=== PATIENT | female | born 1955 | race Caucasian/White ===

== ENCOUNTER → 2016-04-25 | Outpatient (CLI) | payer BC, OTHER ==
[~2016-04-25] MED LIST: CETI10TA84 PO; ESCI1TAB9 PO; HYDR25TA4 PO; LEVO112T4 PO; MULT-506 PO; PRM/3 PO; SYMIN160 INH
--- NOTE | 2016-04-25 11:24 | DIAGNOSTIC IMAGING REPORT ---
RIGHT FOOT MIN 3 VIEWS CLINICAL HISTORY: Right foot pain COMPARISON: None. DISCUSSION: 3 views reveal mild osteoarthritic changes the level the first metatarsal phalangeal joint. No acute fractures are visualized. There are no erosive or destructive changes. IMPRESSION: Minor degenerative change. No fractures identified. No evidence of erosive disease. Electronically signed by: Thom Cox M.D. 04/25/2016 11:23 AM Dictated Date/Time: 04/25/2016 11:22 AM
--- NOTE | 2016-04-25 11:35 | DIAGNOSTIC IMAGING REPORT ---
RIGHT ANKLE MIN 3 VIEWS CLINICAL HISTORY: RIGHT FOOT ANKLE PAIN Right pain COMPARISON: None. DISCUSSION: The bones and joint spaces appear intact. There is no evidence of fracture, dislocation or bony disease. There is no evidence for soft tissue swelling. IMPRESSION: Negative study. Electronically signed by: Theron Olmos M.D. 04/25/2016 11:33 AM Dictated Date/Time: 04/25/2016 11:33 AM
== END | disposition home or self-care (01) ==
LOC: C.RDSM 09:37
PROVIDERS: ATTEND Physical Medicine & Rehabilitation Sports Medicine
DX: M25.571 Pain in right ankle and joints of right foot (principal); M79.671 Pain in right foot

== ENCOUNTER → 2016-05-01 | Outpatient (CLI) | payer BC ==
--- NOTE | 2016-05-01 13:45 | MAMMOGRAPHY REPORT ---
BILATERAL DIGITAL SCREENING MAMMOGRAM WITH CAD: 05/01/2016 CLINICAL HISTORY: Routine screening. Patient has no complaints. TECHNIQUE: Current study was also evaluated with a Computer Aided Detection (CAD) system. Bilatera l CC and MLO views were obtained. COMPARISON: Comparison is made to exams dated: 04/30/2015 mammogram - [facility], 12/26/2013 mammogram, and 12/25/2012 mammogram - [facility]. BREAST COMPOSITION: There are scattered areas of fibroglandular density in both breasts. FINDINGS: No suspicious masses, calcifications, or areas of architectural distortion are noted in e ither breast. There has been no significant interval change compared to prior exams. IMPRESSION: ACR BI-RADS CATEGORY 1: NEGATIVE There is no mammographic evidence of malignancy. A 1 year screening mammogram is recommended. The p atient will receive written notification of the results. Approximately 10% of breast cancers are not detected with mammography. A negative mammographic repor t should not delay biopsy if a clinically suggestive mass is present. Italia Gil M.D. ah/:05/01/2016 10:46:05 Body Bumper: Roz GARCIA(R)(M), [facility] letter sent: Normal 1/2 BI-RADS Code: ACR BI-RADS Category 1: Negative
== END | disposition home or self-care (01) ==
LOC: C.MAMM 09:46
PROVIDERS: ATTEND Obstetrics & Gynecology
DX: Z12.31 Encounter for screening mammogram for malignant neoplasm of breast (principal)

== ENCOUNTER → 2016-05-26 | Outpatient (CLI) | payer BC ==
[2016-05-26 13:08] LABS: ALT/SGPT 26 U/L (12-78); BLOOD UREA NITROGEN 15 mg/dl (7-18); BUN/CREATININE RATIO 21.1 (10-20); CALCIUM 9.3 mg/dl (8.5-10.1); CARBON DIOXIDE 29 mmol/L (21-32); CHLORIDE 104 mmol/L (98-107); CHOLESTEROL 203 mg/dl (0-200); GLUCOSE 91 mg/dl (70-99); POTASSIUM 4.7 mmol/L (3.5-5.1); SODIUM 140 mmol/L (136-145)
[2016-05-26 13:17] LABS: ALB/GLOB RATIO 1.1 (0.9-2); ALKALINE PHOSPHATASE 125 U/L (45-117); AST/SGOT 17 U/L (15-37); CHOLESTEROL/HDL RATIO 4.3; HDL CHOLESTEROL 47 mg/dl; LDL CHOLESTEROL CALCULATED 137 mg/dl; TRIGLYCERIDES 95 mg/dl (0-150); VERY LOW DENSITY LIPOPROT CALC 19 mg/dl
== END | disposition home or self-care (01) ==
LOC: C.LABBFT 08:52
PROVIDERS: ATTEND Internal Medicine
DX: E55.9 Vitamin D deficiency, unspecified (principal); E78.5 Hyperlipidemia, unspecified

== ENCOUNTER → 2016-11-18 | Outpatient (CLI) | payer OTHER | END | disposition home or self-care (01) | LOC: C.LABBFT 13:22 | PROVIDERS: ATTEND Internal Medicine | DX: E03.9 Hypothyroidism, unspecified (principal) ==

== ENCOUNTER → 2017-01-02 | Outpatient (CLI) | payer OTHER ==
[~2017-01-02] MED LIST changes: +ASPI81TA28 PO; +IRBE-37 PO; +VITAMIN D PO; +VNTHFA/IN INH
--- NOTE | 2017-01-02 13:44 | MAMMOGRAPHY REPORT ---
THIS REPORT HAS BEEN AMENDED. UNILATERAL RIGHT DIGITAL DIAGNOSTIC MAMMOGRAM TOMOSYNTHESIS WITH CAD AND TARGETED RIGHT ULTRASOUND: 1 CLINICAL HISTORY: The patient reports a new palpable right breast lump, without associated pain or ot her complaints. TECHNIQUE: Breast tomosynthesis in addition to standard 2D mammography was performed. Current study was also evaluated with a Computer Aided Detection (CAD) system. Right CC and MLO 2-D and tomosynthe sis images were obtained. COMPARISON: Comparison is made to exams dated: 05/01/2016 mammogram, 04/30/2015 mammogram - [facility], 12/26/2013 mammogram, and 12/25/2012 mammogram - [facility]. BREAST COMPOSITION: There are scattered areas of fibroglandular density in the right breast. FINDINGS: A triangle marker daniels the site of the palpable lump in the right 6:00 breast. At the si te of the palpable lump there is a new lobulated mass in the right 6:00 far posterior breast. The ma ss is not completely included on the mammogram due to the far posterior location but measures at leas t 2.5 cm. The remainder of the right breast is stable mammographically compared to prior exams, with out suspicious masses, calcifications, or areas of architectural distortion noted. Targeted ultrasound was performed of the area of the palpable lump pointed out by the patient, in the right breast at approximately 5:00, 4 cm from the nipple. At the site of the palpable lump there is a lobulated hypoechoic solid-appearing mass which measures 3.0 x 2.4 x 2.2 cm. This corresponds wit h the mammographic mass and is suspicious. Recommend ultrasound guided core needle biopsy for furthe r evaluation. IMPRESSION: ACR BI-RADS CATEGORY 4: SUSPICIOUS, TARGETED ULTRASOUND ACR BI-RADS CATEGORY 4: SUSPICIO US Hypoechoic 3 cm mass at the site of the palpable lump in the right breast at approximately 5:00. The mass is suspicious and ultrasound-guided core needle biopsy is recommended for further evaluation. A phone call was made to the physician's office to confirm faxed results were received. The patient has been verbally notified of the results. The patient will return for ultrasound-guided biopsy late r today. Approximately 10% of breast cancers are not detected with mammography. A negative mammographic report should not delay biopsy if a clinically suggestive mass is present. Italia Gil M.D. ah/:01/02/2017 10:14:31 Acid Dumper: Janett HUNT)(Apoorva), [facility] letter sent: Abnormal 4/5 BI-RADS Code: ACR BI-RADS Category 4: Suspicious Ultrasound BI-RADS: ACR BI-RADS Category 4: Suspici ous AMENDMENT: 01/07/2017 Italia Gil M.D. Pathology from ultrasound guided biopsy of the right 5:00 breast mass was reviewed on 01/07/2017. Th e pathology shows high-grade carcinoma grade 3. The mass is negative for estrogen receptors, progest erone receptors, and HER-2/von. The pathology is concordant with the imaging appearance. Recommend surgical and oncology consultation. Also consider preoperative bilateral breast MRI, given the patho logy of a triple negative breast cancer. Amended BI-RADS: n/a
== END | disposition home or self-care (01) ==
LOC: C.MAMM 08:44
PROVIDERS: ATTEND Obstetrics & Gynecology
DX: N63.10 Unspecified lump in the right breast, unspecified quadrant (principal)

== ENCOUNTER → 2017-01-02 | Outpatient (CLI) | payer OTHER ==
--- NOTE | 2017-01-02 13:24 | Discharge Instructions ---
Discharge Instructions Procedure Procedure Date: Jan 02, 2017. Reason for visit: Right Mass. Discharge Discharge Date: Jan 02, 2017. Discharge Diagnosis: status post breast biopsy Instructions Activity Recommendations: Additional Limitations (see below) Return to School/Work: no limitations Recommended Home Diet: No Limitations Provider Instructions: ACTIVITY RECOMMENDATIONS: * No lifting, pushing, pulling or exercising the affected side for three days. RETURN TO SCHOOL/WORK: * You may return to work/school after the procedure, but do not perform any strenuous activities for 24 to 48 hours. MEDICATIONS: * Tylenol (two 325 mg) every four to six hours if needed for mild pain (if not allergic to Tylenol). DIET: * Resume previous diet. SPECIAL CARE INSTRUCTIONS: * Keep biopsy site dry for 24 hours. May shower after 24 hours, but do not soak (bathe) incision. * May remove Tegaderm (plastic patch) tomorrow AFTER showering. * Leave the steri-strips on for one week. Allow the steri-strips to fall off by themselves. If not off after one week, you may remove them. You may place a Bandaid crosswise over the strips, if desired. * Apply ice 10 minutes on and 10 minutes off as needed. * Wear a bra at bedtime to sleep more comfortably for 2-3 days. * Your referring physician should have the results after approximately 5 to 7 business days. * Call for unusual bleeding, fever, drainage, etc or if you have any questions call during normal business hours or after hours call Dr Gil, [phone]. FOLLOW UP VISIT: Follow-up with Referring Physician as scheduled. Allergies Coded Allergies: No Known Allergies (Unverified , 11/14/14) [place] More[place] Recommendations: Call your doctor if: * Temperature above 101 degrees * Pain not relieved by pain medicine ordered * There is increased drainage or redness from any incision * You have any unanswered questions or concerns. Your Doctors Instructions noted above were prepared by provider Italia Gil. Patient Signature Section: Patient Instructions Signature Page Lolly Valencia Patient (or Guardian) Signature/Date: I have read and understand the instructions given to me by my caregivers. Caregiver/RN/Doctor Signature/Date: The above-named patient and/or guardian has received patient instructions on this date. + Original Patient Signature Page (only) stays with chart. Please make copy for patient.
--- NOTE | 2017-01-02 13:42 | MAMMOGRAPHY REPORT ---
ULTRASOUND GUIDED BIOPSY RIGHT BREAST: 01/02/2017 CLINICAL HISTORY: Right 5:00 breast mass. PATIENT CONSENT: The procedure, risks and benefits were discussed with the patient and informed writt en consent was obtained. A timeout was performed immediately prior to the procedure. PROCEDURE DESCRIPTION: Preprocedural ultrasound was performed of the right axillary region, which tonja ws morphologically normal right axillary lymph nodes which are normal oval in shape and have normal e chogenic fatty harriett and thin peripheral cortices. No clear adenopathy is evident. With ultrasound guidance, aseptic technique, and lidocaine as the local anesthetic (1% lidocaine to a nesthetize the skin and 1% lidocaine with epinephrine to anesthetize the deeper tissues), the mass of concern in the right 5:00 breast was sampled 4 times with a 14-gauge Achieve biopsy needle. Immedia tely thereafter, with ultrasound guidance, aseptic technique, and lidocaine as the local anesthetic, a metallic localizer clip was placed centrally in the mass. Direct pressure was applied to the site immediately post procedure and hemostasis was achieved. Postprocedure unilateral mammograms were per formed to confirm placement of the clip in the expected location of the breast mass. The patient luisa erated the procedure without complication. She was given wound care instructions. The specimens were sent to pathology for analysis. COMPARISON: Comparison is made to exams dated: 01/02/2017 mammogram, 01/02/2017 ultrasound, 7 mammogram, 04/30/2015 mammogram - [facility], 12/26/2013 mammogram, and 12/25/2012 mammogram - [facility]. IMPRESSION: ULTRASOUND GUIDED BIOPSY Ultrasound guided core needle biopsy of the right 5:00 breast mass, with clip placement. The patient will receive pathology results from her referring provider. Italia Gil M.D. /:01/02/2017 13:26:45 Technical Analyst: Roz HUNT)(Apoorva), [facility]
--- NOTE | 2017-01-02 13:44 | MAMMOGRAPHY REPORT ---
UNILATERAL RIGHT DIGITAL DIAGNOSTIC MAMMOGRAM TOMOSYNTHESIS: 01/02/2017 CLINICAL HISTORY: Status post right breast biopsy. TECHNIQUE: Breast tomosynthesis in addition to standard 2D mammography was performed. Postprocedura l right CC and MLO tomosynthesis images including C views were obtained. COMPARISON: Comparison is made to exams dated: 01/02/2017 mammogram, 01/02/2017 ultrasound, 7 mammogram, 04/30/2015 mammogram - [facility], 12/26/2013 mammogram, and 12/25/2012 mammogram - [facility]. BREAST COMPOSITION: There are scattered areas of fibroglandular density in the right breast. FINDINGS: A new biopsy marker clip is seen within the biopsied mass centered around the right 5:00 b reast. No significant postbiopsy hematoma is seen. IMPRESSION: POST PROCEDURE IMAGING FOR MARKER PLACEMENT New biopsy marker clip status post right breast biopsy. Pathology results are pending. Approximately 10% of breast cancers are not detected with mammography. A negative mammographic report should not delay biopsy if a clinically suggestive mass is present. Italia Gil M.D. /:01/02/2017 13:34:46 Style Advisor: Roz GARCIA(Lucho)(M), [facility] BI-RADS Code: Post Procedure Imaging For Marker Placement
== END | disposition home or self-care (01) ==
LOC: C.MAMM 12:53
PROVIDERS: ATTEND Obstetrics & Gynecology
DX: C50.911 Malignant neoplasm of unspecified site of right female breast (principal)

== ENCOUNTER → 2017-01-12 | Outpatient (CLI) | payer OTHER ==
--- NOTE | 2017-01-12 11:18 | DIAGNOSTIC IMAGING REPORT ---
PET/CT SKULL-THIGH CLINICAL HISTORY: 61 years-old Female with BREAST CANCER. Right-sided breast mass identified within the 5:00 position 4 cm from the nipple, previously biopsied measuring up to 3.0 cm COMPARISON: Right breast and ultrasound 01/02/2017 TECHNIQUE: The patient was injected with 19.8 mCi of F-18 fluorodeoxyglucose (FDG) and an emission scan was performed from the skull vertex to the toes. Noncontrast CT was performed for attenuation correction and anatomic localization. The blood glucose level was 96 mg/dl. FINDINGS: HEAD AND NECK: Mildly hypermetabolic activity is noted about the oral pharynx, hypopharynx and epiglottis without correlate seen on the CT portion of the study suggesting recent speech. Mild mucosal secretions are seen within the left vallecula and left piriform sinus. Otherwise, there is a physiologic distribution of activity. CHEST: Mildly increased radiotracer uptake is seen homogeneously throughout the thyroid which may reflect underlying thyroiditis without discrete hypermetabolic nodule. Hypermetabolic likely conglomerate right axillary lymph nodes are seen measuring up to 1.6 x 1.2 cm on image 72 of series 3 which demonstrate slightly increased metabolic activity with SUV max of 1.3. Markedly FDG avid mass of the 5:00 region right breast with biopsy clip in place measures 2.4 x 2.2 cm on image 107 of series 3. No invasion into the chest wall. No additional hypermetabolic breast masses identified. No FDG avid pulmonary nodules identified to suggest pulmonary metastasis. No hypermetabolic mediastinal or hilar adenopathy. ABDOMEN AND PELVIS: There is a physiologic distribution of activity within the liver, spleen, adrenal glands, and urinary tracts. Slightly increased radiotracer uptake within the rectum is noted with SUV max of 2.9. No correlating mass on the CT portion of the study. MUSCULOSKELETAL SYSTEM AND EXTREMITIES: There is a physiologic distribution of activity within the bone marrow, with no hypermetabolic foci. ADDITIONAL CT FINDINGS: Mildly increased radiotracer uptake about the shoulders and hips is likely on a degenerative basis. No acute intra-abdominal or intrapelvic abnormality identified. Moderate atherosclerotic plaquing of the abdominal aorta. No bulky adenopathy. Mildly prominent periaortic lymph node measures 9 mm in short axis, image 144 series 3 the level of the kidneys without increased FDG uptake, likely physiologic. Prior hysterectomy. Normal appendix. Mild degenerative changes of the spine. IMPRESSION: 1. Hypermetabolic 2.4 cm mass of the 5:00 position right breast correlates with the previously biopsied breast carcinoma. 2. Mildly hypermetabolic conglomerate right axillary adenopathy measuring up to 1.6 cm is suspicious for lymphatic metastasis. 3. No additional hypermetabolic adenopathy or additional metastatic foci identified within the neck, chest, abdomen or pelvis. 4. Mildly increased FDG activity about the rectum is likely physiologic. This could be correlated with colonoscopy. The above report was generated using voice recognition software. It may contain grammatical, syntax or spelling errors. Electronically signed by: Mckay Dixon M.D. 01/12/2017 11:17 AM Dictated Date/Time: 01/12/2017 9:07 AM
== END | disposition home or self-care (01) ==
LOC: C.PET 06:40
PROVIDERS: ATTEND Surgery
DX: C50.311 Malignant neoplasm of lower-inner quadrant of right female breast (principal)

== ENCOUNTER → 2017-01-16 | Outpatient (CLI) | payer OTHER ==
[~2017-01-16] MED LIST changes: +OXYC-57 PO
--- NOTE | 2017-01-19 07:41 | MAMMOGRAPHY REPORT ---
UNILATERAL LEFT DIGITAL DIAGNOSTIC MAMMOGRAM TOMOSYNTHESIS WITH CAD AND TARGETED BILATERAL ULTRASOUND : 01/16/2017 CLINICAL HISTORY: Newly diagnosed triple negative right breast cancer. The patient reports that her doctor felt a possible left breast lump on clinical exam, however, the patient cannot clearly feel th e lump herself. The patient underwent breast MRI earlier the same day, which shows 2 adjacent abnorm al right axillary lymph nodes. TECHNIQUE: Breast tomosynthesis in addition to standard 2D mammography was performed. Current study was also evaluated with a Computer Aided Detection (CAD) system. Left CC and MLO 2-D and tomosynthes is images were obtained. COMPARISON: Comparison is made to exams dated: 01/16/2017 breast MRI, 01/02/2017 mammogram, 7 ultrasound biopsy, 01/02/2017 mammogram, 01/02/2017 ultrasound, and 05/01/2016 mammogram - [facility]. BREAST COMPOSITION: There are scattered areas of fibroglandular density in the left breast. FINDINGS: A triangle marker daniels the site of the palpable lump in the left 6:00 breast. There are no suspicious masses or other suspicious sonographic abnormalities in this region. The remainder of the left breast is stable compared to prior exams, without suspicious masses, calcifications, or area s of architectural distortion noted. Small nodular 8 mm asymmetry seen within the left medial train reservation clerk ior breast on the cc view is stable compared to multiple prior exams including the 2013 exam and show s no corresponding abnormal enhancement on breast MRI, and is therefore benign and felt to represent normal fibroglandular tissue. Targeted ultrasound was performed of the area of the palpable left breast lump. The patient could no t pinpoint the exact location of the lump but pointed to the general region in the inferior breast, t herefore, ultrasound was performed of the left lower outer and left lower inner quadrants. Sonograph ically normal tissue is seen, without evidence of a mass or other suspicious sonographic abnormality. Targeted ultrasound was performed of the right 5 to 6:00 breast to evaluate for the possible satellit e lesions seen on the recent breast MRI. In the right breast at 5:00, 6 cm from the nipple, there is a possible hypoechoic 4 x 6 mm mass, which may correspond with the enhancing mass seen on the breast MRI, likely the mass which is superior and posterior to the mass. An echogenic portion is seen cent rally, suggesting that this could represent an intramammary lymph node although no central vascularit y was seen. The other possible satellite lesion deep to the known malignancy was not appreciated on ultrasound. Targeted ultrasound of the right axillary region demonstrates 2 adjacent mildly prominent nodes, one measuring 11 x 9 mm and the other measuring 9 x 14 mm. The lymph nodes have normal echogenic fatty h yasmany although the peripheral hypoechoic cortices are at the upper limits of normal. These correspond with the areas of abnormal mitchell uptake seen on the recent PET CT scan and are therefore suspicious f or mitchell metastases. Recommend ultrasound-guided biopsy for further evaluation. Targeted ultrasound was also performed of the right 10:00 breast in the region of the most prominent focus seen on breast MRI. In the right breast at 10:00, 5 cm from the nipple, there is an oval circu mscribed hypoechoic 4 x 4 mm mass. In the right breast at 10:00, 2 cm from the nipple, there is a mi xed echogenicity 3 x 3 mm mass which contains a cystic portion as well as an adjacent round circumscr ibed hypoechoic 2 x 2 mm mass. In the right breast at 10:30, 4 cm from the nipple, there is an oval circumscribed oval hypoechoic 5 x 4 mm mass. One of the masses, possibly the mass in the right 10:30 breast, may correspond with the most prominent focus on the breast MRI which had benign MRI morpholo gy including benign type kinetics and circumscribed margins. The mass also has benign ultrasound fea tures and likely represents a fibroadenoma or other benign mass. IMPRESSION: ACR BI-RADS CATEGORY 4: SUSPICIOUS, TARGETED ULTRASOUND ACR BI-RADS CATEGORY 4: SUSPICIO US 1. No suspicious mammographic or sonographic abnormality at the site of the palpable left breast lum p. Recommend clinical follow-up. 2. Two adjacent prominent right axillary lymph nodes are seen on ultrasound, which correspond with th e areas of abnormal mitchell uptake seen on the recent PET-CT scan. Given the abnormal uptake, the node s are suspicious for metastases and ultrasound guided biopsy is recommended for further evaluation. 3. Small hypoechoic 6 mm mass in the right breast at 5:00 on ultrasound, which may correspond with on e of the satellite lesions seen on breast MRI. The other possible satellite lesion seen on breast MR I is not appreciated on ultrasound. 4. A few small benign-appearing hypoechoic circumscribed masses seen within the right 10 to 10:30 nicolas ast, one of which likely corresponds with an enhancing focus seen on breast MRI. Given the benign fe atures on ultrasound and MRI, the mass is benign and likely represents a fibroadenoma or other benign mass. The patient was verbally notified of the results. She returned later the same day for right axillary mitchell biopsy. Approximately 10% of breast cancers are not detected with mammography. A negative mammographic report should not delay biopsy if a clinically suggestive mass is present. Italia Gil M.D. ah/:01/18/2017 14:22:09 Core Dropper: Dawna Watkins, [facility] BI-RADS Code: ACR BI-RADS Category 4: Suspicious Ultrasound BI-RADS: ACR BI-RADS Category 4: Suspici ous
== END | disposition home or self-care (01) ==
LOC: C.MAMM 09:29
PROVIDERS: ATTEND Surgery
DX: N63.10 Unspecified lump in the right breast, unspecified quadrant (principal); C50.911 Malignant neoplasm of unspecified site of right female breast

== ENCOUNTER → 2017-01-23 | Outpatient (CLI) | payer OTHER ==
[~2017-01-23] MED LIST changes: -OXYC-57 PO
[2017-01-23 09:38] LABS: PROTHROMBIN TIME (PATIENT) 11.1 SECONDS (9.0-12.0)
== END | disposition home or self-care (01) ==
LOC: C.CPL 08:50
PROVIDERS: ATTEND Surgery
DX: Z01.812 Encounter for preprocedural laboratory examination (principal); C50.311 Malignant neoplasm of lower-inner quadrant of right female breast; C50.519 Malignant neoplasm of lower-outer quadrant of unspecified female breast

== ENCOUNTER 2017-01-27 08:07 | Observation (INO) | payer OTHER ==
[2017-01-23 15:31] VITALS: BMI 29.0
[2017-01-27] VITALS (8 sets, daily range): BP systolic 107–145; BP diastolic 69–91; PULSE 71–104; TEMP 36.4–37.3; O2SAT 95–98; Ht 162.6 cm; Wt 75.5 kg
[~2017-01-27] VITALS: Ht 162.6 cm; Wt 75.5 kg
[~2017-01-27 08:07] MED LIST changes: +CEFAZOLIN 2000MG IV PUSH 10 ML IV SCH; -CETI10TA84 PO; +LACTATED RINGER'S 1000ML 1,000 ML IV SCH; -PRM/3 PO
[2017-01-27] MEDS ORDERED: EpHEDrine SULFATE INJ 50 MG/ML AMP IV PRN ×2 (10:15→11:00)
[2017-01-27] MEDS ORDERED: PROMETHAZINE HCL INJ 6.25 MG in SODIUM CHLORIDE 0.9% 50ML 50 ML IV PRN ×2 (10:15→11:00)
[2017-01-27] MEDS ORDERED: ONDANSETRON INJ 2 MG/ML 2 ML VIAL IV PRN ×3 (10:15→15:15)
[2017-01-27] MEDS ORDERED: ATROPINE SULFATE 0.1 MG/ML 5ML SYR IV PRN ×2 (10:15→11:00)
[2017-01-27] MEDS ORDERED: FENTANYL CITRATE INJ 50 MCG/1 ML 2 ML VIAL IV PRN ×2 (10:15→11:00)
--- NOTE | 2017-01-27 10:26 | History & Physical Bridge Note ---
H&P Re-Evaluation Bridge Note: I have examined the patient, reviewed the History & Physical and in the interval since the performance of the History & Physical I have noted the following changes of clinical significance: No changes noted
[2017-01-27] MEDS ORDERED: MIDAZOLAM HCL 1 MG/ML 2ML VIAL ONE (10:37)
[2017-01-27] MEDS ORDERED: FENTANYL CITRATE INJ 50 MCG/1 ML 2 ML VIAL ONE (10:37)
[2017-01-27] MEDS ORDERED: BUPIVACAINE 0.5 % 5 MG/1 ML MPF 30ML VIAL ONE ×2 (10:40→10:48)
[2017-01-27] MEDS ORDERED: HEPARIN SOD (PORCINE) 1000 UNIT/ML 10 ML VIAL ONE (10:41)
[2017-01-27] MEDS ORDERED: BACITRACIN OINT 15 GM TUBE ONE (11:01)
[2017-01-27] MEDS ORDERED: LIDOCAINE HCL 2% 2 ML VIAL (20MG/ML) ONE (11:21)
[2017-01-27] MEDS ORDERED: LARYING-O-JET KIT (LTA) ONE ×2 (11:21)
[2017-01-27] MEDS ORDERED: PROPOFOL IV EMULSION 10 MG/ML 20 ML VIAL IV ONE ×2 (11:21→11:22)
[2017-01-27] MEDS ORDERED: ONDANSETRON INJ 2 MG/ML 2 ML VIAL ONE (11:22)
[2017-01-27] MEDS ORDERED: DEXAMETHASONE SOD INJ 4 MG/ML VIAL ONE (11:22)
[2017-01-27] MEDS ORDERED: METOCLOPRAMIDE HCL INJ 5 MG/ML 2 ML VIAL ONE (11:22)
[2017-01-27] MEDS ORDERED: ROCURONIUM BROMIDE 10 MG/ML 5 ML VIAL IV ONE (11:22)
[2017-01-27] MEDS ORDERED: DiphenhydrAMINE HCL 50 MG/ML VIAL ONE (11:22)
[2017-01-27] MEDS ORDERED: EpHEDrine SULFATE 50MG/5ML SYR ONE (11:22)
[2017-01-27] MEDS ORDERED: HYDROmorphone INJ 2 MG/ML SYR/VIAL ONE (11:48)
[2017-01-27] MEDS ORDERED: CEFAZOLIN SOD 1 GM VIAL ONE (14:04)
[2017-01-27] MEDS ORDERED: KETOROLAC TROMETHAMINE 30 MG/ML VIAL ONE (14:55)
[2017-01-27] MEDS ORDERED: OXYCODONE/ACETAMINOPHEN 5-325 TAB PO PRN (15:15)
[2017-01-27] MEDS ORDERED: MoRPHine SULFATE 4 MG/ML 1 ML CARP\\VIAL IV PRN (15:15)
[2017-01-27] MEDS ORDERED: ALBUTEROL HFA 8 GM INHALER INH PRN (15:15)
--- NOTE | 2017-01-27 15:16 | [facility] Post Operative Brief Note ---
Immediate Operative Summary Operative Date Jan 27, 2017. Pre-Operative Diagnosis Right Breast Cancer Post-Operative Diagnosis Right Breast Cancer Procedure(s) Performed Right Modified Radical Mastectomy; Mediport Placement Surgeon Dr. Michael Post Doc Fellowship Surgeon(s) Georgina Shell PA-C Estimated Blood Loss 20 cc Findings Left subclavian power port placed. Right modified radical mastectomy performed , rectus sheath taken at location of tumor. Level I and II nodes removed, thoracodorsal neurovascular bundle and long thoracic nerve identified and preserved. Specimens A: right breast mastectomy- short stitch- superior; long stitch- lateral; double stitch- deep; 3-stitches - axilla B: additional right axillary lymph node Drains 10mm yelena drain x2, (right axillary, left mastectomy) Anesthesia GETA Complication(s) None Disposition Recovery Room / PACU
--- NOTE | 2017-01-27 15:35 | Anesthesiology Progress Note ---
Anesthesia Post Op Note Date & Time Jan 27, 2017 at 15:35 Vital Signs Pain Intensity: 0 Vital Signs Past 12 Hours Date Time Temp Pulse Resp B/P (MAP) Pulse Ox O2 Delivery O2 Flow Rate FiO2 01/27/17 15:14 36.0 106 12 114/66 97 Oxymask 10 01/27/17 08:24 37.3 71 18 145/80 97 Room Air Notes Mental Status: alert / awake / arousable, participated in evaluation Pt Amnestic to Procedure: Yes Nausea / Vomiting: adequately controlled Pain: adequately controlled Airway Patency, RR, SpO2: stable & adequate BP & HR: stable & adequate Hydration State: stable & adequate Anesthetic Complications: no major complications apparent
--- NOTE | 2017-01-27 15:38 | [facility] Operative Report ---
Operative Report Operative Date Jan 27, 2017. Pre-Operative Diagnosis Right Breast Cancer Post-Operative Diagnosis Right breast cancer Procedure(s) Performed Left subclavian port placement; Right modified radical mastectomy Surgeon Dr. Michael Binder Technician Surgeon(s) Georgina Shell PA-C Estimated Blood Loss 20 cc Findings Left subclavian power port placed. Right modified radical mastectomy performed , rectus sheath taken at location of tumor. Level I and II nodes removed, thoracodorsal neurovascular bundle and long thoracic nerve identified and preserved. 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 She had preoperative staging with a PET scan and MRI that showed some active axillary lymph nodes. An FNA was unremarkable of this lymph node. After discussion at tumor Board, it was planned for modified radical mastectomy on the right. She also was planned for port placement for future chemotherapy. The risks of the procedure were discussed, all questions were answered, and the patient agreed to proceed with surgery as planned. Description of Procedure The patient was properly identified, consented, and taken to the operating room where she was placed in the supine position with both arms tucked and a shoulder roll placed vertically. General endotracheal anesthesia was induced. SCDs and a safety belt were placed. Preoperative antibiotics were administered. The patient's chest and neck was prepped and draped in the standard sterile fashion. Surgical timeout was performed and all parties were in agreement that this was the correct patient and procedure to be performed and we continued as planned. The patient was placed in Trendelenburg position. Local anesthetic was injected along the skin incision. The left subclavian vein was accessed on the first attempt using the access needle. The wire was placed and the needle was removed. Fluoroscopy confirmed placement into the subclavian vein extending into the superior vena cava. Transverse skin incision was made and a pocket was created for the port. The dilator and peel-away sheath were inserted over the wire. The catheter was then inserted through the peel-away sheath and fluoroscopy confirmed placement into the superior vena cava. The catheter was cut to 18 cm and attached to the port. The port was secured into place with 3- 0 Prolene sutures. A final x-ray revealed good placement of the port. The wound was irrigated and hemostasis was confirmed. The skin was closed with interrupted 3-0 Vicryl deep dermal sutures, followed by 4-0 Monocryl running subcuticular suture. Dermabond was placed over the wound. The port was accessed and sarina blood easily and flushed easily. It was flushed with heparinized saline. The patient was then repositioned and redraped so that we could proceed with a modified radical mastectomy of the right breast. The patient's right chest, arm , and axilla were prepped and draped in the standard sterile fashion. A transversely oriented elliptical incision was made that encompassed the nipple -arreolar complex. Flaps were raised to the clavicle superiorly, the sternum medially, and the rectus sheath inferiorly. The breast was then taken off the chest wall including the pectoralis fascia from superior medial to inferior lateral. At the area of the tumor, part of the rectus sheath was excised with the specimen. We then continued the dissection along the lateral border of the pectoralis muscle and continued with the axillary dissection. The clavicopectoral fascia was incised, we continued the dissection along the lateral border of the pectoralis muscle and under the pectoralis minor muscle. We excised level I and 2 lymph nodes. We then dissected tissue away from the axillary vein, being careful to leave a few millimeters of tissue to hopefully prevent lymphedema. We then continued our dissection along the chest wall, and the long thoracic nerve was identified. This was preserved throughout the case. We continued our dissection along the axillary vein until the thoracodorsal neurovascular bundle was identified, and this was also preserved throughout the case. We continued dissection along the medial portion of the latissimus dorsi muscle and down to the subscapularis and teres major muscle. We completed the dissection and the specimen was removed. The specimen was oriented. The wound was irrigated and hemostasis was confirmed. Two 10 mm YELENA drains were placed, one in the right axilla, one underneath the mastectomy flap. These exited inferior to the incision and were secured into place with 2- 0 nylon sutures. The skin was closed with interrupted 3-0 Vicryl deep dermal sutures, followed by 4-0 Monocryl running subcuticular suture. Dermabond was placed over the wound. The patient was extubated in the operating room and taken to the PACU where she recovered without apparent incident. All sponge, instrument and needle counts were correct at the conclusion of the procedure. The patient tolerated the procedure well. A chest x-ray was pending at the time of this dictation. I attest to the content of the Intraoperative Record and any orders documented therein. Any exceptions are noted below.
--- NOTE | 2017-01-27 15:47 | DIAGNOSTIC IMAGING REPORT ---
CHEST ONE VIEW PORTABLE HISTORY: port placement COMPARISON: None. FINDINGS: Left subclavian Port-A-Cath terminates in the SVC. The heart is normal in size. Small to moderate left pneumothorax. The AP component demonstrates a pleural gap of 8 mm. The basilar component demonstrates a pleural gap of 3 cm. The heart is normal in size. The right lung is clear. No pleural effusions. IMPRESSION: Interval placement left subclavian Port-A-Cath which terminates in the SVC. There is a small to moderate left pneumothorax. These findings were discussed with Dr. Michael at 3:50 PM 01/27/2017. Electronically signed by: Rylan Mendoza M.D. 01/27/2017 4:13 PM Dictated Date/Time: 01/27/2017 3:44 PM
[2017-01-27] MEDS ORDERED: IV FLUIDS COMPLETED PRN (16:00)
[2017-01-27] MEDS: LACTATED RINGER'S 1000ML 1,000 ML IV SCH (21:52)
[2017-01-28] VITALS (7 sets, daily range): BP systolic 132–142; BP diastolic 78–84; PULSE 66–69; TEMP 36.7–37.1; O2SAT 93–98
[2017-01-28] MEDS: KETOROLAC TROMETHAMINE 30 MG/ML VIAL IV. PRN ×2 (05:04→16:58)
[2017-01-28] MEDS: LEVOTHYROXINE 112 MCG TAB PO SCH (05:04)
--- NOTE | 2017-01-28 06:38 | DIAGNOSTIC IMAGING REPORT ---
CHEST 2 VIEWS ROUTINE CLINICAL HISTORY: pneumothorax COMPARISON STUDY: 01/27/2017 FINDINGS: The cardiac and mediastinal contours remain stable. There is a left-sided A-Port catheter unchanged in position. Surgical drains project over the right chest wall. There is a left-sided pneumothorax with a basilar pleural separation of approximately 5 cm. Air-fluid level visualized at the left base is consistent with a hydropneumothorax. There are atelectatic changes within the left lower lobe. IMPRESSION: 1. Enlarging left-sided hydropneumothorax Electronically signed by: Thom Cox M.D. 01/28/2017 6:36 AM Dictated Date/Time: 01/28/2017 6:33 AM
[2017-01-28] MEDS: ESCITALOPRAM OXALATE 10 MG TAB PO SCH (08:38)
[2017-01-28] MEDS: BUDESONIDE/FORMOTEROL FUMARATE 160/4.5 60 PUFFS/INHALER INH SCH (08:39)
[2017-01-28] MEDS: IRBESARTAN 150 MG TAB PO SCH (08:39)
--- NOTE | 2017-01-28 10:42 | Surgery Progress Note ---
Surgery Progress Note Date of Service Jan 28, 2017. Subjective Post OP Day: 1 + feeling well, + ambulating, + pain controlled, + diet (Tolerating regular diet ), No bowel movement, No nausea, No vomiting s/p right radical mastectomy with left port placement. Post-op x-ray 01/27/17 revealed Small to moderate left pneumothorax. Follow- up x-ray from 01/28/2017 AM revealed an enlarging left hydropneumothorax. Wearing compression bra, reports it is a little tight. Patient is alert and talkative. ' Objective Vital Signs: Date Time Temp Pulse Resp B/P (MAP) Pulse Ox O2 Delivery O2 Flow Rate FiO2 01/28/17 07:45 Nasal Cannula 2.0 01/28/17 07:16 36.9 66 17 142/84 (103) 93 Humidified Oxygen 2.0 01/28/17 05:42 Nasal Cannula 2.0 01/28/17 03:46 36.7 66 16 132/78 (96) 98 Oxymask 10.0 01/28/17 00:37 96 Mask 10.0 01/27/17 22:57 36.5 72 16 116/69 (85) 98 Oxymask 10.0 01/27/17 19:23 36.6 86 18 126/72 (90) 98 Humidified Air 10.0 Mask 01/27/17 18:24 36.5 93 18 136/76 (96) 95 Nasal Cannula 3.0 Humidified Air 01/27/17 17:17 36.7 97 18 107/69 (82) 97 Nasal Cannula 3.0 Humidified Air 01/27/17 16:47 96 Nasal Cannula 2.0 01/27/17 16:46 36.4 103 18 109/72 (84) 96 Nasal Cannula 2.0 01/27/17 16:15 36.7 104 18 130/91 (104) 96 Nasal Cannula 2.0 01/27/17 16:05 96 18 122/73 96 Nasal Cannula 2 01/27/17 15:50 36.0 103 21 121/72 96 Nasal Cannula 2 01/27/17 15:40 111 21 119/71 95 Nasal Cannula 2 01/27/17 15:30 114 20 116/66 98 Oxymask 10 01/27/17 15:20 108 19 119/66 97 Oxymask 10 01/27/17 15:14 36.0 106 12 114/66 97 Oxymask 10 Physical Exam: DOLORES drainage (DOLORES#1 left breast = 70ml, DOLORES#2 right breast 40 ml) General Appearance: WD/WN, no apparent distress Head: normocephalic, atraumatic Neck: supple, trachea midline Respiratory/Chest: no respiratory distress, no accessory muscle use, + pertinent finding (Mild TTP over incision sites. No swelling, erythema or incisional drainage noted. ) Incision(s): clean, dry, intact, no erythema, no drainage Assessment & Plan POD#1 s/p right radical mastectomy and left port placement with DOLORES drain x 2 Patient seen and examined with Dr. Michael. Doing well, tolerating regular diet. Pain controlled with PO Percocet. Follow-up PA/Lateral CXR this PM to follow left sided pneumothorax Surgery will continue to follow
[2017-01-28] MEDS: LACTATED RINGER'S 1000ML 1,000 ML IV SCH (11:19)
--- NOTE | 2017-01-28 16:04 | DIAGNOSTIC IMAGING REPORT ---
CHEST 2 VIEWS ROUTINE CLINICAL HISTORY: Follow-up left hydropneumothorax. COMPARISON STUDY: Chest radiograph January 28, 2017 at 5:04 AM FINDINGS: A left subclavian Plhaor-s-Vhmm is in place. A moderate size left hydropneumothorax has mildly increased in size since exam performed earlier today. The basilar component has slightly diminished while the apical component has increased. There is no right pneumothorax. Right chest wall surgical drains are in place. IMPRESSION: Mild increase in size of a moderate left hydropneumothorax since exam performed earlier today. Electronically signed by: Js Aguilar M.D. 01/28/2017 4:02 PM Dictated Date/Time: 01/28/2017 3:58 PM
[2017-01-29] MEDS: LACTATED RINGER'S 1000ML 1,000 ML IV SCH (00:22)
[2017-01-29] MEDS: LEVOTHYROXINE 112 MCG TAB PO SCH (05:20)
--- NOTE | 2017-01-29 07:03 | DIAGNOSTIC IMAGING REPORT ---
CHEST 2 VIEWS ROUTINE CLINICAL HISTORY: left pneumothorax COMPARISON STUDY: 01/28/2017 FINDINGS: The left-sided A-Port catheter remains unchanged in position. Surgical drains project over the right chest wall. There is a persistent left-sided hydropneumothorax slightly smaller than on the preceding study. There are persistent airspace opacities within the left lower lobe. IMPRESSION: Slight interval decrease in the size of the moderate left-sided hydropneumothorax. Electronically signed by: Thom Cox M.D. 01/29/2017 7:02 AM Dictated Date/Time: 01/29/2017 7:00 AM
[2017-01-29 07:30] VITALS: BP 150/98; PULSE 68; TEMP 36.8; O2SAT 93
[2017-01-29] MEDS: ESCITALOPRAM OXALATE 10 MG TAB PO SCH (09:04)
[2017-01-29] MEDS: IRBESARTAN 150 MG TAB PO SCH (09:04)
[2017-01-29] MEDS: BUDESONIDE/FORMOTEROL FUMARATE 160/4.5 60 PUFFS/INHALER INH SCH (09:04)
[2017-01-29] MEDS ORDERED: NURSING VERBAL MED ORDER ONE (09:30)
--- NOTE | 2017-01-29 09:33 | Surgery Progress Note ---
Surgery Progress Note Date of Service Jan 29, 2017. Subjective Post OP Day: 2 + feeling well, + ambulating, + pain controlled, + diet (Tolerating regular diet ), No complaints, No SOB, No nausea, No vomiting Patient presents 2 days s/p right radical mastectomy with left access port placement. She developed a post-op left hydropneumothorax, Asymptomatic at this time. Denies chest pain, SOB, coughing, wheezing. Doing well, would like to go home today. Objective Vital Signs: Date Time Temp Pulse Resp B/P (MAP) Pulse Ox O2 Delivery O2 Flow Rate FiO2 01/29/17 07:36 Nasal Cannula 2.0 Humidified Oxygen 01/29/17 07:30 36.8 68 20 150/98 (115) 93 Room Air 01/29/17 00:10 Oxymask Humidified Oxygen 01/28/17 23:09 36.8 68 16 138/84 (102) 97 Oxymask 2.0 Humidified Oxygen 01/28/17 15:48 36.9 68 16 141/82 (101) 94 Room Air 01/28/17 15:45 95 Nasal Cannula 2.0 01/28/17 11:20 37.1 69 18 137/82 (100) 95 Room Air Physical Exam: DOLORES drainage (210 ml DOLORES #2, 225 ml DOLORES#1 Yesterday, serosanguinous ) General Appearance: WD/WN, no apparent distress Head: normocephalic, atraumatic Neck: supple, trachea midline Respiratory/Chest: chest non-tender, no respiratory distress, no accessory muscle use Abdomen: non tender, non distended, soft, no organomegaly Diagnostic Interpretation: CHEST 2 VIEWS ROUTINE CLINICAL HISTORY: left pneumothorax COMPARISON STUDY: 01/28/2017 FINDINGS: The left-sided A-Port catheter remains unchanged in position. Surgical drains project over the right chest wall. There is a persistent left-sided hydropneumothorax slightly smaller than on the preceding study. There are persistent airspace opacities within the left lower lobe. IMPRESSION: Slight interval decrease in the size of the moderate left-sided hydropneumothorax. Assessment & Plan POD #2 s/p right radical mastectomy and left port placement Patient seen and examined with Dr. Michael. Doing well, remains asymptomatic, tolerating regular diet, pain controlled, DOLORES drain in place x 2 - serosanguinous. CXR this AM reported slight improvement. Findings reviewed with Dr. Rea Patient no longer needs fluids - D/C IV access Patient may shower, advised to cover her drains if she does so. F/U PA/Lateral CXR in AM Will F/U in AM, Possible discharge tomorrow. Feel free to contact with any questions or concerns. ambulate POD#1 s/p right radical mastectomy and left port placement with DOLORES drain x 2 Patient seen and examined with Dr. Michael. Doing well, tolerating regular diet. Pain controlled with PO Percocet. Follow-up PA/Lateral CXR this PM to follow left sided pneumothorax Surgery will continue to follow
[2017-01-29 15:05] VITALS: BP 137/91; PULSE 89; TEMP 37.1; O2SAT 95
[2017-01-29 15:45] VITALS: O2SAT 95
[2017-01-29 23:01] VITALS: BP 148/80; PULSE 78; TEMP 37.3; O2SAT 98
[2017-01-30] MEDS: LEVOTHYROXINE 112 MCG TAB PO SCH (05:38)
--- NOTE | 2017-01-30 06:48 | DIAGNOSTIC IMAGING REPORT ---
CHEST 2 VIEWS ROUTINE HISTORY: 61 years-old Female Left pneumothorax follow-up study in a patient with left-sided pneumothorax COMPARISON: Chest radiograph 01/29/2017 TECHNIQUE: 2 views of the chest FINDINGS: Left-sided Znlfgr-[id number]-Agka catheter is unchanged in positioning. Cardiomediastinal and hilar silhouettes are within normal limits. Persistent left-sided hydropneumothorax appears unchanged airspace opacities at the left lung base are redemonstrated. Bones appear grossly intact. IMPRESSION: Unchanged appearance of the small to moderate left hydropneumothorax with persistent left basilar consolidation suggesting atelectasis. The above report was generated using voice recognition software. It may contain grammatical, syntax or spelling errors. Electronically signed by: Mckay Dixon M.D. 01/30/2017 6:47 AM Dictated Date/Time: 01/30/2017 6:44 AM
[2017-01-30 08:35] VITALS: O2SAT 94
[2017-01-30] MEDS: ESCITALOPRAM OXALATE 10 MG TAB PO SCH (08:50)
[2017-01-30] MEDS: IRBESARTAN 150 MG TAB PO SCH (08:51)
[2017-01-30 09:19] VITALS: BP 130/77; PULSE 78; TEMP 36.5; O2SAT 94
[2017-01-30] MEDS: BUDESONIDE/FORMOTEROL FUMARATE 160/4.5 60 PUFFS/INHALER INH SCH (09:23)
[2017-01-30 10:00] VITALS: BP 130/77; PULSE 78; TEMP 36.5; O2SAT 94
--- NOTE | 2017-01-30 10:38 | Surgery Progress Note ---
Surgery Progress Note Date of Service Jan 30, 2017. Subjective Post OP Day: 3 + feeling well, + ambulating, + pain controlled, No complaints, No chest pain, No SOB Patient sitting up in chair next to bed- no new concerns and no complaints. Objective Vital Signs: Date Time Temp Pulse Resp B/P (MAP) Pulse Ox O2 Delivery O2 Flow Rate FiO2 01/30/17 07:15 Nasal Cannula 3.0 01/29/17 23:15 Nasal Cannula 2.0 Oxymask Humidified Oxygen 01/29/17 23:01 37.3 78 16 148/80 (102) 98 Nasal Cannula 2.0 Oxymask Humidified Oxygen 01/29/17 15:45 95 Nasal Cannula 2.0 Oxymask Humidified Oxygen 01/29/17 15:05 37.1 89 18 137/91 (106) 95 2.0 General Appearance: WD/WN, no apparent distress Head: normocephalic, atraumatic Respiratory/Chest: chest non-tender, lungs clear, no respiratory distress, no accessory muscle use Incision(s): clean, dry, intact Laboratory Results: CHEST 2 VIEWS ROUTINE HISTORY: 61 years-old Female Left pneumothorax follow-up study in a patient with left-sided pneumothorax COMPARISON: Chest radiograph 01/29/2017 TECHNIQUE: 2 views of the chest FINDINGS: Left-sided Eoksjo-v-Mzua catheter is unchanged in positioning. Cardiomediastinal and hilar silhouettes are within normal limits. Persistent left-sided hydropneumothorax appears unchanged airspace opacities at the left lung base are redemonstrated. Bones appear grossly intact. IMPRESSION: Unchanged appearance of the small to moderate left hydropneumothorax with persistent left basilar consolidation suggesting atelectasis. The above report was generated using voice recognition software. It may contain grammatical, syntax or spelling errors. Electronically signed by: Mckay Dixon M.D. 01/30/2017 6:47 AM Dictated Date/Time: 01/30/2017 6:44 AM Assessment & Plan POD #3 s/p Right Modified Radical Mastectomy with Left Chest Power Port Placement, post-op hydropneumothorax Patient continues to feel well- no new concerns. Patient tolerating diet, pain is controlled, incision is clean, dry, and intact. Patient continues to remain asymptomatic from hydropneumothorax. CXR reviewed from this AM. Pathology reviewed and discussed with patient. Have been discussing patient with Dr. Rea- will place official consult in to Thoracic Surgery. Patient to be discharged today. Patient to follow-up with Dr. Michael in the office next week- will obtain CXR Thursday prior to outpatient appointment. Patient will also follow-up with Dr. Rea as well. Patient seen and examined with Dr. Michael. If patient were to develop pain, chest pain, shortness of breath she is to return to ED for evaluation. POD #2 s/p right radical mastectomy and left port placement Patient seen and examined with Dr. Michael. Doing well, remains asymptomatic, tolerating regular diet, pain controlled, DOLORES drain in place x 2 - serosanguinous. CXR this AM reported slight improvement. Findings reviewed with Dr. Rea Patient no longer needs fluids - D/C IV access Patient may shower, advised to cover her drains if she does so. F/U PA/Lateral CXR in AM Will F/U in AM, Possible discharge tomorrow. Feel free to contact with any questions or concerns. POD#1 s/p right radical mastectomy and left port placement with DOLORES drain x 2 Patient seen and examined with Dr. Michael. Doing well, tolerating regular diet. Pain controlled with PO Percocet. Follow-up PA/Lateral CXR this PM to follow left sided pneumothorax Surgery will continue to follow
[2017-01-30] MEDS ORDERED: OXYC-57 PO ×2 (10:53→11:00)
--- NOTE | 2017-01-30 10:56 | Discharge Instructions ---
Discharge Instructions Date of Service Jan 30, 2017. Admission Reason for Admission: Right Breast Cancer Discharge Discharge Diagnosis / Problem: Right Breast Cancer Discharge Goals Goal(s): Decrease discomfort, Improve function, Learn about illness Activity Recommendations Activity Limitations: as noted below Lifting Limitations: no more than 10 pounds Exercise/Sports Limitations: until after follow-up appointment May Resume Sexual Activity: after follow-up appointment Shower/Bathe: no limitations Driving or Machine Use: resume 1 day after discharge . Instructions / Follow-Up Instructions / Follow-Up You have a follow-up appointment with Dr. Michael next February 03. Please present to [facility] to obtain your chest x-ray prior to your appointment. Please call the office at [phone] with any questions or concerns. Current Hospital Diet Patient's current hospital diet: Regular Diet Discharge Diet Recommended Diet: Regular Diet Procedures Procedures Performed: Right Modified Radical Mastectomy; Mediport Placement Pending Studies Studies pending at discharge: yes List of pending studies: Pathology report. Medical Emergencies . Who to Call and When: Medical Emergencies: If at any time you feel your situation is an emergency, please call 911 immediately. . Non-Emergent Contact Non-Emergency issues call your: Primary Care Provider, Surgeon Call Non-Emergent contact if: temperature is above 101.5, your pain is not controlled, wound has increased drainage, wound has increased redness . "Provider Documentation" section prepared by Lavern Oquendo. . VTE Core Measure Inpt VTE Proph given/why not?: SCD's [place] Drug Monitoring Program Search Results: patient reviewed within database, no issues identified
[2017-01-30 11:20] VITALS: O2SAT 94
--- NOTE | 2017-01-30 12:03 | SURGICAL CONSULTATION ---
DATE OF CONSULTATION: 01/30/2017 REASON FOR CONSULTATION: Left pneumothorax. HISTORY OF PRESENT ILLNESS: This is a very nice 61-year-old female who underwent a right modified radical mastectomy and a left subclavian port placement by Dr. Lance Michael on 01/27/2017. She did well; however, she was noted to have an iatrogenic pneumothorax on the left side. This was watched in the following day on 01/28/2017 and it was about the same; however, yesterday on 01/29/2017, it appeared to be a bit larger to me. Today, she had another x-ray and it appears to be a bit smaller, although the basilar aspect of it is still fairly significant with flattening of the diaphragm. She really has no symptoms. She stated that 2 days ago, she had some pain upon inspiration, but this has now abated. Saturations have been very good. PAST MEDICAL HISTORY: 1. Cancer, right breast. 2. Hypertension. 3. Hypothyroidism. PAST SURGICAL HISTORY: 1. 2 para 2. 2. Right modified radical mastectomy. 3. Insertion of left subclavian Port-A-Cath. MEDICATIONS (AT HOME): 1. Ventolin inhaler. 2. Aspirin. 3. Symbicort. 4. Lexapro. 5. Hydrochlorothiazide. 6. Avapro. 7. Synthroid. 8. Multivitamins. ALLERGIES: MONTELUKAST, ROSUVASTATIN, VENLAFAXINE, AND ZOSTER VACCINE. SOCIAL HISTORY: The patient lives at home with her . She is not a cigarette smoker. She does have 2 dogs at home. She is independent of her activities of daily living. FAMILY HISTORY: Noncontributory. REVIEW OF SYSTEMS: Please refer to full history and physical, but she had no weight loss and no pulmonary symptoms prior to coming into the hospital. She had no GI or complaints. There is no skin breakdown. No visual or auditory or neurologic signs or symptoms. PHYSICAL EXAMINATION: GENERAL: This is a 5 feet 4 inches, 166 pound female who is awake, alert and oriented. HEENT: Extraocular movements are intact. Pupils are equal, round and reactive. Sclerae are anicteric. Her teeth are in excellent repair. Tongue is midline. NECK: Supple. She has no neck vein distention or tracheal deviation. LUNGS: She has pretty good breath sounds in both lung hendrickson with slight decrease in the left posteriorly and basally. HEART: She has regular rate and rhythm of her heart. ABDOMEN: Soft and nontender. BREASTS: She has dressings over her right mastectomy incision. EXTREMITIES: She has no peripheral edema. She has excellent peripheral pulses. No joint effusions. NEUROLOGIC: She is awake, alert and oriented. ASSESSMENT AND PLAN: Iatrogenic left pneumothorax, this is improving. We are going to allow the patient to be discharged. I will see her back in the office in [address] Michael with a chest x-ray.
== END 2017-01-30 11:40 | disposition home or self-care (01) ==
LOC: C.ACU 08:07 → C.MSN 15:12 → ENRESERV 15:47
PROVIDERS: ADMIT Surgery; ATTEND Surgery
DX: C50.311 Malignant neoplasm of lower-inner quadrant of right female breast (principal); D76.3 Other histiocytosis syndromes; Z17.1 Estrogen receptor negative status [ER-]; I10 Essential (primary) hypertension; E78.5 Hyperlipidemia, unspecified; E03.9 Hypothyroidism, unspecified; K21.9 Gastro-esophageal reflux disease without esophagitis; J45.909 Unspecified asthma, uncomplicated; G25.81 Restless legs syndrome; E55.9 Vitamin D deficiency, unspecified; M85.80 Other specified disorders of bone density and structure, unspecified site; F41.8 Other specified anxiety disorders; Z87.891 Personal history of nicotine dependence; Z79.82 Long term (current) use of aspirin; Z79.899 Other long term (current) drug therapy

== ENCOUNTER → 2017-02-02 | Outpatient (CLI) | payer OTHER ==
[~2017-02-02] MED LIST changes: -CEFAZOLIN 2000MG IV PUSH 10 ML IV SCH; -LACTATED RINGER'S 1000ML 1,000 ML IV SCH; +OXYC-57 PO
--- NOTE | 2017-02-02 16:40 | ECHOCARDIOGRAM REPORT ---
*NOTICE TO RECEIVING REPUBLICAN AGENCY This information is strictly Confidential and protected under [place] law. [place] law prohibits you from making any further disclosure of this information unless further disclosure is expressly permitted by the written consent of the person to whom it pertains or is authorized by law. A general authorization for the release of medical or other information is not sufficient for this purpose. Hospital accepts no responsibility if the information is made available to any other person, INCLUDING THE PATIENT. Interpretation Summary * Name: MOLINA FRANK Study Date: 02/02/2017 02:34 PM BP: 123/70 mmHg * Patient Location: [facility] HR: 76 * : 1955 (M/d/yyyy) Gender: Female Height: 64 in * Age: 61 yrs Ethnicity: [place] Weight: 160 lb * Ordering Physician: Patrick Hanson * Performed By: Agnieszka Nash RCS * * Reason For Study: PRE-CHEMO * BSA: 1.8 m2 * -- Conclusions -- * 1. Normal LV size and wall thickness. * 2. Normal LV systolic function. LVEF 55-60%. No regional wall motion abnormalities. * 3. Normal RV size and function. * 4. No significant valvular pathology. * 5. No prior studies for comparison. Procedure Details * A complete two-dimensional transthoracic echocardiogram was performed (2D, M-mode, Doppler and color flow Doppler). Left Ventricle * The left ventricle is grossly normal size. * There is normal left ventricular wall thickness. * Ejection Fraction = 55-60%. * Regional wall motion abnormalities cannot be excluded due to limited visualization. Right Ventricle * The right ventricle is grossly normal size. * The right ventricular systolic function is normal as assessed by tricuspid annular plane systolic excursion (TAPSE) (normal >1.5 cm). Atria * The left atrial size is normal. * Right atrial size is normal. * No ASD detected; PFO is not assessed. Mitral Valve * The mitral valve is grossly normal. * There is no mitral valve stenosis. * Significant mitral regurgitation is absent. Tricuspid Valve * There is trace tricuspid regurgitation. Aortic Valve * The aortic valve opens well. * No hemodynamically significant valvular aortic stenosis. * There is no significant aortic regurgitation. Pulmonic Valve * The pulmonary valve is inadequately visualized, but the Doppler data is adequate for interpretation. Great Vessels * The aortic root and proximal ascending aorta are normal sized. Pericardium/Pleural * There is no pericardial effusion. Great Vessels * Normal inferior vena cava size and collapsability with sniff indicates a normal right atrial pressure of 3 mmHg MMode 2D Measurements and Calculations IVSd 1.0 cm IVSs 1.4 cm LVIDd 3.8 cm LVIDs 3.5 cm LVPWd 1.1 cm LVPWs 1.2 cm IVS/LVPW 0.92 FS 8.5 % EDV(Teich) 62.4 ml ESV(Teich) 50.4 ml EF(Teich) 19.2 % EDV(cubed) 55.3 ml ESV(cubed) 42.3 ml EF(cubed) 23.5 % % IVS thick 30.1 % % LVPW thick 7.0 % LV mass(C)d 134.0 grams LV mass(C)dI 75.3 grams/m\S\2 LV mass(C)s 151.1 grams LV mass(C)sI 84.9 grams/m\S\2 SV(Teich) 12.0 ml SI(Teich) 6.7 ml/m\S\2 SV(cubed) 13.0 ml SI(cubed) 7.3 ml/m\S\2 LVAd ap4 31.0 cm\S\2 LVLd ap4 7.6 cm EDV(MOD-sp4) 101.8 ml EDV(sp4-el) 106.8 ml LVAs ap4 19.4 cm\S\2 LVLs ap4 6.3 cm ESV(MOD-sp4) 49.8 ml ESV(sp4-el) 50.2 ml EF(MOD-sp4) 51.1 % EF(sp4-el) 53.0 % LVAd ap2 28.8 cm\S\2 LVLd ap2 7.7 cm EDV(MOD-sp2) 89.0 ml EDV(sp2-el) 90.9 ml LVAs ap2 20.4 cm\S\2 LVLs ap2 6.6 cm ESV(MOD-sp2) 52.7 ml ESV(sp2-el) 53.4 ml EF(MOD-sp2) 40.8 % EF(sp2-el) 41.2 % LVLd %diff 1.1 % EDV(MOD-bp) 95.0 ml LVLs %diff 4.3 % ESV(MOD-bp) 51.8 ml EF(MOD-bp) 45.5 % SV(MOD-sp4) 52.0 ml SI(MOD-sp4) 29.2 ml/m\S\2 SV(MOD-sp2) 36.3 ml SI(MOD-sp2) 20.4 ml/m\S\2 SV(MOD-bp) 43.2 ml SI(MOD-bp) 24.3 ml/m\S\2 SV(sp4-el) 56.6 ml SI(sp4-el) 31.8 ml/m\S\2 SV(sp2-el) 37.4 ml SI(sp2-el) 21.0 ml/m\S\2 Doppler Measurements and Calculations MV E max tonny 63.1 cm/sec MV A max tonny 57.7 cm/sec MV E/A 1.1 MV P1/2t max tonny 70.7 cm/sec MV P1/2t 61.9 msec MVA(P1/2t) 3.6 cm\S\2 MV dec slope 334.6 cm/sec\S\2 MV dec time 0.29 sec Ao V2 max 114.7 cm/sec Ao max PG 5.3 mmHg Ao max PG (full) 1.7 mmHg LV V1 max PG 3.6 mmHg LV V1 max 94.9 cm/sec PA V2 max 85.4 cm/sec PA max PG 2.9 mmHg TR max tonny 197.6 cm/sec
== END | disposition home or self-care (01) ==
LOC: C.CPL 13:25
PROVIDERS: ATTEND Internal Medicine Hematology & Oncology
DX: C50.519 Malignant neoplasm of lower-outer quadrant of unspecified female breast (principal)

== ENCOUNTER → 2017-02-03 | Outpatient (CLI) | payer OTHER ==
--- NOTE | 2017-02-03 13:24 | DIAGNOSTIC IMAGING REPORT ---
CHEST 2 VIEWS ROUTINE HISTORY: J93.83 Pneumothorax, [id number] COMPARISON: Chest 01/30/2017. FINDINGS: Decrease in size in the small left hydropneumothorax. This demonstrates a maximal pleural gap of 9 mm. No right-sided pneumothorax. The heart is normal in size. Left subclavian Port-A-Cath terminates in the SVC. Surgical drains are seen along the right chest wall. IMPRESSION: Decrease in size in the small left hydropneumothorax. Electronically signed by: Rylan Mendoza M.D. 02/03/2017 1:22 PM Dictated Date/Time: 02/03/2017 1:21 PM
== END | disposition home or self-care (01) ==
LOC: C.RAD 12:14
PROVIDERS: ATTEND Surgery
DX: J93.83 Other pneumothorax (principal)

== ENCOUNTER → 2017-02-09 | Outpatient (CLI) | payer OTHER ==
[~2017-02-09] MED LIST changes: -OXYC-57 PO
[2017-02-09 13:39] LABS: BASO % 0.4 %; BASO ABS # 0.03 K/uL (0-0.2); COMPLETE YES; EOS % 2.8 %; HEMATOCRIT 38.3 % (37-47); IG% 0.5 %; LYMPH % 21.8 %; LYMPH ABS # 1.74 K/uL (1.2-3.4); MEAN CELL VOLUME 84.7 fL (80-100); MEAN CORPUSCULAR HEMOGLOBIN 27.4 pg (25-34); MEAN CORPUSCULAR HGB CONC 32.4 g/dl (32-36); MEAN PLATELET VOLUME 11.9 fL (7.4-10.4); MONO % 6.1 %; NEUT % 68.4 %; PLATELET COUNT 252 K/uL (130-400); RED BLOOD COUNT 4.52 M/uL (4.2-5.4); WHITE BLOOD COUNT 7.99 K/uL (4.8-10.8)
[2017-02-09 14:15] LABS: ALT/SGPT 19 U/L (12-78); BLOOD UREA NITROGEN 14 mg/dl (7-18); BUN/CREATININE RATIO 24.6 (10-20); CALCIUM 8.9 mg/dl (8.5-10.1); CARBON DIOXIDE 27 mmol/L (21-32); CHLORIDE 104 mmol/L (98-107); CREATININE 0.57 mg/dl (0.60-1.20); GLUCOSE 85 mg/dl (70-99); POTASSIUM 4.1 mmol/L (3.5-5.1); SODIUM 139 mmol/L (136-145)
[2017-02-09 14:18] LABS: ALKALINE PHOSPHATASE 105 U/L (45-117); AST/SGOT 14 U/L (15-37)
== END | disposition home or self-care (01) ==
LOC: C.LAB1850 11:57
PROVIDERS: ATTEND Internal Medicine Hematology & Oncology
DX: C50.519 Malignant neoplasm of lower-outer quadrant of unspecified female breast (principal)

== ENCOUNTER 2017-03-07 07:47 | Emergency (ER) | payer OTHER ==
[~2017-03-07] VITALS: Ht 165.1 cm; Wt 75.2 kg
[2017-03-07 07:51] VITALS: TEMP 36.9; Ht 165.1 cm; Wt 75.2 kg
[2017-03-07] MEDS ORDERED: TRAM-10 PO (08:17)
[2017-03-07] MEDS ORDERED: AMOX875T PO (08:17)
[2017-03-07 08:27] VITALS: BP 128/76; PULSE 78; O2SAT 98
--- NOTE | 2017-03-07 15:39 | EMERGENCY ROOM VISIT NOTE ---
History First contact with patient: 07:54 Chief Complaint: SINUS CONGESTION/PRESSURE Stated Complaint: SINUS INFECTION Nursing Triage Summary: patient of chemo and [facility]. with congestion and head ache in the frontal and check area with nasuea and dry heaving, cough and congestion. History of Present Illness The patient is a 62 year old female who presents to the Emergency Room with complaints of a headache, sinus congestion, postnasal drip and productive cough of yellow mucus. The patient reports that her symptoms have been worsening over the past 3 days, having had a cold for about 5-7 days. The patient is also having problems with nausea that she is uncertain is due to her current infection, or from chemotherapy that she just started for breast cancer. The patient is status post right mastectomy on 02/01/17. The patient has not had any fevers or chills. She rates her discomfort an 8 out of 10. Review of Systems 10 system review was performed and was negative except for pertinent positives and negatives as indicated in history of present illness Past Medical/Surgical History Medical Problems: (1) Breast cancer Medical Problems: (1) Breast cancer (2) Essential (primary) hypertension (3) Gastro-Esophageal Reflux Disease Without Esophagitis (4) Hyperlipidemia, Unspecified (5) Hypothyroidism Nos (6) Tobacco Use Disorder (7) Vitamin D Deficiency, Unspecified Surgical Problems: (1) History of mastectomy Family History Unremarkable Social History Smoking Status: Former Smoker Alcohol Use: occasionally Marital Status: Occupation Status: employed Current/Historical Medications Scheduled Amoxicillin & Pot Clavulanate (Augmentin 875-125 mg), 1 TAB PO BID Aspirin (Aspirin Ec), 81 MG PO QAM Budesonide/Formoterol Fumarate (Symbicort 160/4.5 Inhaler ), 2 PUFFS INH QAM Escitalopram Oxalate (Lexapro), 20 MG PO QAM Irbesartan (Avapro), 150 MG PO QAM Levothyroxine Sodium (Levothyroxine Sodium), 1 TAB PO AM Multivitamin (Multivitamin), 1 TAB PO QAM Scheduled PRN Albuterol Hfa (Ventolin Hfa), 2 PUFFS INH Q6H PRN for PRN Tramadol (Ultram), 1-2 TAB PO Q4H PRN for Pain Physical Exam Vital Signs Date Time Temp Pulse Resp B/P (MAP) Pulse Ox O2 Delivery O2 Flow Rate FiO2 03/07/17 08:27 78 18 128/76 98 03/07/17 08:00 98 Room Air 03/07/17 07:51 36.9 84 20 152/87 95 Room Air Physical Exam CONSTITUTIONAL: Healthy and well nourished. Alert and oriented X 3 with positive affect. Patient does not appear acutely or toxic. HEENT: Normocephalic, atraumatic. Pupils equal, round and reactive. No obvious facial edema noted. The patient has tenderness to palpation and percussion of bilateral maxillary sinuses. Patient also has bulging of the TMs bilaterally without serous or purulent effusion. No rhinorrhea or mucopurulent drainage noted. OROPHARYNX: No obvious gingival erythema, postnasal drip, tonsillar hypertrophy or exudates. NECK: Full active range of motion without discomfort. RESPIRATORY: Clear to auscultation bilaterally with no wheezing, crackles, rhonchi or stridor. CARDIOVASCULAR: Regular rate and rhythm with no murmurs, rubs or gallops. INTEGUMENTARY: No rash or other significant dermatologic conditions noted. NEUROLOGIC: Facial sensations are intact. Medical Decision & Procedures ED Course Patient history and physical exam were performed. Nurse's notes were reviewed. Vital signs were reviewed and were normal. The patient will be treated with Augmentin antibiotics. She was encouraged to alternate ibuprofen and Tylenol for pain relief. She did request something else for pain, and was provided a prescription for Ultram. The patient is also complaining of some difficulty sleeping. She was encouraged to try taking Benadryl 25-50 mg at bedtime. She was encouraged to follow-up with her PCP as needed for any persistent sinus congestion or insomnia. She was instructed to return to the emergency department for any progressively worsening congestion, fever, shortness of breath or other concerning symptoms. The patient was happy with plan of care, voiced understanding of all discharge instructions, and rated her discomfort a 5 out of 10 at the conclusion of my exam. She refused any analgesics while in the emergency department. Medical Decision Impression Primary Impression: Acute sinusitis Departure Information Dispostion Home / Self-Care Prescriptions Tramadol (Ultram) 50 Mg Tab 1-2 TAB PO Q4H Y for Pain, #20 TAB For Initial Treatment Prov: Matt Aparicio PA 03/07/17 Amoxicillin & Pot Clavulanate (Augmentin 875-125 mg) 1 Tab Tab 1 TAB PO BID for 10 Days, #20 TAB Prov: Matt Aparicio PA 03/07/17 Forms HOME CARE DOCUMENTATION FORM, IMPORTANT VISIT INFORMATION Patient Instructions Sinusitis Acute, My [facility] Additional Instructions Complete all Augmentin antibiotics as prescribed. Suggest taking a probiotic as well. Use saline rinses and Sudafed as needed for additional sinus congestion relief. Ibuprofen 800 mg and/or Tylenol 1000 mg every 8 hours. You may also alternate these medications for more effective pain relief: Ibuprofen --4 HRS--> Tylenol --4 HRS--> ibuprofen --4 HRS--> Tylenol .... Ultram as prescribed and if needed for additional pain relief. Take Benadryl 25-50 mg every 6-8 hours as needed for help with sleeping. Follow-up with your family doctor in one week for recheck. Return to the emergency department for any progressively worsening symptoms or developing fever. Problem Qualifiers Primary Impression: Acute sinusitis Sinusitis location: maxillary Recurrence: non-recurrent Qualified Codes: J01.00 - Acute maxillary sinusitis, unspecified
== END 2017-03-07 08:29 | disposition home or self-care (01) ==
LOC: C.EDB 07:48
DX: J01.90 Acute sinusitis, unspecified (principal); I10 Essential (primary) hypertension; E78.5 Hyperlipidemia, unspecified; E03.9 Hypothyroidism, unspecified; K21.9 Gastro-esophageal reflux disease without esophagitis; F17.200 Nicotine dependence, unspecified, uncomplicated; Z85.3 Personal history of malignant neoplasm of breast; Z90.10 Acquired absence of unspecified breast and nipple; Z87.891 Personal history of nicotine dependence; Z79.82 Long term (current) use of aspirin; Z79.899 Other long term (current) drug therapy

== ENCOUNTER 2017-05-11 14:30 | Observation (INO) | payer OTHER ==
[~2017-05-11] VITALS: Ht 165.1 cm; Wt 72.7 kg
[~2017-05-11 14:30] MED LIST changes: -HYDR25TA4 PO; -IRBE-37 PO; +TRAM-10 PO; -VITAMIN D PO; -VNTHFA/IN INH
[2017-05-11] MEDS ORDERED: VNTHFA/IN INH (15:55)
[2017-05-11] MEDS ORDERED: IRBE-37 PO (15:56)
[2017-05-11] MEDS ORDERED: SODIUM CHLORIDE 0.9% 1000ML 1,000 ML IV STA (16:10)
[2017-05-11] MEDS ORDERED: OPTIRAY 320 IV PRN (16:30)
--- NOTE | 2017-05-11 16:30 | DIAGNOSTIC IMAGING REPORT ---
CHEST ONE VIEW PORTABLE CLINICAL HISTORY: Atypical chest pain COMPARISON STUDY: 02/03/2017 FINDINGS: There is a left-sided A-Port catheter present. The cardiac and mediastinal contours remain stable. There is no failure. There is no focal pulmonary consolidation. There are no pleural effusions.[ IMPRESSION: No active disease in the chest. Electronically signed by: Thom Cox M.D. 05/11/2017 4:29 PM Dictated Date/Time: 05/11/2017 4:28 PM
[2017-05-11 17:19] LABS: BASO % 2.4 %; EOS ABS # 0.08 K/uL (0-0.5); HEMATOCRIT 31.7 % (37-47); IG# 0.03 K/uL (0.00-0.02); LYMPH % 9.8 %; MEAN CELL VOLUME 82.3 fL (80-100); MEAN CORPUSCULAR HEMOGLOBIN 28.6 pg (25-34); MEAN CORPUSCULAR HGB CONC 34.7 g/dl (32-36); MEAN PLATELET VOLUME 10.9 fL (7.4-10.4); MONO % 5.9 %; MONO ABS # 0.24 K/uL (0.11-0.59); NEUT % 79.2 %; NEUT ABS # 3.25 K/uL (1.4-6.5); PLATELET COUNT 232 K/uL (130-400); RED CELL DISTRIBUTION WIDTH CV 17.6 % (11.5-14.5); RED CELL DISTRIBUTION WIDTH SD 52.6 fL (36.4-46.3)
[2017-05-11] MEDS ORDERED: CHOL200010 PO (17:32)
[2017-05-11] MEDS ORDERED: CALC500C3 PO (17:32)
[2017-05-11 17:43] LABS: INFLUENZA B ANTIGEN Neg for Influ B (NEG)
[2017-05-11 17:44] LABS: ALBUMIN 3.6 gm/dl (3.4-5.0); CALCIUM 8.3 mg/dl (8.5-10.1); CREATININE 0.68 mg/dl (0.60-1.20); POTASSIUM 3.9 mmol/L (3.5-5.1)
[2017-05-11 17:49] LABS: TOTAL PROTEIN 7.2 gm/dl (6.4-8.2)
--- NOTE | 2017-05-11 18:09 | DIAGNOSTIC IMAGING REPORT ---
CT ANGIOGRAM OF THE CHEST CLINICAL HISTORY: Atypical chest pain COMPARISON STUDY: Chest x-ray dated May 11, 2017 TECHNIQUE: Following the IV administration of 93 mL of Optiray-320, CT angiogram of the thorax was performed from the thoracic inlet to the lung bases utilizing the pulmonary embolus protocol. Images are reviewed in the axial, sagittal, and coronal planes. IV contrast was administered without complication. MIP imaging was performed. A dose lowering technique was utilized adhering to the principles of ALARA. CT DOSE: 279.36 mGy.cm FINDINGS: No pathologically enlarged axillary mediastinal or hilar lymph nodes were visualized. There was no evidence of thoracic aortic dilatation. There were no pulmonary artery filling defects to indicate acute pulmonary embolism. No pleural effusions are visualized. There are mild dependent atelectatic changes. There is no focal pulmonary consolidation. There are tiny apical blebs. There are postsurgical changes of a prior right mastectomy. As a left-sided A-Port catheter. IMPRESSION: 1. No acute intrathoracic findings 2. No evidence of acute pulmonary embolism 3. No evidence of focal pulmonary consolidation Electronically signed by: Thom Cox M.D. 05/11/2017 6:04 PM Dictated Date/Time: 05/11/2017 6:01 PM
--- NOTE | 2017-05-11 18:30 | DIAGNOSTIC IMAGING REPORT ---
Biliary ultrasound CLINICAL HISTORY: epigastric pain elevated liver enzymes on chemo r/o cholecystitis COMPARISON STUDY: No previous studies for comparison. FINDINGS: The pancreas appears sonographically normal. The liver appears sonographically normal. The gallbladder appears sonographically normal. There is no ductal dilatation. The common bile duct measures 5 mm. There is no right-sided hydronephrosis. IMPRESSION: Normal biliary ultrasound. Electronically signed by: Thom Cox M.D. 05/11/2017 6:28 PM Dictated Date/Time: 05/11/2017 6:28 PM
[2017-05-11] MEDS ORDERED: ASPIRIN 81 MG CHEW PO STA (21:11)
[2017-05-11] MEDS ORDERED: ALBUTEROL HFA 8 GM INHALER INH PRN (21:15)
[2017-05-11] MEDS ORDERED: CALCIUM CARBONATE 500 MG CHEWABLE PO PRN (21:15)
--- NOTE | 2017-05-11 21:20 | History and Physical ---
History & Physical Date & Time of Service: May 11, 2017 at 21:11 Chief Complaint: Stomach Pain, Burning Primary Care Physician: Eduardo Paredes M.D. History of Present Illness Source: patient, hospital records 62 y/o F Hx HTN, hypothyroid, GERD, breast CA - currently on chemo. Pt had an episode of nausea, vomiting, diaphoresis, in addition to abdominal and chest pain 2 days prior. She called her MD today to describe what had happened and was sent for labs. Her troponin was slightly elevated and she was sent to the ER for further evaluation. A second troponin was obtained in the ER which revealed an upward trend although the overall elevation is marginal. She does not have any related symptoms at the time of admission. Past Medical/Surgical History 1) HTN 2) Hypothyroidism 3) GERD 4) Breast cancer - L mastectomy 01/30 - currently treated with Taxol Family History Father due to lymphoma Mother due to lung CA Social History Smoking Status: Never Smoker Marital Status: Occupational Status: employed Allergies Coded Allergies: Fish (Verified Allergy, Unknown, FROM ALLERGY TEST, 05/11/17) Goose Feathers (Verified Allergy, Unknown, UNKNOWN, 03/07/17) Grass (Verified Allergy, Unknown, GRASS,WEEDS,,MOLD,TREES-ITCHY EYES STUFFY NOSE, 03/07/17) Montelukast (Verified Allergy, Unknown, UNKNOWN, 03/07/17) NUTS (Verified Allergy, Unknown, ALMONDS,PEANUTS,WALNUTS-RASH, 03/07/17) Rosuvastatin (Verified Allergy, Unknown, LEG CRAMPS, 03/07/17) Zoster Vaccine Live (Verified Allergy, Unknown, HIVES, 03/07/17) Venlafaxine (Verified Adverse Reaction, Mild, UNKNOWN, 03/07/17) Uncoded Allergies: FLAXSEED (Allergy, Unknown, FROM ALLERGY TEST, 05/11/17) Home Medications Scheduled Budesonide/Formoterol Fumarate (Symbicort 160/4.5 Inhaler ), 2 PUFFS INH QAM Calcium Carbonate (Tums), 1-2 TABS PO PRN UD Cholecalciferol (Vitamin D), 2,000 UNIT PO DAILY Escitalopram Oxalate (Lexapro), 20 MG PO QAM Irbesartan (Avapro), 150 MG PO QAM Levothyroxine Sodium (Levothyroxine Sodium), 1 TAB PO AM Multivitamin (Multivitamin), 1 TAB PO QAM Scheduled PRN Albuterol Hfa (Ventolin Hfa), 2 PUFFS INH Q6H PRN for PRN Review of Systems Constitutional: + problem reported (diaphoresis - with nausea), No fever, No chills, No sweats Eyes: No worsening of vision ENT: No hearing loss, No nasal symptoms Respiratory: No cough, No sputum, No wheezing Cardiovascular: + chest pain, No orthopnea, No PND Abdomen: + pain, + nausea, + vomiting, + diarrhea Musculoskeletal: No joint pain Genitourinary - Female: No dysuria, No urinary frequency, No urinary urgency Neurologic: No memory loss, No paralysis, No weakness Psychiatric: No depression symptoms Endocrine: No fatigue Hematologic / Lymphatic: No abnormal bleeding/bruising Integumentary: No rash Allergic / Immunologic: No environmental allergies Physical Exam Vital Signs Date Time Temp Pulse Resp B/P (MAP) Pulse Ox O2 Delivery O2 Flow Rate FiO2 05/11/17 19:59 84 20 133/85 98 Room Air 05/11/17 18:06 86 18 114/102 98 Room Air 05/11/17 17:05 87 05/11/17 16:57 95 Room Air 05/11/17 16:55 88 16 116/98 97 Room Air 05/11/17 14:40 36.9 97 18 143/73 97 Room Air General Appearance: WD/WN, no apparent distress Head: normocephalic Eyes: normal inspection ENT: normal ENT inspection, pharynx normal Neck: supple, thyroid normal Respiratory/Chest: chest non-tender, lungs clear, normal breath sounds Cardiovascular: regular rate, rhythm, no edema, no gallop Abdomen/GI: normal bowel sounds, non tender, soft Back: normal inspection, no CVA tenderness Extremities/Musculoskelatal: normal inspection, no calf tenderness, normal capillary refill 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, no motor/sensory deficits, alert, oriented x 3 Skin: normal color Diagnostics Laboratory Results Results Past 24 Hours Test 05/11/17 16:45 05/11/17 16:55 05/11/17 19:55 Range/Units Urine Color YELLOW Urine Appearance CLEAR CLEAR Urine pH 7.5 4.5-7.5 Urine Specific Agency 1.004 1.000-1.030 Urine Protein NEG NEG Urine Glucose (UA) NEG NEG Urine Ketones NEG NEG Urine Occult Blood NEG NEG Urine Nitrite NEG NEG Urine Bilirubin NEG NEG Urine Urobilinogen NEG NEG Urine Leukocyte Esterase NEG NEG Influenza Type A Antigen Neg for Influ A NEG Influenza Type B Antigen Neg for Influ B NEG White Blood Count 4.10 4.8-10.8 K/uL Red Blood Count 3.85 4.2-5.4 M/uL Hemoglobin 11.0 12.0-16.0 g/dL Hematocrit 31.7 37-47 % Mean Corpuscular Volume 82.3 80-100 fL Mean Corpuscular Hemoglobin 28.6 25-34 pg Mean Corpuscular Hemoglobin Concent 34.7 32-36 g/dl Platelet Count 232 130-400 K/uL Mean Platelet Volume 10.9 7.4-10.4 fL Neutrophils (%) (Auto) 79.2 % Lymphocytes (%) (Auto) 9.8 % Monocytes (%) (Auto) 5.9 % Eosinophils (%) (Auto) 2.0 % Basophils (%) (Auto) 2.4 % Neutrophils # (Auto) 3.25 1.4-6.5 K/uL Lymphocytes # (Auto) 0.40 1.2-3.4 K/uL Monocytes # (Auto) 0.24 0.11-0.59 K/uL Eosinophils # (Auto) 0.08 0-0.5 K/uL Basophils # (Auto) 0.10 0-0.2 K/uL RDW Standard Deviation 52.6 36.4-46.3 fL RDW Coefficient of Variation 17.6 11.5-14.5 % Immature Granulocyte % (Auto) 0.7 % Immature Granulocyte # (Auto) 0.03 0.00-0.02 K/uL Sodium Level 136 136-145 mmol/L Potassium Level 3.9 3.5-5.1 mmol/L Chloride Level 102 98-107 mmol/L Carbon Dioxide Level 23 21-32 mmol/L Anion Gap 11.0 3-11 mmol/L Blood Urea Nitrogen 12 7-18 mg/dl Creatinine 0.68 0.60-1.20 mg/dl Est Creatinine Clear Calc Drug Dose 86.9 ml/min Estimated GFR () 108.7 Estimated GFR (Non- 93.7 BUN/Creatinine Ratio 17.0 10-20 Random Glucose 92 70-99 mg/dl Lactic Acid Level 1.6 0.4-2.0 mmol/L Calcium Level 8.3 8.5-10.1 mg/dl Total Bilirubin 0.5 0.2-1 mg/dl Direct Bilirubin 0.1 0-0.2 mg/dl Aspartate Amino Transf (AST/SGOT) 195 15-37 U/L Alanine Aminotransferase (ALT/SGPT) 271 12-78 U/L Alkaline Phosphatase 164 45-117 U/L Troponin I 0.036 0.058 0-0.045 ng/ml Total Protein 7.2 6.4-8.2 gm/dl Albumin 3.6 3.4-5.0 gm/dl Lipase 129 73-393 U/L Microbiology Results 05/11/17 Blood Culture, Received Pending 05/11/17 Blood Culture, Received Pending Diagnostic Radiology Gallbladder US: No abnormalities CTA: No acute findings EKG NSR - inversion V1,2,5 Prior inversion in III no longer present Impression Assessment and Plan 62 y/o F Hx HTN, hypothyroid, GERD, breast CA - currently on chemo. Pt had an episode of nausea, vomiting, diaphoresis, in addition to abdominal and chest pain 2 days prior. She called her MD today to describe what had happened and was sent for labs. Her troponin was slightly elevated and she was sent to the ER for further evaluation. A second troponin was obtained in the ER which revealed an upward trend although the overall elevation is marginal. She does not have any related symptoms at the time of admission. 1) Abdominal and CP with elevated trop - serial enzymes will be obtained - a limited echo is ordered for AM - she had a normal echo 01/30 - she will receive ASA and Morphine PRN for any recurrent CP. 2) HTN - cont Irbesartan 3) Hypothyroidism - cont Synthroid 4) Breast CA - due for chemo 05/12 - will likely delay Full code - Lovenox prophylaxis Total time for this admit including review of labs, meds, imaging, records, EKG - discussion with pt and ER attending - 34 min Level of Care Telemetry Resuscitation Status FULL RESUSCITATION VTE Prophylaxis Given or contraindicated: Unfractionated heparin SQ
[2017-05-11] MEDS ORDERED: HEPARIN SOD 5000 UNIT/0.5 ML CARP ONE (21:34)
[2017-05-11] MEDS ORDERED: HEPARIN 25000 UNIT/500 ML D5W ONE (21:34)
[2017-05-11 22:05] LABS: PTT PATIENT 24.8 SECONDS (21.0-31.0)
[2017-05-11] MEDS ORDERED: ALUMINUM/MAGNESIUM/SIMETH (MAALOX MAX) 30 ML UDC PO PRN (22:30)
[2017-05-11] MEDS ORDERED: POLYETHYLENE (MIRALAX) 17 GM PACK PO PRN (22:30)
[2017-05-11] MEDS ORDERED: MoRPHine SULFATE 2 MG/ML CARP IV PRN (22:30)
[2017-05-11] MEDS ORDERED: ONDANSETRON INJ 2 MG/ML 2 ML VIAL IV PRN (22:30)
[2017-05-11] MEDS ORDERED: MAGNESIUM HYDROXIDE SUSP 30 ML UDC PO PRN (22:30)
[2017-05-11] MEDS ORDERED: ACETAMINOPHEN 325 MG TAB PO PRN (22:30)
[2017-05-11] MEDS ORDERED: IV FLUIDS COMPLETED PRN (23:00)
[2017-05-11 23:55] VITALS: BP 130/81; PULSE 73; TEMP 37.2; O2SAT 95; Ht 165.1 cm; Wt 72.7 kg
--- NOTE | 2017-05-11 23:57 | EMERGENCY ROOM VISIT NOTE ---
History Report prepared by Hector: Latanya Sauer Under the Supervision of: Dr. Fazal Douglass M.D. First contact with patient: 16:05 Chief Complaint: ABDOMINAL PAIN Stated Complaint: STOMACH PAIN, BURNING Nursing Triage Summary: pt reports some kind of spell over weekend . sweaty, pale pain in chest . went to clinic today sent here for eval. pt gets chemo. last tx last thursday History of Present Illness The patient is a 62 year old female who presents to the Emergency Room with complaints of an episode of abdominal pain 2 days ago. The patient had a burning sensation in her chest and abdomen Thursday morning. Pain was located in the epigastric area and the left chest. she was pale and diaphoretic. She vomited and then her symptoms improved. Yesterday, she had some loose bowels. She currently has some soreness in her abdomen which she thinks might be from heaving. She denies any headache, bloody stool, dark stool, hematemesis, dark vomit, hematuria, or pain with urination. She has not checked for a fever. The patient is currently undergoing weekly chemo for breast cancer. She was sent to the ED today after her lab work was abnormal. Her doctor thought that she might have esophagitis. Source of History: patient Onset: 2 days ago Position: abdomen Quality: burning Timing: other (episodic) Modifying Factors (Relieving): other (vomiting) Associated Symptoms: + diaphoresis, + chest pain, No headache, No melena, No hematochezia, No urinary symptoms Note: Pt reports paleness, loose bowels. Review of Systems See HPI for pertinent positives and negatives. A total of ten systems were reviewed and were otherwise negative. Past Medical & Surgical Medical Problems: (1) Breast cancer (2) Chest pain (3) Essential (primary) hypertension (4) Gastro-Esophageal Reflux Disease Without Esophagitis (5) Hyperlipidemia, Unspecified (6) Hypothyroidism Nos (7) Tobacco Use Disorder (8) Troponin I above reference range (9) Vitamin D Deficiency, Unspecified Surgical Problems: (1) History of mastectomy Family History No pertinent family history stated. Social History Smoking Status: Never Smoker Alcohol Use: occasionally Marital Status: Occupation Status: employed Current/Historical Medications Scheduled Budesonide/Formoterol Fumarate (Symbicort 160/4.5 Inhaler ), 2 PUFFS INH QAM Calcium Carbonate (Tums), 1-2 TABS PO PRN UD Cholecalciferol (Vitamin D), 2,000 UNIT PO DAILY Escitalopram Oxalate (Lexapro), 20 MG PO QAM Irbesartan (Avapro), 150 MG PO QAM Levothyroxine Sodium (Levothyroxine Sodium), 1 TAB PO AM Multivitamin (Multivitamin), 1 TAB PO QAM Scheduled PRN Albuterol Hfa (Ventolin Hfa), 2 PUFFS INH Q6H PRN for PRN Allergies Coded Allergies: Fish (Verified Allergy, Unknown, FROM ALLERGY TEST, 05/11/17) Goose Feathers (Verified Allergy, Unknown, UNKNOWN, 03/07/17) Grass (Verified Allergy, Unknown, GRASS,WEEDS,,MOLD,TREES-ITCHY EYES STUFFY NOSE, 03/07/17) Montelukast (Verified Allergy, Unknown, UNKNOWN, 03/07/17) NUTS (Verified Allergy, Unknown, ALMONDS,PEANUTS,WALNUTS-RASH, 03/07/17) Rosuvastatin (Verified Allergy, Unknown, LEG CRAMPS, 03/07/17) Zoster Vaccine Live (Verified Allergy, Unknown, HIVES, 03/07/17) Venlafaxine (Verified Adverse Reaction, Mild, UNKNOWN, 03/07/17) Uncoded Allergies: FLAXSEED (Allergy, Unknown, FROM ALLERGY TEST, 05/11/17) Physical Exam Vital Signs Date Time Temp Pulse Resp B/P (MAP) Pulse Ox O2 Delivery O2 Flow Rate FiO2 05/11/17 21:42 85 16 135/82 99 Room Air 05/11/17 21:03 81 05/11/17 19:59 84 20 133/85 98 Room Air 05/11/17 18:06 86 18 114/102 98 Room Air 05/11/17 17:05 87 05/11/17 16:57 95 Room Air 05/11/17 16:55 88 16 116/98 97 Room Air 05/11/17 14:40 36.9 97 18 143/73 97 Room Air Physical Exam Physical Exam GENERAL: She is oriented to person, place, and time. She appears well- developed and well-nourished. She does not appear distressed. ____ HENT: Exam performed. Head: Normocephalic and atraumatic. Right Ear: External ear normal. No mastoid tenderness. Left Ear: External ear normal. No mastoid tenderness. Mouth/Throat: The oropharynx is clear and moist. No trismus in the jaw. No dental abscesses or uvula swelling. No oropharyngeal exudate or tonsillar abscesses. ____ EYES: Conjunctivae and EOM are normal. Pupils are equal, round, and reactive to light. Right eye exhibits no discharge. Left eye exhibits no discharge. No scleral icterus. ____ NECK: Normal range of motion. Neck supple. No JVD present. No spinous process tenderness present. No carotid bruit present. No rigidity. No tracheal deviation and normal range of motion present. No Brudzinski's sign and no Kernig 's sign noted. ____ CV: Tachycardic rate, regular rhythm, normal heart sounds and intact distal pulses. There is no peripheral edema. Palpable radial pulses bue. ____ PULM/CHEST: Effort normal and breath sounds normal. No respiratory distress. No stridor. She has no wheezes. She has no rales. Chest Wall: She exhibits no tenderness. ____ ABD: The abdomen is soft. Bowel sounds are normal. She has no distension. No mass is present. There is pain on palpation of the epigastric area. There is no rebound, no guarding, no Walsh's sign and no tenderness at McBurney's point. Rovsig negative MUSC/SKEL: Normal range of motion. There is no peripheral edema, tenderness or deformity. LYMPH: No cervical adenopathy. ____ NEURO: She is alert and oriented to person, place, and time. She has normal strength. No cranial nerve deficit or sensory deficit. Coordination and gait normal. GCS eye subscore is 4. GCS verbal subscore is 5. GCS motor subscore is 6. Cerebellar tests wnl. ____ SKIN: Skin is warm and dry. She is not diaphoretic. ____ PSYCH: She has a normal mood and affect. Her behavior is normal. Judgment and thought content normal. ____ Medical Decision & Procedures ER Provider Diagnostic Interpretation: Radiology results as stated below per my review and radiologist interpretation: CHEST ONE VIEW PORTABLE CLINICAL HISTORY: Atypical chest pain COMPARISON STUDY: 02/03/2017 FINDINGS: There is a left-sided A-Port catheter present. The cardiac and mediastinal contours remain stable. There is no failure. There is no focal pulmonary consolidation. There are no pleural effusions.[ IMPRESSION: No active disease in the chest. Electronically signed by: Thom Cox M.D. 05/11/2017 4:29 PM Dictated Date/Time: 05/11/2017 4:[address] ANGIOGRAM OF THE CHEST CLINICAL HISTORY: Atypical chest pain COMPARISON STUDY: Chest x-ray dated May 11, 2017 TECHNIQUE: Following the IV administration of 93 mL of Optiray-320, CT angiogram of the thorax was performed from the thoracic inlet to the lung bases utilizing the pulmonary embolus protocol. Images are reviewed in the axial, sagittal, and coronal planes. IV contrast was administered without complication. MIP imaging was performed. A dose lowering technique was utilized adhering to the principles of ALARA. CT DOSE: 279.36 mGy.cm FINDINGS: No pathologically enlarged axillary mediastinal or hilar lymph nodes were visualized. There was no evidence of thoracic aortic dilatation. There were no pulmonary artery filling defects to indicate acute pulmonary embolism. No pleural effusions are visualized. There are mild dependent atelectatic changes. There is no focal pulmonary consolidation. There are tiny apical blebs. There are postsurgical changes of a prior right mastectomy. As a left-sided A-Port catheter. IMPRESSION: 1. No acute intrathoracic findings 2. No evidence of acute pulmonary embolism 3. No evidence of focal pulmonary consolidation Electronically signed by: Thom Cox M.D. 05/11/2017 6:04 PM Dictated Date/Time: 05/11/2017 6:01 PM Biliary ultrasound CLINICAL HISTORY: epigastric pain elevated liver enzymes on chemo r/o cholecystitis COMPARISON STUDY: No previous studies for comparison. FINDINGS: The pancreas appears sonographically normal. The liver appears sonographically normal. The gallbladder appears sonographically normal. There is no ductal dilatation. The common bile duct measures 5 mm. There is no right-sided hydronephrosis. IMPRESSION: Normal biliary ultrasound. Electronically signed by: Thom Cox M.D. 05/11/2017 6:28 PM Dictated Date/Time: 05/11/2017 6:28 PM Laboratory Results 05/11/17 16:55 Red Blood Count 3.85, Mean Corpuscular Volume 82.3, Mean Corpuscular Hemoglobin 28.6, Mean Corpuscular Hemoglobin Concent 34.7, Mean Platelet Volume 10.9, Neutrophils (%) (Auto) 79.2, Lymphocytes (%) (Auto) 9.8, Monocytes (%) (Auto) 5.9, Eosinophils (%) (Auto) 2.0, Basophils (%) (Auto) 2.4, Neutrophils # (Auto) 3.25, Lymphocytes # (Auto) 0.40, Monocytes # (Auto) 0.24, Eosinophils # (Auto) 0.08, Basophils # (Auto) 0.10 05/11/17 16:55 Test 05/11/17 16:45 05/11/17 16:55 Urine Color YELLOW Urine Appearance CLEAR (CLEAR) Urine pH 7.5 (4.5-7.5) Urine Specific [place] 1.004 (1.000-1.030) Urine Protein NEG (NEG) Urine Glucose (UA) NEG (NEG) Urine Ketones NEG (NEG) Urine Occult Blood NEG (NEG) Urine Nitrite NEG (NEG) Urine Bilirubin NEG (NEG) Urine Urobilinogen NEG (NEG) Urine Leukocyte Esterase NEG (NEG) Influenza Type A Antigen Neg for Influ A (NEG) Influenza Type B Antigen Neg for Influ B (NEG) White Blood Count 4.10 K/uL (4.8-10.8) Red Blood Count 3.85 M/uL (4.2-5.4) Hemoglobin 11.0 g/dL (12.0-16.0) Hematocrit 31.7 % (37-47) Mean Corpuscular Volume 82.3 fL (80-100) Mean Corpuscular Hemoglobin 28.6 pg (25-34) Mean Corpuscular Hemoglobin Concent 34.7 g/dl (32-36) Platelet Count 232 K/uL (130-400) Mean Platelet Volume 10.9 fL (7.4-10.4) Neutrophils (%) (Auto) 79.2 % Lymphocytes (%) (Auto) 9.8 % Monocytes (%) (Auto) 5.9 % Eosinophils (%) (Auto) 2.0 % Basophils (%) (Auto) 2.4 % Neutrophils # (Auto) 3.25 K/uL (1.4-6.5) Lymphocytes # (Auto) 0.40 K/uL (1.2-3.4) Monocytes # (Auto) 0.24 K/uL (0.11-0.59) Eosinophils # (Auto) 0.08 K/uL (0-0.5) Basophils # (Auto) 0.10 K/uL (0-0.2) RDW Standard Deviation 52.6 fL (36.4-46.3) RDW Coefficient of Variation 17.6 % (11.5-14.5) Immature Granulocyte % (Auto) 0.7 % Immature Granulocyte # (Auto) 0.03 K/uL (0.00-0.02) Prothrombin Time 10.6 SECONDS (9.0-12.0) Prothromb Time International Ratio 1.0 (0.9-1.1) Activated Partial Thromboplast Time 24.8 SECONDS (21.0-31.0) Partial Thromboplastin Ratio 1.0 Anion Gap 11.0 mmol/L (3-11) Est Creatinine Clear Calc Drug Dose 86.9 ml/min Estimated GFR () 108.7 Estimated GFR (Non- 93.7 BUN/Creatinine Ratio 17.0 (10-20) Lactic Acid Level 1.6 mmol/L (0.4-2.0) Calcium Level 8.3 mg/dl (8.5-10.1) Total Bilirubin 0.5 mg/dl (0.2-1) Direct Bilirubin 0.1 mg/dl (0-0.2) Aspartate Amino Transf (AST/SGOT) 195 U/L (15-37) Alanine Aminotransferase (ALT/SGPT) 271 U/L (12-78) Alkaline Phosphatase 164 U/L (45-117) Total Protein 7.2 gm/dl (6.4-8.2) Albumin 3.6 gm/dl (3.4-5.0) Lipase 129 U/L (73-393) Laboratory results reviewed by me Medications Administered Medications (Trade) Dose Ordered Sig/Moses Route Start Time Stop Time Status Last Admin Dose Admin Sodium Chloride 1,000 ml @ 125 mls/hr Q8H STAT IV 05/11/17 16:10 05/11/17 23:56 DC 05/11/17 18:06 125 MLS/HR Aspirin (Aspirin Chew) 324 mg NOW STAT PO 05/11/17 21:11 05/11/17 21:12 DC 05/11/17 21:38 324 MG Heparin Sodium/ Dextrose 1 ea NOW STAT N/A 05/11/17 21:15 05/11/17 21:17 DC 05/11/17 21:15 1 EA Heparin Sodium/ Dextrose (Heparin 25,000 Unit/500ml D5W) 25,000 unit STK-MED ONCE .ROUTE 05/11/17 21:34 05/11/17 21:35 DC 05/11/17 21:47 25,000 UNIT Heparin Sodium (Porcine) (Heparin Sq 5000 Unit/0.5ml) 5,000 unit STK-MED ONCE .ROUTE 05/11/17 21:34 05/11/17 21:35 DC 05/11/17 21:46 5,000 UNIT ECG Per My Interpretation Indication: chest pain Rate (beats per minute): 81 Rhythm: sinus rhythm Findings: other (NM, QRS, QTc wnl, no ST elevation or ST depression) ED Course 160: The patient was evaluated in room B2. A complete history and physical exam was performed. EMR reviewed. Pt had labs drawn today at 0925 which shows stable hemoglobin, no leukocytosis. She had elevated AST at 306, ALT at 214, alk phos at 140. 1905: CBC within normal limits. Hepatic panel shows an AST of 195, ALT of 271 alkaline phosphatase 164. Troponin 0 0.036. CTA of chest and ultrasound of the right upper quadrant within normal limits. I discussed the patient's case with Dr. Paz, [facility], stone gluer for Dr. Hanson. He agrees if repeat troponin is not trending up she can be discharged to follow up tomorrow. Pt in agreement with plan. Will repeat trop. 2051: Repeat EKG at this time per my interpretation shows sinus rhythm, rate 71 , NM QRS and QTc wnl, no acute change from EKG at 1656. Repeat troponin is elevated at 0.058. 2099: [place]. Nathan, [facility]. 2110: I spoke with Dr. Paz again. He states he does not know of any particular effect on troponin of the patient's chemotherapy regimen of Adriamycin, Cytoxan , Taxol. Given Adriamycin can cause dilated cardiomyopathy, he has no objection to treating as an NSTEMI with heparin. He agrees he will be on consult when the patient is admitted. 2119: I discussed with the patient and family at bedside and they agree with staying and heparin. Bedside POC cardiac US xyphoid, apical, parasternal short and parasternal long views obtained shows trace pericardial effusion, no pericardial tamponade. Pt reports no chest pain at this time. Will begin heparin drip and hold off on nitro drip. 2200: I discussed the patient's case with Dr. Lopes [facility] [place]. He agrees with the plan to begin heparin and states given troponin elevated in 3 hour by that much we need to presume NSTEMI. He agrees with no nitro at this time given pt is chest pain free. Medical Decision 1905: CBC within normal limits. Hepatic panel shows an AST of 195, ALT of 271 alkaline phosphatase 164. Troponin 0 0.036. CTA of chest and ultrasound of the right upper quadrant within normal limits. I discussed the patient's case with Dr. Paz, [facility], stone gluer for Dr. Hanson. He agrees if repeat troponin is not trending up she can be discharged to follow up tomorrow. Pt in agreement with plan. Will repeat trop. 2051: Repeat EKG at this time per my interpretation shows sinus rhythm, rate 71 , NM QRS and QTc wnl, no acute change from EKG at 1656. Repeat troponin is elevated at 0.058. 2099: Dr. Nathan, [facility] [place] was notified. 2110: I spoke with Dr. Paz again. He states he does not know of any particular effect on troponin of the patient's chemotherapy regimen of Adriamycin, Cytoxan , Taxol. Given Adriamycin can cause dilated cardiomyopathy, he has no objection to treating as an NSTEMI with heparin. He agrees he will be on consult when the patient is admitted. 2119: I discussed with the patient and family at bedside and they agree with staying and heparin. Bedside POC cardiac US xyphoid, apical, parasternal short and parasternal long views obtained shows trace pericardial effusion, no pericardial tamponade. Pt reports no chest pain at this time. Will begin heparin drip and hold off on nitro drip. 2200: I discussed the patient's case with Dr. Lopes [facility] [place]. He agrees with the plan to begin heparin and states given troponin elevated in 3 hour by that much we need to presume NSTEMI. He agrees with no nitro at this time given pt is chest pain free. Medication Reconcilliation Current Medication List: was personally reviewed by me Blood Pressure Screening Patient's blood pressure: Normal blood pressure Blood pressure disposition: Did not require urgent referral Consults Time Called: 1899 Consulting Physician: Dr. Paz, [facility] Returned Call: 1905 I discussed the patient's case with him, stone gluer for Dr. Hansno. He agrees if repeat troponin is not trending up she can be discharged to follow up tomorrow. Pt in agreement with plan. Will repeat trop. Additional Consults: Time Called: 2099 Consulted Physician: Dr. Nathan, [facility] [place] Additional Comments: He was notified. Time Called: 2099 Consulted Physician: Dr. Lopes [facility] [place] Returned Call: 2200 Additional Comments: I discussed the patient's case with him. He agrees with the plan to begin heparin and states given troponin elevated in 3 hour by that much we need to presume NSTEMI. He agrees with no nitro at this time given pt is chest pain free. Impression Primary Impression: NSTEMI (non-ST elevated myocardial infarction) Critical Care I have personally spent greater than 76 minutes of critical care time in the direct management of this patient. This includes bedside care, interpretation of diagnostic studies, and testing, discussion with consultants, patient, and family members, and other required patient management activities. This 76 minutes is in excess of all separately billable procedures. Scribe Attestation The scribe's documentation has been prepared under my direction and personally reviewed by me in its entirety. I confirm that the note above accurately reflects all work, treatment, procedures, and medical decision making performed by me. The chart was completed utilizing [employer] Speech voice recognition software. Grammatical errors, random word insertions, pronoun errors, and incomplete sentences are an occasional consequence of this system due to software limitations, ambient noise, and hardware issues. Any formal questions or concerns about the content, text, or information contained within the body of this dictation should be directly addressed to the physician for clarification. Departure Information Dispostion Being Evaluated By Hospitalist Referrals Eduardo Paredes M.D. (PCP) Patient Instructions My [facility]
[2017-05-12] MEDS: D5NSS + 20MEQ KCL 1,000 ML IV SCH ×2 (00:30)
[2017-05-12 03:54] VITALS: BP 111/73; PULSE 68; TEMP 36.9; O2SAT 98
[2017-05-12 04:00] VITALS: O2SAT 98
[2017-05-12] MEDS ORDERED: LEVOTHYROXINE 112 MCG TAB PO SCH (06:00)
[2017-05-12] MEDS ORDERED: ENOXAPARIN 40 MG/0.4 ML SYR SC SCH (06:00)
[2017-05-12 08:05] VITALS: BP 128/75; PULSE 77; TEMP 37; O2SAT 96
[2017-05-12] MEDS ORDERED: ESCITALOPRAM OXALATE 20 MG TAB PO SCH (09:00)
[2017-05-12] MEDS ORDERED: BUDESONIDE/FORMOTEROL FUMARATE 160/4.5 60 PUFFS/INHALER INH SCH (09:00)
[2017-05-12] MEDS ORDERED: IRBESARTAN 150 MG TAB PO SCH (09:00)
[2017-05-12] MEDS ORDERED: CHOLECALCIFEROL 1000 INTER.UNIT TAB PO SCH (09:00)
[2017-05-12 11:41] VITALS: BP 123/76; PULSE 77; TEMP 37.1; O2SAT 97
--- NOTE | 2017-05-12 12:29 | Cardiology Consultation ---
Cardiology Consultation Date of Consultation: May 12, 2017. Requesting Physician: Dr. Marie Reason for Consultation: Elevated troponin Pt evaluation today including: conversation w/ patient, conversation w/ family , physical exam, lab review, review of studies, review of inpatient medication list, conversation w/ attending History of Present Illness This is a 62-year-old woman who has a history of hypertension and breast cancer. As far as I know she has no cardiac history, she did have an echocardiogram performed in January 2017 which was normal. She is currently undergoing chemotherapy for breast cancer. On May 09, 2017 she had epigastric and lower abdominal discomfort which radiated up into her chest, it was fairly severe burning sensation and was associated with vomiting. She was apparently pale and diaphoretic. This resolved after several hours, and then on May 10, 2017 she felt well however on May 11, 2017 she was having some of her epigastric and lower abdominal discomfort but no chest discomfort and no further vomiting. She had an appointment with her oncologist, they did some blood tests showing elevated liver function test and she was sent to the emergency room. In the emergency room her initial troponin was negative at 0.036, however the subsequent 3 troponins were elevated in the descending manner (0.058, 0.053 and then 0.048). Her electrocardiogram was unremarkable. At the time of my evaluation today she was pain-free, had no significant abdominal pain and was hungry. She does not recall having these type of symptoms before and does not have exertional discomfort. She does not have peripheral edema and has not had lightheadedness or dizziness. Past Medical/Surgical History (1) Breast cancer (2) Essential (primary) hypertension (3) Hypothyroidism Nos (4) Hyperlipidemia, Unspecified (5) Tobacco Use Disorder Social History Smoking Status: Never Smoker History of Alcohol Use: Yes (1-2/ month) Review of Systems Constitutional: No fever, No weight loss, No weakness Respiratory: No cough, No wheezing, No shortness of breath, No dyspnea on exertion Cardiac: + see HPI, + chest pain, No orthopnea, No PND, No edema, No palpitations Abdomen: + see HPI, + pain, + nausea, + vomiting, No diarrhea, No GI bleeding Female : No problem reported Neurologic: No paralysis, No weakness, No numbness/tingling, No balance problems Heme: No abnormal bleeding/bruising, No clotting problems Endo: No fatigue Skin: No problem reported All Other Systems: Reviewed and Negative Allergies Coded Allergies: Fish (Verified Allergy, Unknown, FROM ALLERGY TEST, 05/11/17) Goose Feathers (Verified Allergy, Unknown, UNKNOWN, 03/07/17) Grass (Verified Allergy, Unknown, GRASS,WEEDS,,MOLD,TREES-ITCHY EYES STUFFY NOSE, 03/07/17) Montelukast (Verified Allergy, Unknown, UNKNOWN, 03/07/17) NUTS (Verified Allergy, Unknown, ALMONDS,PEANUTS,WALNUTS-RASH, 03/07/17) Rosuvastatin (Verified Allergy, Unknown, LEG CRAMPS, 03/07/17) Zoster Vaccine Live (Verified Allergy, Unknown, HIVES, 03/07/17) Venlafaxine (Verified Adverse Reaction, Mild, UNKNOWN, 03/07/17) Uncoded Allergies: FLAXSEED (Allergy, Unknown, FROM ALLERGY TEST, 05/11/17) Medications Current Inpatient Medications Medications (Trade) Dose Ordered Sig/Moses Route Start Time Stop Time Status Last Admin Dose Admin Ioversol (Optiray 320) 100 ml UD PRN IV 05/11/17 16:30 05/15/17 16:29 Albuterol (Ventolin Hfa Inhaler) 2 puffs Q6H PRN INH 05/11/17 21:15 06/10/17 21:14 Budesonide/ Formoterol Fumarate (Symbicort 160/ 4.5 Inh) 2 puffs QAM INH 05/12/17 09:00 06/11/17 08:59 05/12/17 08:10 2 PUFFS Calcium Carbonate (Tums Chew Tab) 500 mg Q8H PRN PO 05/11/17 21:15 06/10/17 21:14 Escitalopram Oxalate (Lexapro Tab) 20 mg QAM PO 05/12/17 09:00 06/11/17 08:59 05/12/17 08:08 20 MG Irbesartan (Avapro Tab) 150 mg QAM PO 05/12/17 09:00 06/11/17 08:59 05/12/17 08:09 150 MG Levothyroxine Sodium (Synthroid Tab) 112 mcg DAILYBB PO 05/12/17 06:00 06/11/17 05:59 05/12/17 06:16 112 MCG Cholecalciferol (Vitamin D Tab) 2,000 inter.unit DAILY PO 05/12/17 09:00 06/11/17 08:59 05/12/17 08:09 2,000 INTER.UNIT Enoxaparin Sodium (Lovenox Inj) 40 mg Q24H SC 05/12/17 06:00 06/11/17 05:59 05/12/17 06:18 40 MG Acetaminophen (Tylenol Tab) 650 mg Q4H PRN PO 05/11/17 22:30 06/10/17 22:29 Al Hydrox/Mg Hydrox/Simethicone (Maalox Max Susp) 15 ml Q4H PRN PO 05/11/17 22:30 06/10/17 22:29 Magnesium Hydroxide (Milk Of Magnesia Susp) 30 ml Q12H PRN PO 05/11/17 22:30 06/10/17 22:29 Ondansetron HCl (Zofran Inj) 4 mg Q6H PRN IV 05/11/17 22:30 06/10/17 22:29 Morphine Sulfate (MoRPHine SULFATE INJ) 2 mg Q30M PRN IV 05/11/17 22:30 05/25/17 22:29 Polyethylene (Miralax Powder Packet) 17 gm DAILY PRN PO 05/11/17 22:30 06/10/17 22:29 Miscellaneous (Iv Fluids Completed) 1 ea PRN PRN N/A 05/11/17 23:00 05/11/18 22:59 Heparin Sodium (Porcine) (Heparin 100 Unit/ml 5ml Flush) 5 ml PRN PRN IV 05/12/17 01:45 06/11/17 01:44 Physical Exam Vital Signs Past 12 Hours Date Time Temp Pulse Resp B/P (MAP) Pulse Ox O2 Delivery O2 Flow Rate FiO2 05/12/17 08:05 37.0 77 16 128/75 (92) 96 Room Air 05/12/17 04:00 98 Room Air 05/12/17 03:54 36.9 68 15 111/73 (86) 98 Room Air 05/11/17 23:55 37.2 73 16 130/81 95 Room Air Constitutional: General Apperance: heathly-appearing Level of Distress: NAD Psychiatric: Mental Status: active & alert Head: normocephalic Eyes: EOM: EOMI ENMT: normal ENT inspection, hearing grossly normal Neck: supple, no masses Lungs: Respiratory effort: no dyspnea, good air movement Auscultation: breath sounds normal, no wheezing Cardiovascular: Heart Auscultation: RRR, no murmurs, no rubs, no gallops Peripheral Pulses: Bruits: none appreciated Abdomen: Bowel Sounds: normal Inspection & Palpation: soft, no tenderness, guarding & rebound, no masses Musculoskeletal: normal strength (5/5 throughout) Extremities: no edema Neurologic: Cranial Nerves: grossly intact Sensation: grossly intact Data Laboratory Results: Last 24 Hours Test 05/11/17 16:45 05/11/17 16:55 05/11/17 19:55 05/11/17 23:08 Urine Color YELLOW Urine Appearance CLEAR Urine pH 7.5 Urine Specific [place] 1.004 Urine Protein NEG Urine Glucose (UA) NEG Urine Ketones NEG Urine Occult Blood NEG Urine Nitrite NEG Urine Bilirubin NEG Urine Urobilinogen NEG Urine Leukocyte Esterase NEG Influenza Type A Antigen Neg for Influ A Influenza Type B Antigen Neg for Influ B White Blood Count 4.10 K/uL Red Blood Count 3.85 M/uL Hemoglobin 11.0 g/dL Hematocrit 31.7 % Mean Corpuscular Volume 82.3 fL Mean Corpuscular Hemoglobin 28.6 pg Mean Corpuscular Hemoglobin Concent 34.7 g/dl Platelet Count 232 K/uL Mean Platelet Volume 10.9 fL Neutrophils (%) (Auto) 79.2 % Lymphocytes (%) (Auto) 9.8 % Monocytes (%) (Auto) 5.9 % Eosinophils (%) (Auto) 2.0 % Basophils (%) (Auto) 2.4 % Neutrophils # (Auto) 3.25 K/uL Lymphocytes # (Auto) 0.40 K/uL Monocytes # (Auto) 0.24 K/uL Eosinophils # (Auto) 0.08 K/uL Basophils # (Auto) 0.10 K/uL RDW Standard Deviation 52.6 fL RDW Coefficient of Variation 17.6 % Immature Granulocyte % (Auto) 0.7 % Immature Granulocyte # (Auto) 0.03 K/uL Prothrombin Time 10.6 SECONDS Prothromb Time International Ratio 1.0 Activated Partial Thromboplast Time 24.8 SECONDS Partial Thromboplastin Ratio 1.0 Sodium Level 136 mmol/L Potassium Level 3.9 mmol/L Chloride Level 102 mmol/L Carbon Dioxide Level 23 mmol/L Anion Gap 11.0 mmol/L Blood Urea Nitrogen 12 mg/dl Creatinine 0.68 mg/dl Est Creatinine Clear Calc Drug Dose 86.9 ml/min Estimated GFR () 108.7 Estimated GFR (Non- 93.7 BUN/Creatinine Ratio 17.0 Random Glucose 92 mg/dl Lactic Acid Level 1.6 mmol/L Calcium Level 8.3 mg/dl Total Bilirubin 0.5 mg/dl Direct Bilirubin 0.1 mg/dl Aspartate Amino Transf (AST/SGOT) 195 U/L Alanine Aminotransferase (ALT/SGPT) 271 U/L Alkaline Phosphatase 164 U/L Troponin I 0.036 ng/ml 0.058 ng/ml 0.053 ng/ml Total Protein 7.2 gm/dl Albumin 3.6 gm/dl Lipase 129 U/L Test 05/12/17 05:05 Troponin I 0.048 ng/ml Imaging: On arrival chest x-ray is unremarkable, pulmonary emboli were not identified on CT scanning and gallbladder ultrasound was unremarkable EKG: On arrival sinus rhythm, no acute abnormality. Subsequent electrocardiograms similar. Telemetry reviewed: Sinus rhythm, no significant abnormality Assessment & Plan 1. Abdominal and chest discomfort: Although atypical for coronary artery disease and occurring some days ago it is conceivable that this was due to myocardial ischemia. There are no associated electrocardiographic findings although the cardiac enzymes are borderline elevated for no clear reason. I suspect it is not an ischemic event but it is conceivable. I do not know if the elevated liver enzymes have been explained either. 2. Elevated troponin: The pattern is unusual, if they were elevated due to the episode which happened 3 days before admission it would be unlikely that the first test done the emergency room was negative unless this is an error. The descending pattern suggests some event around the time of presentation, but her symptoms do not appear to have been present then. Without an explanation for the elevated enzymes but no evidence of an acute infarction I think a stress test is reasonable. I would recommend doing that today. Thank you for allowing me to participate in her care.
--- NOTE | 2017-05-12 13:50 | ECHOCARDIOGRAM REPORT ---
*NOTICE TO RECEIVING REPUBLICAN AGENCY This information is strictly Confidential and protected under [place] law. [place] law prohibits you from making any further disclosure of this information unless further disclosure is expressly permitted by the written consent of the person to whom it pertains or is authorized by law. A general authorization for the release of medical or other information is not sufficient for this purpose. Hospital accepts no responsibility if the information is made available to any other person, INCLUDING THE PATIENT. Interpretation Summary * Name: MOLINA FRANK Study Date: 05/12/2017 07:18 AM BP: 111/73 mmHg * Patient Location: 221 HR: 68 * : 1955 (M/d/yyyy) Gender: Female Height: 65 in * Age: 62 yrs Ethnicity: CA Weight: 165 lb * Ordering Physician: Mohan Nathan * Referring Physician: Self, Referred * Performed By: Alysa Pruett RDCS * * Reason For Study: WALL MOTION ABNORMALITY * BSA: 1.8 m2 * -- Conclusions -- * There is borderline concentric left ventricular hypertrophy. * Left ventricular systolic function is normal. * There are regional wall motion abnormalities as specified. * There is mild mitral regurgitation. * Right ventricular systolic pressure is normal. * A compared to study performed on 02/02/2017, there does appear to be a subtle change in the apical lateral wall motion. There is also evidence of mitral regurgitation. Procedure Details * A complete two-dimensional transthoracic echocardiogram was performed (2D, M-mode, Doppler and color flow Doppler). Left Ventricle * The left ventricle is normal in size. * There is borderline concentric left ventricular hypertrophy. * Ejection Fraction = 60-65%. * Left ventricular systolic function is normal. * There are regional wall motion abnormalities as specified. * There appears to be mild hypokinesis involving the distal lateral wall in several views. Right Ventricle * The right ventricle is normal in size and function. * The right ventricular systolic function is normal as assessed by tricuspid annular plane systolic excursion (TAPSE) (normal >1.5 cm). Atria * The left atrial size is normal. * Right atrial size is normal. Mitral Valve * The mitral valve anatomy is normal. * There is mild mitral regurgitation. Tricuspid Valve * The tricuspid valve is not well visualized, but is grossly normal. * There is mild tricuspid regurgitation. * Right ventricular systolic pressure is normal. Aortic Valve * The aortic valve is normal in structure and function. * The aortic valve is trileaflet. * No hemodynamically significant valvular aortic stenosis. * There is no significant aortic regurgitation. Great Vessels * The aortic root is normal size. Pericardium/Pleural * There is no pericardial effusion. MMode 2D Measurements and Calculations IVSd 0.98 cm IVSs 1.3 cm LVIDd 4.6 cm LVIDs 3.1 cm LVPWd 1.2 cm LVPWs 1.5 cm IVS/LVPW 0.79 FS 32.5 % EDV(Teich) 98.9 ml ESV(Teich) 38.7 ml EF(Teich) 60.9 % EDV(cubed) 99.3 ml ESV(cubed) 30.5 ml EF(cubed) 69.3 % % IVS thick 35.7 % % LVPW thick 22.7 % LV mass(C)d 187.2 grams LV mass(C)dI 102.7 grams/m\S\2 LV mass(C)s 154.5 grams LV mass(C)sI 84.8 grams/m\S\2 SV(Teich) 60.2 ml SI(Teich) 33.0 ml/m\S\2 SV(cubed) 68.8 ml SI(cubed) 37.7 ml/m\S\2 Ao root diam 3.4 cm Ao root area 8.8 cm\S\2 LA dimension 3.4 cm LA/Ao 1.0 LVAd ap4 27.0 cm\S\2 LVLd ap4 7.9 cm EDV(MOD-sp4) 75.1 ml EDV(sp4-el) 78.0 ml LVAs ap4 14.4 cm\S\2 LVLs ap4 6.2 cm ESV(MOD-sp4) 29.4 ml ESV(sp4-el) 28.2 ml EF(MOD-sp4) 60.9 % EF(sp4-el) 63.9 % LVAd ap2 29.1 cm\S\2 LVLd ap2 7.8 cm EDV(MOD-sp2) 93.0 ml EDV(sp2-el) 92.5 ml LVAs ap2 16.0 cm\S\2 LVLs ap2 6.7 cm ESV(MOD-sp2) 32.7 ml ESV(sp2-el) 32.4 ml EF(MOD-sp2) 64.8 % EF(sp2-el) 64.9 % LVLd %diff -1.67 % EDV(MOD-bp) 83.7 ml LVLs %diff 7.3 % ESV(MOD-bp) 31.7 ml EF(MOD-bp) 62.1 % SV(MOD-sp4) 45.7 ml SI(MOD-sp4) 25.1 ml/m\S\2 SV(MOD-sp2) 60.3 ml SI(MOD-sp2) 33.1 ml/m\S\2 SV(MOD-bp) 52.0 ml SI(MOD-bp) 28.5 ml/m\S\2 SV(sp4-el) 49.9 ml SI(sp4-el) 27.4 ml/m\S\2 SV(sp2-el) 60.1 ml SI(sp2-el) 33.0 ml/m\S\2 Doppler Measurements and Calculations MV E max tonny 96.0 cm/sec MV A max tonny 87.9 cm/sec MV E/A 1.1 MV dec time 0.25 sec Ao V2 max 149.5 cm/sec Ao max PG 8.9 mmHg Ao max PG (full) 5.2 mmHg LV V1 max PG 3.7 mmHg LV V1 max 96.6 cm/sec TR max tonny 233.7 cm/sec
--- NOTE | 2017-05-12 14:19 | Hospitalist Progress Note ---
Hospitalist Progress Note Date of Service May 12, 2017. (Lakisha Michelle PA-C) Subjective Pt evaluation today including: conversation w/ patient, physical exam, chart review, lab review, review of studies, conversation w/ direct response consultant Pain: None PO Intake: Ate breakfast without difficulty Voiding: no voiding problems The patient was seen and examined this morning. Pt reports doing ok. She reports feeling anxious this morning and feels that everything always comes at once for her. She reports that she initially had substernal chest pain along with nausea and vomiting 2, with subsequent dry heaving which started on Thursday afternoon. She denies any radiation of pain or shortness of breath. She continued to feel ill throughout Thursday night, and then on Thursday also felt she was not quite herself. On Thursday the patient presented for routine appointment at the cancer care center and had elevated LFTs so was sent over to the emergency department. There was no troponin drawn with routine labs in the cancer [place] per EMR. With the slight elevation in troponins, 2D echo ordered and does show wall motion abnormalities. A stress echo has been ordered for this afternoon per Dr. Maria Additional Comments: Constitutional: No fever, sweats or chills Eyes: No diplopia, no worsening or blurred vision ENT: normal hearing, no trouble swallowing Respiratory: No cough, sputum, dyspnea at rest or on exertion Cardiovascular: No chest pain, tightness or palpitations Abdomen: No pain, nausea, vomiting, diarrhea or constipation Musculoskeletal: No joint pain, calf pain, swelling Neurologic: No weakness, numbness/tingling, or balance problems Psychiatric: No anxiety or depression Skin: No rash or itch (Lakisha Michelle PA-C) Objective Vital Signs Date Time Temp Pulse Resp B/P (MAP) Pulse Ox O2 Delivery O2 Flow Rate FiO2 05/12/17 11:41 37.1 77 16 123/76 (92) 97 Room Air 05/12/17 08:05 37.0 77 16 128/75 (92) 96 Room Air 05/12/17 04:00 98 Room Air 05/12/17 03:54 36.9 68 15 111/73 (86) 98 Room Air 05/11/17 23:55 37.2 73 16 130/81 95 Room Air 05/11/17 21:42 85 16 135/82 99 Room Air 05/11/17 21:03 81 05/11/17 19:59 84 20 133/85 98 Room Air 05/11/17 18:06 86 18 114/102 98 Room Air 05/11/17 17:05 87 05/11/17 16:57 95 Room Air 05/11/17 16:55 88 16 116/98 97 Room Air 05/11/17 14:40 36.9 97 18 143/73 97 Room Air (Lakisha Michelle PA-C) Physical Exam Notes: General: awake, alert, no apparent distress Head: Normocephalic, atraumatic, + alopecia due to chemotherapy ENT: PERRL, EOMI, no pharyngeal exudate, mucous membranes moist Chest: Chest nontender to palpation, Clear to auscultation, on room air, no adventitious breath sounds Cardiac: Regular rate and rhythm, + soft systolic murmur, no JVD, normal peripheral pulses, good capillary refill Abdominal: NABS x 4 quadrants, soft, nontender to palpation, no rebound, guarding or tenderness Extremities: Normal inspection, no peripheral edema or erythema, calfs nontender to palpation Psych: Normal mood and affect, slightly anxious at times Neuro: AAO x 3, strength intact bilaterally and related 5/5, no motor deficits, speech is clear, no peripheral sensory deficits (Lakisha Michelle, ZOË-C) Laboratory Results Last 24 Hours Test 05/11/17 16:45 05/11/17 16:55 05/11/17 19:55 05/11/17 23:08 Urine Color YELLOW Urine Appearance CLEAR Urine pH 7.5 Urine Specific [place] 1.004 Urine Protein NEG Urine Glucose (UA) NEG Urine Ketones NEG Urine Occult Blood NEG Urine Nitrite NEG Urine Bilirubin NEG Urine Urobilinogen NEG Urine Leukocyte Esterase NEG Influenza Type A Antigen Neg for Influ A Influenza Type B Antigen Neg for Influ B White Blood Count 4.10 K/uL Red Blood Count 3.85 M/uL Hemoglobin 11.0 g/dL Hematocrit 31.7 % Mean Corpuscular Volume 82.3 fL Mean Corpuscular Hemoglobin 28.6 pg Mean Corpuscular Hemoglobin Concent 34.7 g/dl Platelet Count 232 K/uL Mean Platelet Volume 10.9 fL Neutrophils (%) (Auto) 79.2 % Lymphocytes (%) (Auto) 9.8 % Monocytes (%) (Auto) 5.9 % Eosinophils (%) (Auto) 2.0 % Basophils (%) (Auto) 2.4 % Neutrophils # (Auto) 3.25 K/uL Lymphocytes # (Auto) 0.40 K/uL Monocytes # (Auto) 0.24 K/uL Eosinophils # (Auto) 0.08 K/uL Basophils # (Auto) 0.10 K/uL RDW Standard Deviation 52.6 fL RDW Coefficient of Variation 17.6 % Immature Granulocyte % (Auto) 0.7 % Immature Granulocyte # (Auto) 0.03 K/uL Prothrombin Time 10.6 SECONDS Prothromb Time International Ratio 1.0 Activated Partial Thromboplast Time 24.8 SECONDS Partial Thromboplastin Ratio 1.0 Sodium Level 136 mmol/L Potassium Level 3.9 mmol/L Chloride Level 102 mmol/L Carbon Dioxide Level 23 mmol/L Anion Gap 11.0 mmol/L Blood Urea Nitrogen 12 mg/dl Creatinine 0.68 mg/dl Est Creatinine Clear Calc Drug Dose 86.9 ml/min Estimated GFR () 108.7 Estimated GFR (Non- 93.7 BUN/Creatinine Ratio 17.0 Random Glucose 92 mg/dl Lactic Acid Level 1.6 mmol/L Calcium Level 8.3 mg/dl Total Bilirubin 0.5 mg/dl Direct Bilirubin 0.1 mg/dl Aspartate Amino Transf (AST/SGOT) 195 U/L Alanine Aminotransferase (ALT/SGPT) 271 U/L Alkaline Phosphatase 164 U/L Troponin I 0.036 ng/ml 0.058 ng/ml 0.053 ng/ml Total Protein 7.2 gm/dl Albumin 3.6 gm/dl Lipase 129 U/L Test 05/12/17 05:05 Troponin I 0.048 ng/ml (Lakisha Michelle PA-C) Assessment and Plan 62 y/o F Hx HTN, hypothyroidism, GERD, breast CA - currently on chemo, remote smoking hx x 25 years 1 ppd. Pt had an episode of nausea, vomiting, diaphoresis, in addition to abdominal and chest pain 2 days prior to admission on 05/11. Atypical chest pain with associated nausea/vomiting - ? NSTEMI - Initial troponin 0.036, 0.058, 0.053, 0.048 - upward then downward trend with serial troponins. At this time the patient is asymptomatic. - EKG reviewed and negative for ST wave inversions/signs of ischemia - Echo completed: * -- Conclusions -- * There is borderline concentric left ventricular hypertrophy. * Left ventricular systolic function is normal. * There are regional wall motion abnormalities as specified. * There is mild mitral regurgitation. * Right ventricular systolic pressure is normal. * A compared to study performed on 02/02/2017, there does appear to be a subtle change in the apical lateral wall motion. There is also evidence of mitral regurgitation. - Discussion held with Dr. Maria this morning - will obtain a stress test this afternoon. - continue on ASA and Morphine PRN for any recurrent CP. - Cholesterol is borderline at 203 - Pt has remote smoking hx of 25 years 1ppd but quit a long time ago. 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 Follows with Dr. Hanson as an outpatient. Elevated Transaminases - LFTs being trended - AST improved, ALT remains stable, Alk phos elevated, and lactate dehydrogenase also elevated. Appears her levels have been somewhat elevated since January, so possibly a slight adverse reaction to chemotherapy. Total and direct bili are WNL. - Will need to be monitored as an out pt if pt is discharged Full code - Lovenox prophylaxis Disposition: From home, lives with , pending stress treadmill echo, possible discharge within 24 hrs. (Lakisha Michelle, SHANICE) Supervising Note Dr. Marie I performed a history and physical examination on the patient. I reviewed above note and agree with it. I discussed plan with APC and patient. During my face to face encounter with the patient, I answered all of the patient's questions. (Guillermo Marie M.D.)
--- NOTE | 2017-05-12 14:53 | Discharge Instructions ---
Discharge Instructions Date of Service May 12, 2017. Admission Reason for Admission: Chest Pain,Troponin I Above Reference Range Discharge Discharge Diagnosis / Problem: Chest pain Discharge Goals Goal(s): Decrease discomfort, Improve function, Increase independence, Improve disease control Activity Recommendations Activity Limitations: resume your previous activity Lifting Limitations: no more than 25 pounds, gradually increase as tolerated Exercise/Sports Limitations: rest today, gradually increase as tolerated May Resume Sexual Activity: when tolerated Shower/Bathe: no limitations Driving or Machine Use: no limitations . Instructions / Follow-Up Instructions / Follow-Up You were admitted to [facility] with chest pain and diagnosed with atypical chest pain with associate nausea/vomiting due to acute GI illness. During your stay here you were treated with intravenous fluids and supportive care Cardiac enzymes (troponin) were trended during your admission and showed a minimal elevated, which then trended back downward. This was not typical of a cardiac event ( ie. heart attack) You were evaluated by Cardiology, and their team has determined you did not have a cardiac event. Imaging studies which were completed include: 2D Echocardiogram, and were abnormal showing slight wall motion abnormalities. A Stress treadmill echocardiogram was completed and showed slight EKG changes however this was nonconclusive. The movement of your heart rodriguez and valves were working appropriately. There was no damage done to the heart itself. Medications: Continue taking your medications as prescribed. You have been given a prescription for Maalox for indigestion relief if needed. Appointments: Follow up with PCP within 1 week. Follow up with cardiology within 1-[address] Maria. Follow up with oncology as previously scheduled. Current Hospital Diet Patient's current hospital diet: AHA Diet (Heart Healthy) Discharge Diet Recommended Diet: AHA Diet (Heart Healthy) Pending Studies Studies pending at discharge: no Laboratory Results Last 24 Hours Test 05/11/17 16:45 05/11/17 16:55 05/11/17 19:55 05/11/17 23:08 Urine Color YELLOW Urine Appearance CLEAR Urine pH 7.5 Urine Specific [place] 1.004 Urine Protein NEG Urine Glucose (UA) NEG Urine Ketones NEG Urine Occult Blood NEG Urine Nitrite NEG Urine Bilirubin NEG Urine Urobilinogen NEG Urine Leukocyte Esterase NEG Influenza Type A Antigen Neg for Influ A Influenza Type B Antigen Neg for Influ B White Blood Count 4.10 K/uL Red Blood Count 3.85 M/uL Hemoglobin 11.0 g/dL Hematocrit 31.7 % Mean Corpuscular Volume 82.3 fL Mean Corpuscular Hemoglobin 28.6 pg Mean Corpuscular Hemoglobin Concent 34.7 g/dl Platelet Count 232 K/uL Mean Platelet Volume 10.9 fL Neutrophils (%) (Auto) 79.2 % Lymphocytes (%) (Auto) 9.8 % Monocytes (%) (Auto) 5.9 % Eosinophils (%) (Auto) 2.0 % Basophils (%) (Auto) 2.4 % Neutrophils # (Auto) 3.25 K/uL Lymphocytes # (Auto) 0.40 K/uL Monocytes # (Auto) 0.24 K/uL Eosinophils # (Auto) 0.08 K/uL Basophils # (Auto) 0.10 K/uL RDW Standard Deviation 52.6 fL RDW Coefficient of Variation 17.6 % Immature Granulocyte % (Auto) 0.7 % Immature Granulocyte # (Auto) 0.03 K/uL Prothrombin Time 10.6 SECONDS Prothromb Time International Ratio 1.0 Activated Partial Thromboplast Time 24.8 SECONDS Partial Thromboplastin Ratio 1.0 Sodium Level 136 mmol/L Potassium Level 3.9 mmol/L Chloride Level 102 mmol/L Carbon Dioxide Level 23 mmol/L Anion Gap 11.0 mmol/L Blood Urea Nitrogen 12 mg/dl Creatinine 0.68 mg/dl Est Creatinine Clear Calc Drug Dose 86.9 ml/min Estimated GFR () 108.7 Estimated GFR (Non- 93.7 BUN/Creatinine Ratio 17.0 Random Glucose 92 mg/dl Lactic Acid Level 1.6 mmol/L Calcium Level 8.3 mg/dl Total Bilirubin 0.5 mg/dl Direct Bilirubin 0.1 mg/dl Aspartate Amino Transf (AST/SGOT) 195 U/L Alanine Aminotransferase (ALT/SGPT) 271 U/L Alkaline Phosphatase 164 U/L Troponin I 0.036 ng/ml 0.058 ng/ml 0.053 ng/ml Total Protein 7.2 gm/dl Albumin 3.6 gm/dl Lipase 129 U/L Test 05/12/17 05:05 Troponin I 0.048 ng/ml Medical Emergencies . Who to Call and When: Medical Emergencies: If at any time you feel your situation is an emergency, please call 911 immediately. . Non-Emergent Contact Non-Emergency issues call your: Primary Care Provider Call Non-Emergent contact if: you have a fever, your pain is not controlled, your pain is worsening, your pain is unusual for you, your pain is concerning you, you have any medication questions other concerns with your health. Call 911 or go directly to the Emergency Department if you experience any of the following: Chest pain, chest tightness, shortness of breath, abdominal pain , lightheadedness, dizziness, gastrointestinal bleeding, or have any other concerns regarding your health. . . "Provider Documentation" section prepared by Betian Michelle. . VTE Core Measure Inpt VTE Proph given/why not?: Unfractionated heparin SQ [place] Drug Monitoring Program Search Results: no issues identified
--- NOTE | 2017-05-12 15:11 | EXERCISE STRESS ECHO ---
*NOTICE TO RECEIVING [employer] This information is strictly Confidential and protected under [place] law. [place] law prohibits you from making any further disclosure of this information unless further disclosure is expressly permitted by the written consent of the person to whom it pertains or is authorized by law. A general authorization for the release of medical or other information is not sufficient for this purpose. Hospital accepts no responsibility if the information is made available to any other person, INCLUDING THE PATIENT. Interpretation Summary * Name: MOLINA FRANK Study Date: 05/12/2017 01:17 PM BP: 129/74 mmHg * Patient Location: C.2T\S\E221\S\1 HR: 78 * : 1955 (M/d/yyyy) Gender: Female Height: 65 in * Age: 62 yrs Ethnicity: CA Weight: 160 lb * Ordering Physician: Lakisha Michelle * Referring Physician: Self, Referred * Performed By: Alysa Pruett RDCS * * Reason For Study: CHEST PAIN * BSA: 1.8 m2 * -- Conclusions -- * Diagnostic exercise echocardiogram without definitive evidence of inducible ischemia Procedure Details * ECHOEX, CPT #39187 Left Ventricular Findings with Stress * Diagnostic exercise echocardiogram without definitive evidence of inducible ischemia Stress Parameters * Normal baseline electrocardiogram. * There was [address] depression at peak exertion * Rest heart rate was '78' BPM. * Rest blood pressure was '129/74' * Maximum heart rate achieved was 148 bpm. * Maximum heart rate was 93 % of maximum age-predicted heart rate. * Maximum blood pressure was '201/81' * Total exercise time was '6:00' * Maximum exercise MET level achieved was '7' METS * Maximum treadmill speed was '2.5' miles per hour. * Maximum treadmill elevation was '12'% grade. * Exercise was terminated due to 'ACHIEVING TARGET HR' Left Ventricular Findings with Stress * Baseline EKG was normal There was [address] segment depression at peak exertion which resolved quickly in recovery Baseline echocardiogram was normal There was normal augmentation of all rodriguez without development of wall motion abnormalities at peak exertion No symptoms reported baseline blood pressure was normal There was a hypertensive response to exercise Rebollar treadmill score: 1 (moderate risk)
[2017-05-12] MEDS ORDERED: MLXESC PO (15:15)
--- NOTE | 2017-05-12 15:56 | Discharge Summary ---
Discharge Summary Date of Service May 12, 2017. Discharge Summary Admission Date: May 11, 2017 at 22:20 Discharge Date: May 12, 2017 Discharge Disposition: Home Principal Diagnosis: Noncardiac chest pain Problems/Secondary Diagnoses: Medical Problems: (1) Breast cancer (2) Chest pain (3) Essential (primary) hypertension (4) Gastro-Esophageal Reflux Disease Without Esophagitis (5) Hyperlipidemia, Unspecified (6) Hypothyroidism Nos (7) Tobacco Use Disorder (8) Troponin I above reference range (9) Vitamin D Deficiency, Unspecified Surgical Problems: (1) History of mastectomy Procedures: CT ANGIOGRAM OF THE CHEST 05/12/17 IMPRESSION: 1. No acute intrathoracic findings 2. No evidence of acute pulmonary embolism 3. No evidence of focal pulmonary consolidation CXR 05/11/17 IMPRESSION: No active disease in the chest. Biliary ultrasound 05/11/17 IMPRESSION: Normal biliary ultrasound. Stress Echocardiogram 05/12/17 * -- Conclusions -- * Diagnostic exercise echocardiogram without definitive evidence of inducible ischemia Consultations: Cardiology Medication Reconciliation New Medications: Aluminum/Magnesium/Simeth (Mag-Al Plus Xs 400-400-40 mg/5Ml) 30 Ml Susp 15 ML PO Q4H PRN for Dyspepsia for 7 Days, #420 ML Continued Medications: Albuterol Hfa (Ventolin Hfa) 200 Puffs/22364 Mcg Aers 2 PUFFS INH Q6H PRN for PRN, #1 INHALER Budesonide/Formoterol Fumarate (Symbicort 160/4.5 Inhaler ) Aero 2 PUFFS INH QAM, INHALER Calcium Carbonate (Tums) 500 Mg Chew 1-2 TABS PO PRN UD for ACID REFLUX Cholecalciferol (Vitamin D) 2,000 Unit Cap 2000 UNIT PO DAILY Escitalopram Oxalate (Lexapro) 10 Mg Tab 20 MG PO QAM, TAB Irbesartan (Avapro) 150 Mg Tab 150 MG PO QAM, TAB Levothyroxine Sodium (Levothyroxine Sodium) 112 Mcg Tab 1 TAB PO AM for 0 Days, TAB 3 Refills Multivitamin (Multivitamin) Tab 1 TAB PO QAM, TAB Discharge Exam Subjective Pt evaluation today including: conversation w/ patient, physical exam, chart review, lab review, review of studies, conversation w/ information security consultant Pain: None PO Intake: Ate breakfast without difficulty Voiding: no voiding problems The patient was seen and examined this morning. Pt reports doing ok. She reports feeling anxious this morning and feels that everything always comes at once for her. She reports that she initially had substernal chest pain along with nausea and vomiting 2, with subsequent dry heaving which started on Thursday afternoon. She denies any radiation of pain or shortness of breath. She continued to feel ill throughout Thursday night, and then on Thursday also felt she was not quite herself. On Thursday morning the patient presented for routine appointment at the cancer care center and had elevated LFTs so was sent over to the emergency department. There was no troponin drawn with routine labs in the cancer [facility] per EMR. With the slight elevation in troponins, 2D echo ordered and does show wall motion abnormalities. A stress echo has been ordered for this afternoon per Dr. Maria Additional Comments: Constitutional: No fever, sweats or chills Eyes: No diplopia, no worsening or blurred vision ENT: normal hearing, no trouble swallowing Respiratory: No cough, sputum, dyspnea at rest or on exertion Cardiovascular: No chest pain, tightness or palpitations Abdomen: No pain, nausea, vomiting, diarrhea or constipation Musculoskeletal: No joint pain, calf pain, swelling Neurologic: No weakness, numbness/tingling, or balance problems Psychiatric: No anxiety or depression Skin: No rash or itch Physical Exam Notes: General: awake, alert, no apparent distress Head: Normocephalic, atraumatic, + alopecia due to chemotherapy ENT: PERRL, EOMI, no pharyngeal exudate, mucous membranes moist Chest: Chest nontender to palpation, Clear to auscultation, on room air, no adventitious breath sounds Cardiac: Regular rate and rhythm, + soft systolic murmur, no JVD, normal peripheral pulses, good capillary refill Abdominal: NABS x 4 quadrants, soft, nontender to palpation, no rebound, guarding or tenderness Extremities: Normal inspection, no peripheral edema or erythema, calfs nontender to palpation Psych: Normal mood and affect, slightly anxious at times Neuro: AAO x 3, strength intact bilaterally and related 5/5, no motor deficits, speech is clear, no peripheral sensory deficits Hospital Course 62 y/o F Hx HTN, hypothyroidism, GERD, breast CA - currently on chemo, remote smoking hx x 25 years 1 ppd. Pt had an episode of nausea, vomiting, diaphoresis, in addition to abdominal and chest pain 2 days prior to admission on 05/11. Atypical chest pain with associated nausea/vomiting - ? NSTEMI - Initial troponin 0.036, 0.058, 0.053, 0.048 - upward then downward trend with serial troponins. At this time the patient is asymptomatic. - EKG reviewed and negative for ST wave inversions/signs of ischemia - Echo completed: * -- Conclusions -- * There is borderline concentric left ventricular hypertrophy. * Left ventricular systolic function is normal. * There are regional wall motion abnormalities as specified. * There is mild mitral regurgitation. * Right ventricular systolic pressure is normal. * A compared to study performed on 02/02/2017, there does appear to be a subtle change in the apical lateral wall motion. There is also evidence of mitral regurgitation. - Discussion held with Dr. Maria this morning - stress test this afternoon was considered negative for myocardial ischemia - continue on ASA and Morphine PRN for any recurrent CP. - Cholesterol is borderline at 203 - Pt has remote smoking hx of 25 years 1ppd but quit a long time ago. 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 Follows with Dr. Hanson as an outpatient. Elevated Transaminases - LFTs being trended - AST improved, ALT remains stable, Alk phos elevated, and lactate dehydrogenase also elevated. Appears her levels have been somewhat elevated since January, so possibly a slight adverse reaction to chemotherapy. Total and direct bili are WNL. - Will need to be monitored as an out pt by oncology within 1 week. Full code - Lovenox prophylaxis Disposition: From home, lives with , discharge to home today Total Time Spent: Greater than 30 minutes This includes examination of the patient, discharge planning, medication reconciliation, and communication with other providers. Discharge Instructions Please refer to the electronic Patient Visit Report (Discharge Instructions) for additional information. Follow-Up Follow up with your Primary Care Provider within 1 week. Follow up with cardiology within 2 weeks. Follow up with oncology as previously scheduled. Additional Copies To Eduardo Paredes M.D.; Patrick Hanson MD
[2017-05-12 16:11] VITALS: BP 123/76; PULSE 77; TEMP 37.1; O2SAT 97
== END 2017-05-12 16:32 | disposition home or self-care (01) ==
LOC: C.EDB 14:32 → C.2T 22:20 → ENRESERV 22:29
PROVIDERS: ADMIT Internal Medicine; ATTEND Internal Medicine
DX: R07.89 Other chest pain (principal); R10.9 Unspecified abdominal pain; R79.89 Other specified abnormal findings of blood chemistry; I10 Essential (primary) hypertension; K21.9 Gastro-esophageal reflux disease without esophagitis; C50.912 Malignant neoplasm of unspecified site of left female breast; E78.5 Hyperlipidemia, unspecified; E03.9 Hypothyroidism, unspecified; F17.200 Nicotine dependence, unspecified, uncomplicated; E55.9 Vitamin D deficiency, unspecified; Z90.12 Acquired absence of left breast and nipple; Z79.899 Other long term (current) drug therapy; Z91.010 Allergy to peanuts; Z91.013 Allergy to seafood; Z88.7 Allergy status to serum and vaccine

== ENCOUNTER → 2017-06-01 | Outpatient (CLI) | payer OTHER ==
[~2017-06-01] MED LIST changes: -ASPI81TA28 PO; +CALC500C3 PO; +CHOL200010 PO; +IRBE-37 PO; +MLXESC PO; -TRAM-10 PO; +VNTHFA/IN INH
--- NOTE | 2017-06-01 11:31 | DIAGNOSTIC IMAGING REPORT ---
CHEST 2 VIEWS ROUTINE CLINICAL HISTORY: R05 [id number] dyspnea COMPARISON STUDY: 05/11/2017 FINDINGS: Slight interstitial prominence throughout both hemithoraces. There are no consolidative infiltrates. Diaphragms are smooth. Central catheter remains in the superior vena cava. IMPRESSION: Findings consistent with a diffuse bilateral interstitial pneumonitis. The above report was generated using voice recognition software. It may contain grammatical, syntax or spelling errors. Electronically signed by: Theron Olmos M.D. 06/01/2017 11:29 AM Dictated Date/Time: 06/01/2017 11:28 AM
== END | disposition home or self-care (01) ==
LOC: C.RAD1850 11:01
PROVIDERS: ATTEND Internal Medicine
DX: R05 Cough (principal)

== ENCOUNTER → 2017-06-01 | Outpatient (CLI) | payer OTHER ==
[2017-06-01 12:40] LABS: BASO % 0.5 %; BASO ABS # 0.06 K/uL (0-0.2); EOS % 1.4 %; EOS ABS # 0.18 K/uL (0-0.5); HEMATOCRIT 34.4 % (37-47); HEMOGLOBIN 11.4 g/dL (12.0-16.0); IG# 0.12 K/uL (0.00-0.02); LYMPH % 4.4 %; LYMPH ABS # 0.58 K/uL (1.2-3.4); MEAN CELL VOLUME 81.1 fL (80-100); MEAN CORPUSCULAR HEMOGLOBIN 26.9 pg (25-34); MEAN CORPUSCULAR HGB CONC 33.1 g/dl (32-36); MEAN PLATELET VOLUME 10.9 fL (7.4-10.4); MONO % 3.8 %; NEUT ABS # 11.73 K/uL (1.4-6.5); PLATELET COUNT 351 K/uL (130-400); RED CELL DISTRIBUTION WIDTH CV 18.1 % (11.5-14.5); RED CELL DISTRIBUTION WIDTH SD 53.4 fL (36.4-46.3); WHITE BLOOD COUNT 13.17 K/uL (4.8-10.8)
[2017-06-01 13:04] LABS: ALBUMIN 3.5 gm/dl (3.4-5.0); ALT/SGPT 19 U/L (12-78); AST/SGOT 16 U/L (15-37); BLOOD UREA NITROGEN 12 mg/dl (7-18); CALCIUM 9.3 mg/dl (8.5-10.1); CARBON DIOXIDE 25 mmol/L (21-32); CREATININE 0.66 mg/dl (0.60-1.20); GLUCOSE 93 mg/dl (70-99); POTASSIUM 4.7 mmol/L (3.5-5.1); SODIUM 131 mmol/L (136-145); TOTAL PROTEIN 7.7 gm/dl (6.4-8.2)
[2017-06-01 13:05] LABS: ALKALINE PHOSPHATASE 133 U/L (45-117)
== END | disposition home or self-care (01) ==
LOC: C.LABBFT 09:57
PROVIDERS: ATTEND Internal Medicine
DX: C50.311 Malignant neoplasm of lower-inner quadrant of right female breast (principal); E55.9 Vitamin D deficiency, unspecified; E03.9 Hypothyroidism, unspecified; I10 Essential (primary) hypertension; E78.5 Hyperlipidemia, unspecified

== ENCOUNTER → 2017-06-09 | Outpatient (CLI) | payer OTHER ==
--- NOTE | 2017-06-09 15:25 | DIAGNOSTIC IMAGING REPORT ---
CT SCAN OF THE CHEST WITHOUT IV CONTRAST CLINICAL HISTORY: Breast cancer. Cough and dyspnea. Clinical concern for pneumonia. COMPARISON STUDY: Chest CT dated 05/11/2017. Chest x-ray dated 06/01/2017. TECHNIQUE: CT scan of the thorax was performed from the thoracic inlet to the upper abdomen. Images are reviewed in the axial, sagittal, and coronal planes. IV contrast was not administered for this examination as per the referring clinician. A dose lowering technique was utilized adhering to the principles of ALARA. CT DOSE: 245.71 mGycm FINDINGS: Thyroid: Atrophic. Thoracic aorta: There is mild atherosclerotic calcification of the thoracic aorta, which is normal in caliber and demonstrates standard 3-vessel arch anatomy. A left subclavian central venous infusion port is in place. Heart: The heart is normal in size and without pericardial effusion. There are scattered coronary artery calcifications. Lungs and pleural spaces: Emphysema is noted. Subpleural reticulation and patchy groundglass consolidation is seen throughout both lungs. A trace right pleural effusion is identified. No lobar consolidation is seen. The trachea and central airways are clear. Mediastinum: There is no mediastinal lymphadenopathy. Clau: Not well assessed without IV contrast. Axillae: Surgical clips are noted in the right axilla. Irregular soft tissue in the right axilla likely resents scar tissue. No axillary adenopathy is identified. Upper abdomen: Partially visualized upper abdominal viscera is within normal limits. Skeletal structures: The skeletal structures are osteopenic. No lytic or blastic bony lesions are seen. Soft tissues: The right breast is surgically absent. IMPRESSION: 1. There is subpleural reticulation and diffuse patchy groundglass consolidative change seen throughout both lungs. This is new from 05/11/2017 and likely represents an infectious/inflammatory pneumonitis. Clinical correlation will be required. 2. Emphysema. 3. There is no convincing evidence of intrathoracic metastatic disease. 4. Additional findings as above. Electronically signed by: Carlos A Govea M.D. 06/09/2017 3:23 PM Dictated Date/Time: 06/09/2017 3:18 PM
== END | disposition home or self-care (01) ==
LOC: C.CTS 14:48
PROVIDERS: ATTEND Internal Medicine Hematology & Oncology
DX: C50.311 Malignant neoplasm of lower-inner quadrant of right female breast (principal); J43.9 Emphysema, unspecified

== ENCOUNTER 2017-06-16 07:25 | Day surgery (SDC) | payer OTHER ==
--- NOTE | 2017-06-15 17:38 | History and Physical ---
History & Physical Date of Service Jun 15, 2017. History & Physical 62-year-old female here for bronchoscopic evaluation of increasing shortness of breath: Patient has a history of breast CA for full evaluation please see below. This time the patient is being evaluated she is having progressive dyspnea on exertion at this time will be able to walk 1 city block before having catch her breath. Along with this she is noting a chronic nonproductive cough and associated rhinitis as well as diarrhea and some minimal bloating.. She currently denies: Fever, chills, productive cough, pleurisy, classic cardiac chest pain, unintentional weight loss. Patient presented in December 2016 with a palpable mass on her right breast. Mammography and ultrasound on 01/02/2017 revealed a hypoechoic solid-appearing mass 3 x 2.4 x 2.2. Ultrasound-guided core needle biopsy 01/02/2017 revealed a high-grade carcinoma which was very poorly differentiation. PET-CT performed revealed an FDG avid nodule/mass consistent with the biopsy site. With some mildly enlarged axillary lymph nodes which were mildly hypermetabolic. MRI of the breast 01/16/2017 revealed an enhancing 3.1 cm right breast mass along with 2 small 5 and 6 mm massive respectively. Right axillary lymph node biopsy/ FNA performed 01/16/2017 was within normal limits. The patient then move forward with right total mastectomy performed 01/27/2017 diagnosing invasive carcinoma grade 3 with a pathologic size of 3.5 x 3 cm. A total of 20 lymph nodes removed all of which were negative for malignancy. Patient has been under the care Dr. Camron Hanson from the Oncology Department and has been receiving Taxol based therapy. Her treatment has been complicated by total chest pain requiring overnight admission for observation but ruled out for ACS. The patient was entered into randomized phase 3 trial of adjuvant therapy comparing doxorubicin plus cyclophosphamide followed by weekly Paxitaxel with or without carboplatin. Recently the patient had a CT of the chest for cough associated dyspnea. Stress echocardiogram 05/12/2017 No definitive signs of inducible ischemia CT thorax 06/09/2017 compared: CTA 05/11/2017, PET/CT 01/12/2017 Emphysematous changes subpleural reticulation with ground-glass consolidation seen throughout both lungs Trace right pleural effusion PmHx: 1. Poorly differentiated carcinoma of the right breast diagnosed 01/02/2017 The pathologic stage IIA (pT2, N0, M0) Chemotherapy agents: Doxorubicin, cyclophosphamide, Paclitaxel 2. Hypertension 3. Hypothyroidism 4. Hyperlipidemia 5. Tobacco use disorder 6. GERD 7. Iatrogenic pneumothorax 8. 2 para 2 9. Asthma PsHx: 1. Modified radical mastectomy 2. Port placement 3. Left hip arthroplasty, labral debridement, chondroplasty/acetabulum Social history Tobacco: Alcohol: : Lives at home with her Family history Fatherlyjoseph Mother--lung cancer Current medications 1. Chemotherapeutic agents: Doxorubicin, cyclophosphamide, Pegfilgrastim, Palonosetron, dexamethasone, Fosaprepitant, diphenhydramine, hydrocortisone, methylprednisolone 2. Symbicort 160-4.52 puffs in the morning 3. Tums PRN 4. Vitamin-D supplementation 5. Lexapro 20 mg daily 6. Irbesartan 150 mg daily 7. Levothyroxine 8. Multivitamin 9. Ventolin HFA p.r.n. Allergies 1. Zostavax 2. Crestor TABS 3. Effexor 4. Singulair TABS 5. Almonds 6. Feather/Down 7. Grass 8. Mold 9. Peanuts 10. Trees 11. Walnuts 12. Weeds Vital Signs Weight: 156 lb 85 oz BMI Calculated: 28.13 BSA Calculated: 1.78 Systolic: 126, LUE, Sitting Diastolic: 74, LUE, Sitting Temperature: 98.2 F Heart Rate: 96 Respiration: 14 O2 Saturation: 90, RA Physical Exam Constitutional General appearance: No acute distress, well appearing and well nourished. Head and Face Palpation of the face and sinuses: Abnormal. Bilateral narrow I blanching with some mild bleeding noted in the right naris. Eyes Conjunctiva and lids: No swelling, erythema or discharge. Pupils and irises: Equal, round, reactive to light. Ophthalmoscopic examination: Normal fundi and optic discs. Ears, Nose, Mouth, and Throat External inspection of ears and nose: Normal. Otoscopic examination: Tympanic membranes translucent with normal light reflex. Canals patent without erythema. Hearing: Normal. Nasal mucosa, septum, and turbinates: Normal without edema or erythema. Lips, teeth, and gums: Normal, good dentition. Oropharynx: Normal with no erythema, edema, exudate or lesions. Neck Neck: Supple, symmetric, trachea midline, no masses. Thyroid: Normal, no thyromegaly. Pulmonary Respiratory effort: No increased work of breathing or signs of respiratory distress. Percussion of chest: Normal. Palpation of chest: Normal. Auscultation of lungs: Clear to auscultation. Cardiovascular Palpation of heart: Normal PMI, no thrills. Auscultation of heart: Normal rate and rhythm, normal S1 and S2, no murmurs. Carotid pulses: 2+ bilaterally. Abdominal aorta: Normal. Femoral pulses: 2+ bilaterally. Pedal pulses: 2+ bilaterally. Examination of extremities for edema and/or varicosities: Normal. Chest Breasts: Normal, no dimpling or skin changes appreciated. Palpation of breasts and axillae: Normal, no masses palpated. Abdomen Abdomen: Non-tender, no masses. Liver and spleen: No hepatomegaly or splenomegaly. Examination for hernias: No hernia appreciated. Anus, perineum, and rectum: Normal sphincter tone, no masses, no prolapse. Stool sample for occult blood: Negative. Genitourinary External genitalia and vagina: Normal, no lesions appreciated. Urethra: Normal, no discharge. Bladder: Not distended, no tenderness. Cervix: Normal, no lesions. Uterus: Normal size, no tenderness, no masses. Adnexa/Parametria: Normal, no masses or tenderness. Lymphatic Palpation of lymph nodes in neck: No lymphadenopathy. Palpation of lymph nodes in axillae: No lymphadenopathy. Palpation of lymph nodes in groin: No lymphadenopathy. Palpation of lymph nodes in other areas: No lymphadenopathy. Musculoskeletal Gait and station: Normal. Digits and nails: Normal without clubbing or cyanosis. Joints, bones, and muscles: Normal. Range of motion: Normal. Stability: Normal. Muscle strength/tone: Normal. Skin Skin and subcutaneous tissue: Normal without rashes or lesions. Palpation of skin and subcutaneous tissue: Normal turgor. Neurologic Cranial nerves: Cranial nerves II-XII intact. Reflexes: 2+ and symmetric. Sensation: No sensory loss. Psychiatric Judgment and insight: Normal. Orientation to person, place, and time: Normal. Recent and remote memory: Intact. Mood and affect: Normal.
[~2017-06-16] VITALS: Ht 162.6 cm; Wt 69.5 kg
[~2017-06-16 07:25] MED LIST changes: +SODIUM CHLORIDE 0.9% 1000ML 1,000 ML IV SCH
[2017-06-16 07:53] VITALS: BP 140/74; PULSE 96; TEMP 36.7; O2SAT 91; Ht 162.6 cm; Wt 69.5 kg
[2017-06-16] MEDS ORDERED: NURSING VERBAL MED ORDER ONE (09:00)
--- NOTE | 2017-06-16 09:05 | Pre Sedation Assessment ---
Pre Sedation Assessment General Date of Sedation: Jun 16, 2017. Vital Signs Past 12 Hours Date Time Temp Pulse Resp B/P (MAP) Pulse Ox O2 Delivery O2 Flow Rate FiO2 06/16/17 07:53 36.7 96 18 140/74 (96) 91 Nasal Cannula 2 Review Cardiovascular: regular rate, rhythm, no edema, no gallop, no JVD, no murmur, normal peripheral pulses Lungs: chest non-tender, lungs clear, normal breath sounds, no respiratory distress, no accessory muscle use Pre-Sedation Airway Assessment Smoking Status: Former Smoker Hx of Sleep Apnea: No Hx of difficult intubation: No Short Thick Neck: No Thyro-mental Distance: > 3 Finger Breadths Oral Cavity: Dental Abnormalities Mallampati Classification: Class II ASA Classification: Class III NPO Status Date of Last Intake of Fluids: Jun 15, 2017 Time of Last Intake of Fluids: 2199 Date of Last Intake of Solids: Jun 15, 2017 Time of Last Intake of Solids: 2199 Procedure Planning Contraindications for Sedation: None Current Medications Reviewed: Yes Notes The planned sedation has been discussed with the patient. Informed Consent was obtained. I have identified the patient, determined the appropriateness of sedation and have assessed the patient immediately prior to the procedure. All medicine(s) and interventions are by my order.
--- NOTE | 2017-06-16 09:56 | Post Sedation Assessment ---
Post Sedation Assessment General Date of Sedation Jun 16, 2017. Vital Signs: Vital Signs Past 12 Hours Date Time Temp Pulse Resp B/P (MAP) Pulse Ox O2 Delivery O2 Flow Rate FiO2 06/16/17 07:53 36.7 96 18 140/74 (96) 91 Nasal Cannula 2 Post Procedure Recovery Score Activity: (2) Moves 4 extremities * Respiration: (2) Deep breath/cough Circulation: (2) +/-20% PreAnes Value Consciousness: (2) Fully Awake Oxygen Saturation: (1) O2 needed for >90% Discharge Sedation Level of Care: Fast Track Phase II Post Sedation Plan On clinical assessment, the patient appears to have tolerated the sedation without complications. Patient is recovering as anticipated. Patient will continue to be monitored by nursing and may be discharged when sedation discharge criteria are met per below protocol. Upon Completions of procedure and additional 15 minutes continue every 5 minute vital signs and the P.A.R. score; then discharge to a Phase I or Fast Track to Phase II per the following guidelines: * Discharge Patient to appropriate Phase II area if PAR is 8 or greater or return to pre- procedure baseline. The post - procedure orders will be as directed. * If PAR score is less than 8 or not return to pre-procedure baseline then patient will follow Phase I monitoring till PAR is reached for Phase II. The Phase I may be done in procedure room or may call to secure a Phase I area. * If naloxone or flumazenil are used for reversal, hold in Phase I for an additional 60 -120 minutes before discharge to Phase II. Please call the Sedation Physician to re-evaluate and complete post-note for discharge to Phase II area. Do NOT discharge from procedure sedation or Phase 1 until post- sedation evaluation note is complete by procedure /sedation MD Sedation Discharge Instructions to be given to the patient at discharge to home.
--- NOTE | 2017-06-16 09:59 | Bronchoscopy Procedure Note ---
Bronchoscopy Procedure Note b Procedure: Bronchoscopy, conscious sedation, bronchial lavage Consent: Obtained through the patient placed into the chart Pre-procedural diagnosis: Taxol-induced pneumonitis Post-procedural diagnosis: Taxol-induced pneumonitis Start time: 927 End time: 945 Total time: 18 minutes Analgesia: 2% liquid lidocaine: Via nebulizer 4% gel lidocaine: Via right naris 2% liquid lidocaine: Via bronchoscopy Sedation: Versed IV: 5mg Fentanyl IV: 100g Procedure: The Room 77 video bronchoscope was used for this procedure and passed down through the right naris Right naris/posterior naris/posterior oropharynx: Anatomically within normal limits Glottis: Anatomically within normal limits Vocal cords: Proper abduction and abduction, anatomically within normal limits Subglottis/trachea/Maia: Anatomically within normal limits Right bronchial tree: Right mainstem bronchus: Anatomically within normal limits Right upper lobe: Anatomically within normal limits Bronchus intermedius: Anatomically within normal limits Right middle lobe: Anatomically within normal limits Right lower lobe: Anatomically within normal limits Findings: No significant findings noted Left bronchial tree: Left mainstem bronchus: Anatomically within normal limits Left upper lobe: Anatomically within normal limits Lingula: Anatomically within normal limits Left lower lobe: Anatomically within normal limits Findings: No significant findings noted Bronchial alveolar lavage: Right middle lobe EBL: None Complications: None Follow-up: ASU
[2017-06-16] MEDS ORDERED: FENTANYL CITRATE INJ 50 MCG/1 ML 2 ML VIAL IV ONE (10:09)
[2017-06-16] MEDS ORDERED: LIDOCAINE 4% INH SOLN 4 ML BTL TOP ONE (10:09)
[2017-06-16] MEDS ORDERED: LIDOCAINE VISCOUS 2% 100ML TOP ONE (10:09)
[2017-06-16] MEDS ORDERED: LIDOCAINE HCL 2% LOCAL 50ML VIAL INSTIL ONE (10:09)
[2017-06-16] MEDS ORDERED: MIDAZOLAM HCL 5 MG/ML 1 ML VIAL IV ONE (10:09)
[2017-06-16 10:27] VITALS: BP 123/76; PULSE 98; TEMP 37.1; O2SAT 92
[2017-06-16 10:50] VITALS: BP 112/68; PULSE 87; O2SAT 94
[2017-06-16 11:22] VITALS: BP 117/68; PULSE 86; TEMP 37.2; O2SAT 94
[2017-06-16 11:50] VITALS: BP 118/66; PULSE 84; TEMP 37.2; O2SAT 94
[2017-06-16 12:20] VITALS: BP 116/77; PULSE 76; O2SAT 95
--- NOTE | 2017-06-16 13:25 | Discharge Instructions ---
Discharge Instructions Date of Service Jun 16, 2017. Admission Reason for Admission: Shortness Of Breath, Malignant Neoplasm Of Breast Discharge Discharge Diagnosis / Problem: Taxol induced pneumonitis Discharge Goals Goal(s): Diagnostic testing Activity Recommendations Activity Limitations: as noted below Exercise/Sports Limitations: as tolerated Shower/Bathe: no limitations Driving or Machine Use: resume 1 day after discharge . Instructions / Follow-Up Instructions / Follow-Up Patient will follow-up with Dr. Camron Hanson in the Oncology Department as well as Dr. Fernando Torrez from the Pulmonary Division. Current Hospital Diet Patient's current hospital diet: Discharge Diet Recommended Diet: Regular Diet Procedures Procedures Performed: BRONCHOSCOPY, conscious sedation, bronchial lavage and 2 step oxygen evaluation Pending Studies Studies pending at discharge: no Laboratory Results Lipid Panel Test 06/01/17 10:00 Range/Units Triglycerides Level 91 0-150 mg/dl Cholesterol Level 189 0-200 mg/dl HDL Cholesterol 40 mg/dl Cholesterol/HDL Ratio 4.7 LDL Cholesterol, Calculated 131 mg/dl Medical Emergencies . Who to Call and When: Medical Emergencies: If at any time you feel your situation is an emergency, please call 911 immediately. . Non-Emergent Contact Non-Emergency issues call your: Wood Room Supervisor Call Non-Emergent contact if: you have a fever, temperature is above 101 Increasing shortness of breath . . "Provider Documentation" section prepared by Fernando Torrez. . Ophthalmic Photographer Recommendations Ophthalmic Photographer Recommendations: Patient will be sent home with supplemental oxygen at 3 liters with exertion and 3 liters with sleep. This is currently being set up by the Pulmonary office.
== END 2017-06-16 14:00 | disposition home or self-care (01) ==
LOC: C.ACU 07:25
PROVIDERS: ATTEND Internal Medicine Critical Care Medicine
DX: J18.9 Pneumonia, unspecified organism (principal); R06.00 Dyspnea, unspecified; Z85.3 Personal history of malignant neoplasm of breast; Z90.11 Acquired absence of right breast and nipple; Z92.21 Personal history of antineoplastic chemotherapy; I10 Essential (primary) hypertension; E03.9 Hypothyroidism, unspecified; E78.5 Hyperlipidemia, unspecified; K21.9 Gastro-esophageal reflux disease without esophagitis; J45.909 Unspecified asthma, uncomplicated; F17.200 Nicotine dependence, unspecified, uncomplicated; Z96.642 Presence of left artificial hip joint; Z80.1 Family history of malignant neoplasm of trachea, bronchus and lung; Z80.7 Family history of other malignant neoplasms of lymphoid, hematopoietic and related tissues; Z88.8 Allergy status to other drugs, medicaments and biological substances; Z91.010 Allergy to peanuts; Z91.048 Other nonmedicinal substance allergy status; Z91.018 Allergy to other foods

== ENCOUNTER 2017-08-08 08:48 | Emergency (ER) | payer OTHER ==
[~2017-08-08] VITALS: Ht 165.1 cm; Wt 79.8 kg
[~2017-08-08 08:48] MED LIST changes: -SODIUM CHLORIDE 0.9% 1000ML 1,000 ML IV SCH
[2017-08-08 08:52] VITALS: TEMP 36.6; Ht 165.1 cm; Wt 79.8 kg
[2017-08-08] MEDS ORDERED: AMOXICILLIN/CLAVULANATE TAB 875 MG TAB PO ONE (09:30)
[2017-08-08] MEDS ORDERED: AMOX875T PO (09:36)
--- NOTE | 2017-08-08 09:37 | EMERGENCY ROOM VISIT NOTE ---
ED Visit Note First contact with patient: 09:04 CHIEF COMPLAINT: Dog bite right third finger yesterday afternoon HISTORY OF PRESENT ILLNESS: Patient is a [id number] 62-year-old female who presents emergency department for evaluation of a dog bite to her right third finger. She states that the Injury occurred yesterday afternoon around 2 PM. She states that she reached for the dog's ball at the same time that he did , and his tooth accidentally punctured her right third finger. She cleansed the area with soap and water and hydrogen peroxide and kept it covered with a bandage, but she states that it continued to bleed until she arrived here in the emergency department at which point it has stopped. She denies any pain. She reports that her tetanus is up-to-date. Her dog's vaccinations are also current. The patient is presently on steroids for a chemotherapy-induced pneumonitis. She is presently being treated for breast cancer. She is not on any blood thinning medications. Denies weakness or numbness of the finger. REVIEW OF SYSTEMS: Review of systems as per HPI. All other systems reviewed were negative. At least 6 systems reviewed. PMH: Electronic medical records are reviewed and summarized as above/below. See Problem List. SOCIAL HISTORY: Patient lives at home. Former smoker. PHYSICAL EXAM: Vital Signs: Reviewed Nurse's notes. CONSTITUTIONAL: Patient is a well-appearing 62-year-old female who is awake and alert and in no acute distress. INTEGUMENTARY: Examination of the right third finger, over the proximal phalanx note a small, roughly 1 x 1 cm soft tissue avulsion. There is adequate subcutaneous tissue and granulation material present. The tendinous structures are not visualized. The area is slightly tender to palpation, but there is full range of motion. There is no active bleeding. No foreign body. EMERGENCY DEPARTMENT COURSE: The patient was seen and examined as above. She has a superficial soft tissue avulsion on the dorsal aspect of the right third finger over the proximal phalanx. It is well granulated.. There is no joint tenderness and full range of motion. Fracture was felt to be unlikely. The wound is not amenable to suturing, nor would this be appropriate as it is secondary to a dog bite, which occurred greater than 12 hours ago. It was discussed with the patient that the wound would need to heal by secondary intention. The wound was cleansed and dressed with Xeroform and a light bandage. The patient was treated with Augmentin. Wound care measures were discussed. She was educated on the worrisome signs or symptoms for which she should return to the emergency department. There is no evidence for extensor tendon injury. Medication reconciliation: I attest that I have personally reviewed the patient' s current medication list. Blood pressure screening : Patient was found to have normal blood pressure on screening and does not require follow-up. Problem List Medical Problems: (1) Acute sinusitis Status: Resolved (2) Acute sinusitis Status: Resolved (3) Breast cancer Status: Chronic (4) Chest pain Status: Resolved (5) Enthesopathy Of Hip Status: Chronic (6) Essential (primary) hypertension Status: Chronic (7) Gastro-Esophageal Reflux Disease Without Esophagitis Status: Chronic (8) Hyperlipidemia, Unspecified Status: Chronic (9) Hypothyroidism Nos Status: Chronic (10) NSTEMI (non-ST elevated myocardial infarction) Status: Resolved (11) Tobacco Use Disorder Status: Chronic (12) Troponin I above reference range Status: Resolved (13) Vitamin D Deficiency, Unspecified Status: Chronic Surgical Problems: (1) History of mastectomy Status: Resolved Current/Historical Medications Scheduled Amoxicillin & Pot Clavulanate (Augmentin 875-125 mg), 1 TAB PO BID Calcium Carbonate (Tums), 1-2 TABS PO PRN UD Cholecalciferol (Vitamin D), 2,000 UNIT PO DAILY Escitalopram Oxalate (Lexapro), 20 MG PO QAM Hydrochlorothiazide (Hctz), 25 MG PO DAILY Irbesartan (Avapro), 150 MG PO QAM Levothyroxine Sodium (Levothyroxine Sodium), 1 TAB PO AM Multivitamin (Multivitamin), 1 TAB PO QAM Scheduled PRN Aluminum/Magnesium/Simeth (Mag-Al Plus Xs 400-400-40 mg/5Ml), 15 ML PO Q4H PRN for Dyspepsia Allergies Coded Allergies: Fish (Verified Allergy, Unknown, FROM ALLERGY TEST, 08/08/17) Fish Allergy (Verified Allergy, Unknown, unknown, 08/08/17) Goose Feathers (Verified Allergy, Unknown, UNKNOWN, 08/08/17) Grass (Verified Allergy, Unknown, GRASS,WEEDS,,MOLD,TREES-ITCHY EYES STUFFY NOSE, 08/08/17) Montelukast (Verified Allergy, Unknown, UNKNOWN, 08/08/17) NUTS (Verified Allergy, Unknown, ALMONDS,PEANUTS,WALNUTS-RASH, 08/08/17) Rosuvastatin (Verified Allergy, Unknown, LEG CRAMPS, 08/08/17) Zoster Vaccine Live (Verified Allergy, Unknown, HIVES, 08/08/17) Venlafaxine (Verified Adverse Reaction, Mild, UNKNOWN, 08/08/17) Uncoded Allergies: FLAXSEED (Allergy, Unknown, FROM ALLERGY TEST, 05/11/17) Vital Signs Date Time Temp Pulse Resp B/P (MAP) Pulse Ox O2 Delivery O2 Flow Rate FiO2 08/08/17 09:46 84 18 118/89 95 Room Air 08/08/17 08:52 36.6 106 20 159/85 97 Room Air Medications Administered Medications (Trade) Dose Ordered Sig/Moses Route Start Time Stop Time Status Last Admin Dose Admin Amoxicillin/ Clavulanate Potassium (Augmentin Tab) 875 mg ONE ONCE PO 08/08/17 09:30 08/08/17 09:31 DC 08/08/17 09:41 875 MG Departure Information Impression Primary Impression: Dog bite of finger Prescriptions Amoxicillin & Pot Clavulanate (Augmentin 875-125 mg) 1 Tab Tab 1 TAB PO BID, #14 TAB Prov: Sienna Lagunas PA 08/08/17 Referrals Eduardo Paredes M.D. (PCP) Patient Instructions My [facility] Additional Instructions Keep wound clean and dry. Clean gently with mild soap and water, and apply antibiotic ointment and a bandage until healed. Return sooner for any signs of infection (increasing redness, swelling, drainage). Ice and elevate for swelling and pain. Activity as tolerated. Ibuprofen 600 mg and Tylenol 1000 mg every 6 hrs for pain. Amoxicillin Clavulanate (Augmentin) 875mg: Take one pill twice daily for 7 days to prevent infection.. All antibiotics can cause diarrhea. If this occurs and you feel worse or it does not resolve in 1-2 days follow up with your doctor or return to the Emergency Department as this could be signs of serious underlying problems. Any medication can cause an allergic reaction, stop the pills immediately and return to the ER for rash, hives, breathing difficulties, or swelling. Problem Qualifiers Primary Impression: Dog bite of finger Encounter type: initial encounter Qualified Codes: S61.259A - Open bite of unspecified finger without damage to nail, initial encounter; W54.0XXA - Bitten by dog, initial encounter
[2017-08-08] MEDS ORDERED: HYDR25TA4 PO (09:45)
[2017-08-08 09:46] VITALS: BP 118/89; PULSE 84; O2SAT 95
== END 2017-08-08 09:46 | disposition home or self-care (01) ==
LOC: C.EDB 08:50 → C.EDA 09:46
DX: S61.252A Open bite of right middle finger without damage to nail, initial encounter (principal); W54.0XXA Bitten by dog, initial encounter; C50.919 Malignant neoplasm of unspecified site of unspecified female breast; J70.2 Acute drug-induced interstitial lung disorders; E03.9 Hypothyroidism, unspecified; Z79.899 Other long term (current) drug therapy; Z91.013 Allergy to seafood; Z91.048 Other nonmedicinal substance allergy status; Z91.018 Allergy to other foods; Z88.7 Allergy status to serum and vaccine; Z88.8 Allergy status to other drugs, medicaments and biological substances

== ENCOUNTER → 2017-10-14 | Outpatient (CLI) | payer OTHER ==
[~2017-10-14] MED LIST changes: +HYDR25TA4 PO; -SYMIN160 INH; -VNTHFA/IN INH
[2017-10-14 13:08] LABS: URIC ACID 4.8 mg/dl (2.6-7.2)
[2017-10-15 12:29] LABS: ANA SCREEN TC 249X POSITIVE (NEGATIVE)
[2017-10-16 12:25] LABS: ANA TITER 1:40 TITER (<1:40)
== END | disposition home or self-care (01) ==
LOC: C.LABBFT 09:50
PROVIDERS: ATTEND Internal Medicine
DX: M25.50 Pain in unspecified joint (principal); E03.9 Hypothyroidism, unspecified; E55.9 Vitamin D deficiency, unspecified

== ENCOUNTER → 2017-11-02 | Outpatient (CLI) | payer OTHER ==
--- NOTE | 2017-11-02 15:09 | DIAGNOSTIC IMAGING REPORT ---
L ANKLE MIN 3 VIEWS ROUTINE CLINICAL HISTORY: R76.8 Positive ANIRUDH (antinuclear antibody)M25.50 left ankle pain COMPARISON: None. DISCUSSION: No fractures or dislocations are visualized. There are no erosive or destructive changes. The joint space appears well-preserved for age. IMPRESSION: 1. No fractures identified. 2. No evidence of erosive disease Electronically signed by: Thom Cox M.D. 11/02/2017 3:08 PM Dictated Date/Time: 11/02/2017 3:07 PM
--- NOTE | 2017-11-02 15:10 | DIAGNOSTIC IMAGING REPORT ---
L HAND MIN 3 VIEWS ROUTINE CLINICAL HISTORY: R76.8 Positive ANIRUDH (antinuclear antibody)M25.50 left hand pain COMPARISON: None. DISCUSSION: There is periarticular osteopenia. There are no acute fractures. There is no erosive disease. There are mild osteoarthritic type changes the level the first carpal metacarpal joint. A deformity involving the tuft of distal phalanx the third finger is felt to be old. IMPRESSION: 1. Osteopenia 2. No acute fractures 3. No evidence of erosive disease Electronically signed by: Thom Cox M.D. 11/02/2017 3:09 PM Dictated Date/Time: 11/02/2017 3:08 PM
--- NOTE | 2017-11-02 15:13 | DIAGNOSTIC IMAGING REPORT ---
R HAND MIN 3 VIEWS ROUTINE CLINICAL HISTORY: R76.8 Positive ANIRUDH (antinuclear antibody)M25.50 Arthralgia of right hand COMPARISON: None. DISCUSSION: There is mild particular osteopenia. There are no acute fractures. There are no erosive or destructive changes. The joint spaces appear relatively well preserved for age. IMPRESSION: Osteopenia. No acute fractures. No evidence of erosive disease. Electronically signed by: Thom Cox M.D. 11/02/2017 3:12 PM Dictated Date/Time: 11/02/2017 3:11 PM
== END | disposition home or self-care (01) ==
LOC: C.RAD1850 14:55
PROVIDERS: ATTEND Internal Medicine Rheumatology
DX: M25.50 Pain in unspecified joint (principal); M79.1 Myalgia; M79.2 Neuralgia and neuritis, unspecified; R76.8 Other specified abnormal immunological findings in serum; E03.9 Hypothyroidism, unspecified; M85.89 Other specified disorders of bone density and structure, multiple sites

== ENCOUNTER 2019-05-17 09:12 | Observation (INO) ==
--- NOTE | 2019-05-05 14:51 | PAT Medication Instructions ---
Medication Instructions Date of Service May 05, 2019 Home Medications Medication Instructions Recorded nebulizer accessories #1 ea 03/07/19 nebulizer and compressor #1 ea 03/07/19 Oxygen Home #1 ea 03/18/19 escitalopram oxalate 20 mg tablet 20 mg PO QAM #90 tab 04/21/19 irbesartan 150 mg tablet 150 mg PO QAM #90 tab 04/21/19 levothyroxine 100 mcg tablet 100 mcg PO QAM #90 tab 04/25/19 azelastine 137 mcg (0.1 %) nasal 2 spray INTNAS DAILY #30 ml 05/03/19 spray aerosol ascorbic acid (vitamin C) [Vitamin C] 500 mg PO QAM hydrochlorothiazide 25 mg PO QAM multivitamin 1 tab PO QAM coQ10 (ubiquinol) 200 mg PO QPM pravastatin 10 mg PO HS escitalopram oxalate 20 mg tablet 20 mg PO QAM irbesartan 150 mg tablet 150 mg PO QAM levothyroxine 100 mcg tablet 100 mcg PO QAM azelastine 137 mcg (0.1 %) nasal spray aerosol 2 spray INTNAS DAILY albuterol sulfate 2 puff INHALATION UD PRN albuterol sulfate 2.5 mg INHALATION UD PRN alprazolam [Xanax] 0.25 mg PO UD PRN budesonide-formoterol [Symbicort] 2 puffs INH BID calcium carbonate-vitamin D3 [Caltrate 600 plus D] 1 tab PO BID loratadine [Claritin] 10 mg PO UD PRN STOP taking 2 weeks before surgery (or as soon as possible if surgery is within 2 weeks) coQ10 (ubiquinol) 200 mg PO QPM DO NOT take the morning of surgery ascorbic acid (vitamin C) [Vitamin C] 500 mg PO QAM hydrochlorothiazide 25 mg PO QAM multivitamin 1 tab PO QAM irbesartan 150 mg tablet 150 mg PO QAM calcium carbonate-vitamin D3 [Caltrate 600 plus D] 1 tab PO BID loratadine [Claritin] 10 mg PO UD PRN Take morning of surgery With a small sip of water, OTHERWISE NOTHING TO EAT OR DRINK AFTER MIDNIGHT: escitalopram oxalate 20 mg tablet 20 mg PO QAM levothyroxine 100 mcg tablet 100 mcg PO QAM azelastine 137 mcg (0.1 %) nasal spray aerosol 2 spray INTNAS DAILY albuterol sulfate 2 puff INHALATION UD PRN (if needed) albuterol sulfate 2.5 mg INHALATION UD PRN (if needed) alprazolam [Xanax] 0.25 mg PO UD PRN (if needed) budesonide-formoterol [Symbicort] 2 puffs INH BID Take evening before surgery pravastatin 10 mg PO HS albuterol sulfate 2 puff INHALATION UD PRN (if needed) albuterol sulfate 2.5 mg INHALATION UD PRN (if needed) alprazolam [Xanax] 0.25 mg PO UD PRN (if needed) budesonide-formoterol [Symbicort] 2 puffs INH BID calcium carbonate-vitamin D3 [Caltrate 600 plus D] 1 tab PO BID loratadine [Claritin] 10 mg PO UD PRN (if needed) Other Notes If you have any questions please call us at [phone] or [phone] or [phone] or [phone]
--- NOTE | 2019-05-09 09:46 | Anesthesiology Consultation ---
Date of Service May 09, 2019 Assessment & Plan (1) Encounter for pre-operative examination: Chart Review Chart Review: Acceptable Risk for Surgery and Patient seen in Pre Admission Testing Teaching & Discussion Instructed NPO after midnight before surgery, except medications with 15 cc of water. Medication instructions provided according to the PAT guidelines. History Surgery Operation Date: 05/17/19 11:35 Proposed Procedures p Right Video Assisted Thoracoscopy with Lung Biopsy - Bhupendra Rea MD, FACS Height/Weight Height: 5 ft 4 in Weight: 80.1 kg Allergies Allergy/AdvReac Type Severity Reaction Status Date / Time feathers Allergy Unknown Sneezing Verified 05/05/19 13:59 Fish Containing Products Allergy Unknown Hives Verified 05/05/19 13:59 grass pollen-perennial rye, Allergy Unknown GRASS,WEEDS,,MOLD,TREES-ITCHY Verified 05/05/19 13:59 standar EYES STUFFY NOSE montelukast Allergy Unknown nose bleeds Verified 05/05/19 13:59 nut - unspecified Allergy Unknown ALMONDS,PEANUTS,WALNUTS-hives, Verified 05/05/19 13:59 itchy tongue rosuvastatin Allergy Unknown LEG CRAMPS Verified 05/05/19 13:59 venlafaxine Allergy Unknown visual Verified 05/05/19 13:59 disturbance zoster vaccine live Allergy Unknown HIVES Verified 05/05/19 13:59 Fish Allergy Unknown Hives Uncoded 05/05/19 13:59 FLAXSEED Allergy Unknown FROM Uncoded 05/05/19 13:59 ALLERGY TEST Medications Home Medications Medication Instructions Recorded Confirmed Last Taken ascorbic acid (vitamin C) [Vitamin 500 mg PO QAM 05/18/18 05/05/19 05/27/18 C] hydrochlorothiazide 25 mg PO QAM 05/18/18 05/05/19 08/15/18 multivitamin 1 tab PO QAM 05/18/18 05/05/19 08/14/18 coQ10 (ubiquinol) 200 mg PO QPM 07/29/18 05/05/19 08/14/18 pravastatin 10 mg PO HS 07/29/18 05/05/19 08/14/18 nebulizer accessories #1 ea 03/07/19 05/03/19 Unknown nebulizer and compressor #1 ea 03/07/19 05/03/19 Unknown Oxygen Home #1 ea 03/18/19 05/03/19 Unknown escitalopram oxalate 20 mg tablet 20 mg PO QAM #90 tab 04/21/19 05/05/19 Unknown irbesartan 150 mg tablet 150 mg PO QAM #90 tab 04/21/19 05/05/19 Unknown levothyroxine 100 mcg tablet 100 mcg PO QAM #90 tab 04/25/19 05/05/19 Unknown azelastine 137 mcg (0.1 %) nasal 2 spray INTNAS DAILY #30 ml 05/03/19 05/05/19 Unknown spray aerosol albuterol sulfate 2 puff INHALATION UD PRN 05/05/19 05/05/19 Unknown albuterol sulfate 2.5 mg INHALATION UD PRN 05/05/19 05/05/19 Unknown alprazolam [Xanax] 0.25 mg PO UD PRN 05/05/19 05/05/19 Unknown budesonide-formoterol [Symbicort] 2 puffs INH BID 05/05/19 05/05/19 Unknown calcium carbonate-vitamin D3 1 tab PO BID 05/05/19 05/05/19 Unknown [Caltrate 600 plus D] loratadine [Claritin] 10 mg PO UD PRN 05/05/19 05/05/19 Unknown Past Medical History Medical History (Updated 05/09/19 @ 16:09 by Bulmaro Calderon) Anxiety Asthma Daily symbicort, last Ventolin use FEB 2019 Cancer of right breast diagnosed 2016--sx, chemo, radiation Depression Generalized osteoarthritis of multiple sites (Acute) Heart murmur Occ heard, not noted on exam at PAT History of rheumatic fever as a child History of vitamin D deficiency Hyperlipidemia (Acute) Hypertension Hyponatremia Ranges anywhere between 131 and 139 dating back to 2017. Interstitial lung disease On home oxygen therapy 2 L HS AND PRN. 93% on RA at [facility]. Osteopenia (Acute) Restless legs syndrome (Acute) Thyroid disease Exercise / Class Metabolic Activity II 4-5 Yardwork/Stairs/Walk up hill (Dpes stairs daily at home without CP or SOB) Past Family History Family History Son Family history of reaction to anesthesia PONV Father Non Hodgkin's lymphoma Family history of esophageal cancer Family/Other Diabetes Bipolar disorder Mother Lung cancer Other No family history of adverse response to anesthesia No family history of bleeding disorder Denies family history of Breast cancer Colorectal cancer Past Surgical History Surgical History History of arthroscopy LEFT HIP History of breast biopsy History of breast surgery right breast scar revision History of colonoscopy History of hand surgery LEFT RING FINGER History of modified radical mastectomy of right breast 2017 History of tonsillectomy History of tooth extraction History of total abdominal hysterectomy and bilateral salpingo-oophorectomy 2010 History of vascular access device LEFT CHEST A PORT; CURRENTLY PRESENT (LAST ACCESS: fall) Status post repair of nerve HX OF danika median nerve at carpal tunnel Past Anesthesia History No Hx of Anesthesia Complications and No Family Hx of Anesthesia Complications History of PONV No Hx of PONV and Hx of Motion Sickness Social History Smoking Status: Former smoker tobacco type: cigarettes Do You Dip or Chew Tobacco: No Smoking End Date: 15-16 YR AGO Hx Alcohol Use: Yes Alcohol type: wine alcohol intake frequency: a few times a month (1-2 month) Hx Substance Use: No substance use type: does not use Review of Systems Pt denies any recent chest pain, shortness of breath, palpitations, fever or U RI. +cough, mildly productive Physical Exam Vital Signs BP: 125/76 P: 88bpm SPO2: 93% RA T: 98.3 F R: 16 ENMT Mouth: + dental restorations (few crownbs, one implant); no chipped teeth and no loose teeth Thyromental Distance: > or= 3.5 Finger Breadths (3.5) Mallampati Class: III Neck normal visual inspection; neck extension not limited Respiratory normal respiratory effort Auscultation: lungs clear to auscultation bilaterally Cardiovascular Rate/Rhythm: regular rate and regular rhythm Heart Sounds: no murmur Extremities: no edema Testing Laboratory Results 05/09/19 10:00 05/09/19 10:00 Blood Type A Positive 05/09/19 10:00 Antibody Screen NEGATIVE 05/09/19 10:00 *Surgeon's office flagged re: elevated WBC count. Pt reported a mild cough at PAT but did not appear acutely ill, was afebrile. Electrocardiogram Date: 05/17/18 Findings: + NSR @ (85bpm) Nonspecific ST abnormality. Chest X-Ray Date: 03/07/19 IMPRESSION: 1. There is no evidence of pulmonary embolus in the main, lobar, or segmental pulmonary arteries. 2. Emphysematous change is noted, likely with superimposed changes of interstitial lung disease. 3. There is no lobar consolidation or pleural effusion. 4. There is mild diffuse peribronchial thickening as well as significant air trapping within the lower lobes. The appearance suggests bronchitis/active air disease. Clinical correlation will be required. Echocardiogram Date: 05/12/17 EF: 60-65% Borderline concentric LVH. LV systolic function is normal. There appears to be mild hypokinesis involving the distal lateral wall and several views. There is mild mitral regurgitation. RVSP is normal. Compared to study performed on 02/02/2017, there does appear to be a subtle change in the apical lateral wall motion. There is also evidence of mitral regurgitation. Stress Test Date: 05/12/17 Type: exercise Diagnostic exercise echocardiogram without definitive evidence of inducible i schemia. Baseline EKG was normal. There was [address] segment depression at peak exertion which resolved quickly in recovery. Baseline echo was normal with normal augmentation of all rodriguez without development of wall motion abnormalities at peak exertion. No symptoms reported. Baseline blood pressure is normal. There was a hypertensive response to exercise. Rebollar treadmill score 1.
[2019-05-09 10:16] LABS: Basophils # (auto) 0.04 K/uL (0-0.2); Basophils % (auto) 0.2 %; Eosinophils # (auto) 0.16 K/uL (0-0.5); Eosinophils % (auto) 0.9 %; Hematocrit (blood only) 40.9 % (37-47); Hemoglobin 13.5 g/dL (12.0-16.0); Immature Granulocytes # (auto) 0.04 K/uL (0.00-0.02); Immature Granulocytes % (auto) 0.2 %; Lymphocytes # (auto) 1.44 K/uL (1.2-3.4); Mean Corpuscular Hemoglobin 27.4 pg (25-34); Mean Corpuscular Volume 83.1 fL (80-100); Mean Platelet Volume 11.9 fL (7.4-10.4); Monocytes # (auto) 1.05 K/uL (0.11-0.59); Monocytes % (auto) 5.9 %; Neutrophils # (auto) 15.21 K/uL (1.4-6.5); Neutrophils % (auto) 84.8 %; Platelet Count 213 K/uL (130-400); RDW Coefficient of Variation 15.1 % (11.5-14.5); Red Blood Count 4.92 M/uL (4.2-5.4); White Blood Count 17.94 K/uL (4.8-10.8)
[2019-05-09 11:57] LABS: BUN Creatinine Ratio 16.8 (10-20); Calcium 9.4 mg/dl (8.5-10.1); Creatinine Clr Calc Pharmacy 85.6 ml/min; Est GFR (African American) 107.1; Est GFR (Non-African American) 92.4; Potassium 4.6 mmol/L (3.5-5.1)
[~2019-05-17 09:12] MED LIST changes: -CALC500C3 PO; -CHOL200010 PO; -ESCI1TAB9 PO; -HYDR25TA4 PO; -IRBE-37 PO; -LEVO112T4 PO; +LR 15ML/HR IV SCH; -MLXESC PO; -MULT-506 PO
[2019-05-17] MEDS ORDERED: GLYCOPYRROLATE 0.2 MG/ML VIAL ONE (10:21)
[2019-05-17] MEDS ORDERED: MIDAZOLAM HCL 1 MG/ML 2ML VIAL ONE (10:21)
[2019-05-17] MEDS ORDERED: NEOSTIGMINE METHYLSULFATE 5 MG/5 ML SYR ONE (10:21)
[2019-05-17] MEDS ORDERED: PROPOFOL IV EMULSION 10 MG/ML 20 ML VIAL IV ONE (10:21)
[2019-05-17] MEDS ORDERED: ONDANSETRON INJ 2 MG/ML 2 ML VIAL ONE (10:21)
[2019-05-17] MEDS ORDERED: DEXAMETHASONE SOD INJ 4 MG/ML VIAL ONE (10:21)
[2019-05-17] MEDS ORDERED: fentaNYL citrate 100 MCG/2 ML VIAL ONE (10:21)
[2019-05-17] MEDS ORDERED: LIDOCAINE HCL 2% 2 ML VIAL/AMP(20MG/ML) INFIL ONE (10:21)
--- NOTE | 2019-05-17 10:53 | History & Physical Bridge Note ---
Date of Service May 17, 2019 History & Physical Bridge Note I have examined the patient, reviewed the History & Physical and in the interval since the performance of the History & Physical I have noted the following changes of clinical significance: no changes noted
[2019-05-17] MEDS ORDERED: HYDROmorphone INJ 1 MG/ML SYRINGE IV PRN (11:01)
[2019-05-17] MEDS ORDERED: ATROPINE SULFATE 0.1 MG/ML 10ML SYR IV PRN (11:01)
[2019-05-17] MEDS ORDERED: ONDANSETRON INJ 2 MG/ML 2 ML VIAL IV PRN ×2 (11:01→14:09)
[2019-05-17] MEDS ORDERED: KETOROLAC 30 MG/ML VIAL IV PRN (11:02)
[2019-05-17] MEDS ORDERED: SODIUM CHLORIDE 0.9% PF 50 ML VIAL ONE (11:04)
[2019-05-17] MEDS ORDERED: BUPIVACAINE 0.5 % 5 MG/1 ML MPF 30ML VIAL ONE (11:04)
[2019-05-17] MEDS ORDERED: BUPIVACAINE LIPOSOME 1.3% 266 MG/20 ML VIAL ONE (11:05)
[2019-05-17] MEDS ORDERED: CEFAZOLIN 2,000 MG/15 ML IV PUSH IV ONE (11:14)
[2019-05-17] MEDS ORDERED: ROCURONIUM BROMIDE 10 MG/ML 5 ML VIAL ONE (11:48)
[2019-05-17] MEDS ORDERED: PHENYLEPHRINE 100MCG/ML 5ML SYR ONE (11:48)
[2019-05-17] MEDS ORDERED: ePHEDrine sulfate 50 MG/ML SYR ONE (11:57)
[2019-05-17] MEDS ORDERED: METOCLOPRAMIDE HCL INJ 5 MG/ML 2 ML VIAL IV ONE (12:25)
--- NOTE | 2019-05-17 12:46 | XRay Report ---
XR chest 1V portable CLINICAL HISTORY: 64 years-old Female presenting with right lung biopsy. TECHNIQUE: Portable upright AP view of the chest was obtained. COMPARISON: 02/28/2019. FINDINGS: Large bore right pleural drain position at the right apex. Associated soft tissue emphysema along the right lateral chest wall. Left subclavian Mediport terminates in the lower SVC as on prior exam. Sev eral external leads noted. Cardiac mediastinal silhouette normal. Pulmonary vascular prominence to a mild degree, new from prior . There is also mild prominence of the interstitium. There are irregular linear opacities at the lung bases bilaterally. There is also a suture margin in the periphery of the right midlung. No large eff usion. No pneumothorax is appreciable. Osseous structures normal. Upper abdomen normal. IMPRESSION: 1. Postsurgical changes of the right lung. No pneumothorax. 2. Right pleural drain in place. 3. Suspected bibasilar atelectasis. Mild volume overload and congestive change. No uday pulmonary e edgar. ACT 112: Negative or not required by law. Electronically signed by: Liang Larson M.D. 05/17/2019 12:45 PM
--- NOTE | 2019-05-17 13:17 | Anesthesiology Progress Note ---
Date of Service May 17, 2019 Anesthesia Post Procedure Vital Signs Vital Signs: Temp Pulse Pulse Resp BP Pulse Ox 05/17/19 13:00 80 16 113/68 94 05/17/19 12:50 84 14 113/67 93 05/17/19 12:40 82 14 109/70 98 05/17/19 12:30 77 18 124/69 98 05/17/19 12:27 81 14 100/60 95 05/17/19 12:25 84 16 75/60 L 94 05/17/19 12:24 74 12 64/39 L 92 05/17/19 12:23 36.4 C L 75 12 61/39 L 93 05/17/19 09:54 36.6 C 96 H 18 127/83 93 Pain Intensity Right Lateral Axilla: Pain Intensity: 3 Transfer of Care Handoff Completed per policy Notes Mental Status: alert / awake / arousable Patient Amnestic to Procedure: Yes Nausea / Vomiting: adequately controlled Pain: adequately controlled Airway Patency, RR, SpO2: stable & adequate BP & HR: stable & adequate Hydration State: stable & adequate Anesthetic Complications: no major complications apparent
--- NOTE | 2019-05-17 13:58 | Operative Report ---
PG Post Operative Report Pre & Post Diagnosis Operation Date: 05/17/19 11:30 Pre-Op Diagnosis: Interstitial Lung Disease Post-Op Diagnosis: Interstitial Lung Disease I identified the patient and participated in the time-out.: Yes Procedure Operation Date: 05/17/19 11:30 Actual Procedures p Right Video Assisted Thoracoscopy with Lung Biopsy(Right) - Bhupendra Rea MD, FACS Surgeon Bhupendra Rea MD, FACS Tugger Operator Allen CAMP Estimated Blood Loss 10 Findings Consistent with Post-Op Diagnosis Specimens Wedge resection right upper lobe, right middle lobe, right lower lobe. Drains 24 Moroccan right chest tube Anesthesia Type General Complications none Disposition Accompanied Patient To Recovery: Yes Disposition: Recovery Room Description of Procedure This is a 64-year-old female who is referred for evaluation for possible interstitial lung disease. Had a long talk in the office and like to proceed with a biopsy. On 05/17/2019 the patient underwent an uncomplicated right thoracoscopy with wedge biopsies of the upper lobe, middle lobe, and lower lobe. Appropriate cultures were sent. She tolerated it very well. Procedure: On the morning of 05/17/2019 the patient was brought to the operating room and underwent general anesthesia with a single-lumen endotracheal tube. She was turned into the left lateral decubitus position on the table. Appropriate timeout had been called and appropriate antibiotics given, she was sterilely draped in the usual fashion. A 5 mm port was placed posterior to the tip of the scapula. Upon entering the pleural cavity can be seen that there were no adhesions and she had good fissures. The lung did look grossly a bit abnormal. Another 5 mm port was placed anterior to the scapular tip. A 12 mm port was placed just above the diaphragm just a bit anterior to the midaxillary line. Upper lobe was grasped Endo ZANE stapler was fired and a generous portion taken. This was sent for microbiology as well as histology. The same was then done for the middle lobe and the lower lobe. There was no bleeding. There was no air leak. A total of 266 mg of Exparel and 20 cc of solution was mixed with 30 cc of 0.5% ropivacaine and 250 cc of normal saline. It was used to inject each of the 3 port sites. We also use it for an intercostal block from the second to the 12th rib intrathoracicly. A 24 Moroccan chest tube was placed through the 12 mm port and sutured in place with heavy silk suture. 4-0 Monocryl was used to close the skin in a subcuticular fashion at each of the incisions. She tolerated quite well. Was extubated in room and moved to the postanesthesia care unit in stable condition. I attest to the content of the Intraoperative Record and any orders documented therein. Any exceptions are noted below.
[2019-05-17] MEDS ORDERED: ALBUTEROL HFA 8 GM INHALER INH PRN (14:09)
[2019-05-17] MEDS ORDERED: ALPRAZolam 0.25 MG TABLET PO PRN (14:09)
[2019-05-17] MEDS ORDERED: ALBUTEROL 0.083% NEBU SOLN 3 ML VIAL INH PRN (14:09)
[2019-05-17] MEDS ORDERED: MoRPHine SULFATE 2 MG/ML CARP IV PRN (14:09)
[2019-05-17] MEDS ORDERED: LORATADINE 10 MG TAB PO PRN (14:09)
[2019-05-17] MEDS: ACETAMINOPHEN 1,000 MG/100 ML VIAL IV SCH ×2 (16:15→21:40)
[2019-05-17] MEDS: AZELASTINE~ORDER AWAITING ACTION SCH (16:20)
[2019-05-17] MEDS: OXYCODONE HCL IR 5 MG TAB (IMMEDIATE RELEASE) PO PRN (16:21)
[2019-05-17] MEDS: D5W AND 1/2NSS 1,000 ML IV SCH (17:04)
[2019-05-17] MEDS: DOCUSATE SODIUM 100 MG CAP PO SCH (20:36)
[2019-05-17] MEDS: CALCIUM 600MG + VIT D 400 IU TAB PO SCH (20:36)
[2019-05-17] MEDS ORDERED: NON-FORMULARY MEDICATION (Coq10 (Ubiquinol) 200 MG) PO SCH (21:00)
[2019-05-17] MEDS ORDERED: PRAVASTATIN SOD 10 MG TAB PO SCH (21:00)
[2019-05-17] MEDS ORDERED: NON-FORMULARY MEDICATION (Fluticasone Propion-Salmeterol [Advair Hfa] 2 PUFFS) INH SCH (21:00)
[2019-05-17] MEDS: METOCLOPRAMIDE HCL INJ 5 MG/ML 2 ML VIAL IV SCH (21:40)
[2019-05-18] MEDS: AZELASTINE~ORDER AWAITING ACTION SCH ×2 (00:43→07:49)
[2019-05-18] MEDS: D5W AND 1/2NSS 1,000 ML IV SCH ×2 (00:44→02:45)
[2019-05-18] MEDS: ACETAMINOPHEN 1,000 MG/100 ML VIAL IV SCH (05:04)
[2019-05-18] MEDS: METOCLOPRAMIDE HCL INJ 5 MG/ML 2 ML VIAL IV SCH (05:04)
[2019-05-18] MEDS ORDERED: LEVOTHYROXINE SODIUM 100 MCG TABLET PO SCH (06:30)
--- NOTE | 2019-05-18 07:25 | XRay Report ---
XR chest 1V portable CLINICAL HISTORY: 64 years-old Female presenting with right lung biopsy. TECHNIQUE: Portable upright AP view of the chest was obtained. COMPARISON: 05/17/[address] from 03/07/2019. FINDINGS: Large bore right pleural drain remains position at the right apex. Associated small amount of soft ti ssue emphysema along the right lateral chest wall. Left subclavian Mediport again terminates in the l ower SVC. Postsurgical changes of the periphery of the right midlung. Bandlike opacities at the lung bases, left greater than right. Mild pulmonary vascular and interstitial prominence. No pneumothorax. Osseous protuberance along the proximal metaphysis of the right humerus, possibly osteochondroma. Up per abdomen normal. IMPRESSION: 1. Right pleural drain in place with postsurgical changes of the right lung. No pneumothorax. 2. Minimal bibasilar atelectasis similar to prior. 3. Underlying interstitial prominence may correlate with underlying appearance on CTA chest. The estephania earance can be seen in the setting of hypersensitivity pneumonitis and a subacute to chronic phase am guillermo other mixed infiltrative and obstructive processes and infections. ACT 112: Negative or not required by law. Electronically signed by: Liang Larson M.D. 05/18/2019 7:23 AM
--- NOTE | 2019-05-18 08:04 | XRay Report ---
SINGLE VIEW CHEST CLINICAL HISTORY: Chest tube removal. FINDINGS: An AP, portable, upright chest radiograph is compared to study dated 05/18/2019 and correlate d with chest CT dated 03/07/2019. A left subclavian central venous infusion port is unchanged in posi tion. A right-sided chest tube has been removed. No pneumothorax is identified. The heart is mildly e nlarged. The pulmonary vasculature is noncongested. Chronic interstitial thickening is similar to pre vious. Patchy airspace opacities in the right midlung are unchanged. There is bibasilar scarring/atel ectasis. A small pleural effusion is suggested on the right. The bony thorax is grossly intact. Subcu taneous emphysema is noted along the right chest wall. IMPRESSION: 1. A right-sided chest tube has been removed. No pneumothorax is seen. 2. Patchy airspace opacities in the right midlung are unchanged and may be related to recent procedur e. 3. Suspect a small right pleural effusion. ACT 112: Negative or not required by law. Electronically signed by: Carlos A Govea M.D. 05/18/2019 8:03 AM
[2019-05-18 08:07] VITALS: BP 138/74; TEMP 97.9; O2SAT 91
[2019-05-18] MEDS ORDERED: MULTIVITAMIN TAB PO SCH (09:00)
[2019-05-18] MEDS ORDERED: IRBESARTAN 150 MG TAB PO SCH (09:00)
[2019-05-18] MEDS ORDERED: FLUTICASONE/VILANTEROL 200/25MCG 14 PUFFS/INHALER INH SCH (09:00)
[2019-05-18] MEDS ORDERED: ASCORBIC ACID 500 MG TAB PO SCH (09:00)
[2019-05-18] MEDS ORDERED: ENOXAPARIN INJ 40 MG/0.4 ML SYR SQ SCH (09:00)
[2019-05-18] MEDS ORDERED: ESCITALOPRAM OXALATE 20 MG TAB PO SCH (09:00)
[2019-05-18] MEDS: CALCIUM 600MG + VIT D 400 IU TAB PO SCH (09:06)
[2019-05-18] MEDS: DOCUSATE SODIUM 100 MG CAP PO SCH (09:06)
[2019-05-18 10:06] VITALS: PULSE 80
[2019-05-18] MEDS: OXYCODONE HCL IR 5 MG TAB (IMMEDIATE RELEASE) PO PRN (10:44)
--- NOTE | 2019-05-18 17:05 | Discharge Summary ---
DISCHARGE DIAGNOSES: Probable interstitial lung disease. HOSPITAL COURSE: Lolly Valencia is a very nice 64-year-old female who underwent a thoracoscopic biopsy of her right middle, right upper and right lower lobe on 05/17/2019. She did very well with this. She had very little in the way of pain. We removed her chest tube on the morning of postop day #1. Her x-ray looked good. She was discharged home. I will see her back in the office to go over her final pathology results. I was quite pleased with her entire hospital stay. Instructions were given. As stated, I was quite pleased.
== END 2019-05-18 11:20 | disposition home or self-care (01) | DRG 168 ==
LOC: ASU 09:12 → INTOOBSV 12:13 → 3W 12:13
DX: J45.909 Unspecified asthma, uncomplicated; Z91.010 Allergy to peanuts; Z80.0 Family history of malignant neoplasm of digestive organs; F41.8 Other specified anxiety disorders; E55.9 Vitamin D deficiency, unspecified; E78.5 Hyperlipidemia, unspecified; Z81.8 Family history of other mental and behavioral disorders; Z83.3 Family history of diabetes mellitus; J84.89 Other specified interstitial pulmonary diseases; Z91.013 Allergy to seafood; Z87.891 Personal history of nicotine dependence; Z88.8 Allergy status to other drugs, medicaments and biological substances; I10 Essential (primary) hypertension; Z79.899 Other long term (current) drug therapy; Z80.3 Family history of malignant neoplasm of breast; E03.9 Hypothyroidism, unspecified; Z99.81 Dependence on supplemental oxygen